=== PATIENT | female | born 1950 | race Caucasian/White ===

== ENCOUNTER 2017-07-07 07:22 | Inpatient (IN) | payer MEDICARE ==
[~2017-07-07] VITALS: Ht 165.1 cm; Wt 69.9 kg
[2017-07-07] MEDS ORDERED: SODIUM CHLORIDE 0.9% 1000ML 1,000 ML IV STA (07:33)
[2017-07-07] MEDS ORDERED: ALBUTEROL SULF 0.083% NEB SOLN 3 ML NEB NEB STA (07:33)
[2017-07-07] MEDS ORDERED: ONDANSETRON HCL INJ 2 MG/ML VIAL IV STA (07:36)
[2017-07-07] MEDS ORDERED: ALBUTEROL/IPRATROPIUM 3 ML NEB NEB ONE (07:45)
[2017-07-07 08:00] LABS: BASOPHILS # (AUTO) 0.1 (0.0-0.1); BASOPHILS % 0.5 % (0.0-1.0); EOSINOPHILS # (AUTO) 0.2 (0.0-0.4); EOSINOPHILS % 1.3 % (0.0-6.0); HEMATOCRIT 32.5 % (34.2-44.1); LYMPHOCYTES # (AUTO) 5.5 (1.0-3.2); LYMPHOCYTES % 34.3 % (18.0-39.1); MEAN CORPUSCULAR HEMOGLOBIN 27.2 pg (28-32); MEAN CORPUSCULAR HGB CONC 30.8 g/dL (31-35); MEAN CORPUSCULAR VOLUME 88.3 fL (81-99); MONOCYTES % 5.9 % (4.4-11.3); NEUTROPHILS # (AUTO) 9.1 (2.1-6.9); NEUTROPHILS % 56.2 % (38.7-80.0); PLATELET COUNT 416 x10e3/uL (140-360); RED BLOOD COUNT 3.68 x10e6/uL (3.6-5.1); RED CELL DISTRIBUTION WIDTH 25.7 % (11.7-14.4)
[2017-07-07 08:15] LABS: ALBUMIN 3.7 g/dL (3.5-5.0); ALBUMIN/GLOBULIN RATIO 1.2 (0.8-2.0); CALCIUM 9.2 mg/dL (8.4-10.2); CREATININE, SERUM 1.05 mg/dL (0.57-1.11); MAGNESIUM 1.3 MG/DL (1.3-2.1)
[2017-07-07 08:21] LABS: CREATINE KINASE MB 0.6 ng/mL (0.00-5.00); TROPONIN I 0.017 ng/mL (0-0.300)
--- NOTE | 2017-07-07 09:30 | Diagnostic Imaging Report ---
Portable chest x-ray CPT code 93676 INDICATION: COPD, cough, shortness of breath COMPARISON: None FINDINGS: Frontal view of the chest obtained at 0538 hours. The cardiac silhouette is normal. There are several calcifications of the aortic arch. The pulmonary vascular marking are normal. The lungs demonstrate diffuse hyperinflation. There is a scar or chronic atelectasis in the left midlung field. No evidence of mass or infiltrate. The costophrenic angles are sharp. There is no pneumothorax. The osseous structures are intact and normal in morphology. IMPRESSION: 1. Pulmonary hyperinflation suggestive of COPD. 2. No acute cardiopulmonary process. Signed by: Dr. Madhavi Vera MD on 07/07/2017 9:27 AM
[2017-07-07 09:43] LABS: BILIRUBIN,URINE NEGATIVE (NEGATIVE); KETONES,URINE NEGATIVE (NEGATIVE); LEUKOCYTE ESTERASE ,URINE 2+ (NEGATIVE); URINE UROBILINOGEN 0.2 mg/dL (0.2 - 1)
[2017-07-07] MEDS ORDERED: MAGNESIUM SULFATE 2GM/50ML 50 ML IV ONE (09:45)
[2017-07-07 10:23] LABS: NITRITE,URINE POSITIVE (NEGATIVE)
[2017-07-07 10:24] LABS: CLARITY,URINE SL CLOUDY (CLEAR); COLOR,URINE YELLOW (YELLOW); PROTEIN,URINE DIPSTICK 1+ (NEGATIVE)
[2017-07-07 10:28] LABS: BACTERIA,URINE RARE /HPF; EPITHELIAL CELLS,URINE RARE /LPF; RBC,URINE 0-5 /HPF (0-5); WBC,URINE (MAN) 0-5 /HPF (0-5)
[2017-07-07 10:47] LABS: HYPOCHROMASIA SLIGHT; PLATELET ESTIMATE SLIGHTLY INCREASED
[2017-07-07 10:48] LABS: ANISOCYTOSIS MODE; PLATELET MORPHOLOGY COMMENT FEW GIANT; POIKILOCYTOSIS SLIGHT
[2017-07-07 10:49] LABS: RBC MORPHOLOGY COMMENT NORMAL
[2017-07-07] MEDS: ALBUTEROL/IPRATROPIUM 3 ML NEB NEB SCH ×4 (10:57→23:15)
[2017-07-07] MEDS: CEFTRIAXONE SOD 1 GM VIAL IV SCH (11:21)
[2017-07-07] MEDS: AZITHROMYCIN 250 MG TAB PO SCH (11:21)
[2017-07-07] MEDS: METHYLPREDNISOLONE SOD SUCC 40 MG/ML VIAL IV SCH ×2 (11:21→18:49)
[2017-07-07 12:18] VITALS: BP 121/51
[2017-07-07 12:35] VITALS: BP 121/55
[2017-07-07 12:46] VITALS: BP 121/55
[2017-07-07] MEDS ORDERED: VALIUM10 MG (13:02)
[2017-07-07] MEDS ORDERED: D3 DOTS2000 UNIT PO (13:02)
[2017-07-07] MEDS ORDERED: TRIAMTERENE PO (13:02)
[2017-07-07] MEDS ORDERED: ULTRAM50 MG (13:02)
[2017-07-07] MEDS ORDERED: METOPROLOL TART25 MG PO (13:02)
[2017-07-07] MEDS ORDERED: ADVAIR 250-501 EACH INH (13:02)
[2017-07-07] MEDS ORDERED: B-121000 MCG PO (13:02)
[2017-07-07] MEDS ORDERED: zinc PO (13:02)
[2017-07-07] MEDS ORDERED: B-6 PO (13:02)
[2017-07-07] MEDS ORDERED: NEXIUM40 MG PO (13:02)
[2017-07-07] MEDS ORDERED: LIBRAX CAPSULE1 EACH PO (13:02)
[2017-07-07] MEDS ORDERED: ZOFRAN ODT4 MG PO (13:02)
[2017-07-07] MEDS ORDERED: [UNRECOGNIZED DRUG - REMARK] (13:02)
[2017-07-07] MEDS ORDERED: ALLEGRA ALLERGY60 MG PO (13:02)
[2017-07-07] MEDS ORDERED: [UNRECOGNIZED DRUG - OTHER] (13:02)
[2017-07-07] MEDS: SODIUM CHLORIDE 0.9% 1000ML 1,000 ML IV SCH ×2 (13:52→17:34)
[2017-07-07 16:00] VITALS: BP 118/57
[2017-07-07 16:09] LABS: CREATINE KINASE MB 1.1 ng/mL (0.00-5.00); TROPONIN I 0.07 ng/mL (0-0.300)
[2017-07-07] MEDS ORDERED: ACETAMINOPHEN 325 MG TAB PO PRN (17:30)
[2017-07-07] MEDS ORDERED: TRAMADOL HCL 50 MG TAB PO PRN (17:30)
[2017-07-07] MEDS ORDERED: ONDANSETRON HCL INJ 2 MG/ML VIAL IV PRN (17:30)
[2017-07-07] MEDS: METOPROLOL TARTRATE 25 MG TAB PO SCH (18:41)
[2017-07-07 19:51] VITALS: BP 109/64
[2017-07-07] MEDS: PANTOPRAZOLE SOD 40 MG TABEC PO SCH (20:58)
[2017-07-07 23:56] LABS: TROPONIN I 0.049 ng/mL (0-0.300)
--- NOTE | 2017-07-07 23:59 | History and Physical ---
CHIEF COMPLAINT: Shortness of breath. 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 Patient reports that she is on Spiriva and Advair and also some nebulizing treatments, and over the last day or so she has been having some shortness of breath. She denies any chest pain or palpitations. She denies any recent cough, congestion, or any recent fever. No sick contacts around her home. She does use home O2. Patient was seen and evaluated at bedside in the IMU, currently doing much better. She did require BiPAP on admission, magnesium, multiple rounds of neb treatments and steroids. REVIEW OF SYSTEMS: Pertinent positive: Shortness of breath, wheezing. Pertinent negative: Denies any chest pain, palpitation, nausea, vomiting, diarrhea, dysuria, hematuria, frequency, urgency, lightheadedness, dizziness, abdominal pain, headache, or any other complaints. The rest of the 14-point review of systems have been reviewed with the patient and are negative. ALLERGIES: TO CODEINE. HOME MEDICATIONS: She takes: 1. Librax 1 tab p.o. at bedtime. 2. Vitamin D3 2000 units daily. 3. Vitamin B12 1000 mcg daily. 4. Valium 10 mg as needed. 5. Nexium 40 mg at bedtime. 6. Fexofenadine 60 mg daily. 7. Advair 1 inhaled b.i.d. 8. Metoprolol tartrate 25 mg twice daily. 9. Tramadol. PAST MEDICAL HISTORY: COPD, GERD, hypertension. SURGICAL HISTORY: She had tubal ligation and C-sections. She has had pneumothorax in which she required chest tube placement. She has also had cholecystectomy. FAMILY HISTORY: Hypertension and diabetes. SOCIAL HISTORY: Smoked for many years, quit 3 years ago. No drugs, no alcohol. Good social support. PHYSICAL EXAMINATION: VITAL SIGNS: Temperature is 98.7, pulse is 99, respiratory rate is 18, blood pressure is 118/57, pulse ox 97% on 2 liters nasal cannula. GENERAL: Not in acute distress, alert and oriented x3, cooperative on exam. HEENT: Head: Normocephalic, atraumatic. Eyes: Pupils equal, round, and reactive to light bilaterally. Extraocular movements intact bilaterally. Throat: No evidence of any erythema or exudates in the posterior pharynx. Has poor dentition. NECK: Supple with good range of motion. PULMONARY: Has expiratory wheezing appreciated. Decreased breath sounds bilaterally. No crackles, no rales, no rhonchi. CARDIOVASCULAR: Positive S1 and S2. No murmurs, rubs, or gallops appreciated. ABDOMEN: Soft, nondistended, nontender to palpation. Bowel sounds are present. MUSCULOSKELETAL: Strength is 5/5 throughout. No evidence of any musculoskeletal deficit on exam. SKIN: Intact. Warm to touch. Good cap refill. PSYCHIATRIC: Normal affect and mood. EXTREMITIES: No edema. Good range of motion throughout. LAB FINDINGS: Showed white count 16, hemoglobin 10, hematocrit is 33, and platelets of 416,000. Chemistry: Sodium 137, potassium is 4, chloride 99, bicarb 30, anion gap of 12, BUN is 22, creatinine is 1, glucose is 177, calcium 9.2, magnesium 1.3. Total bilirubin is 0.7. LFTs were normal. Troponins were negative. CK 17, albumin 3.7. Urinalysis showed positive nitrite, leukocyte esterase 2+. Serology: Flu was negative. MICROBIOLOGY: Blood and urine cultures are pending. IMAGING STUDIES: Chest x-ray showed pulmonary hyperinflation suggestive of COPD. No other acute cardiopulmonary process was seen. ASSESSMENT AND PLAN: 1. Acute exacerbation of chronic obstructive pulmonary disease--continue with nebulizer treatments, intravenous steroids, antibiotics, p.r.n. bilevel positive airway pressure, nasal cannula. If no improvement, will likely need pulmonary consultation. Continue with her Spiriva and Advair. Respiratory distress due to underlying acute exacerbation of chronic obstructive pulmonary disease. 2. Chronic smoker--patient reports quitting more than 3 years ago, but does not need nicotine patch. 3. Hypertension--stable, continue same home medications. 4. History of gastroesophageal reflux disease--continue on proton pump inhibitor. 5. Prophylaxis will be Lovenox. 6. Fluids, electrolytes, nutrients. Intravenous fluids at 75 mL per hour, heart healthy diet. 7. Disposition. Inpatient, will continue to follow. This case took more than 40 minutes of critical care time due to the patient's underlying respiratory distress requiring significant high level of care. Job#: [id number]
[2017-07-08] VITALS (12 sets, daily range): BP systolic 110–140; BP diastolic 44–68
[2017-07-08] MEDS: METHYLPREDNISOLONE SOD SUCC 40 MG/ML VIAL IV SCH ×3 (02:00→21:20)
[2017-07-08] MEDS: ALBUTEROL/IPRATROPIUM 3 ML NEB NEB SCH ×6 (03:05→19:45)
[2017-07-08] MEDS: SALMETEROL/FLUTICASONE 250/50 INH SCH ×2 (07:00→19:00)
[2017-07-08 07:23] LABS: BASOPHILS % 0.1 % (0.0-1.0); HEMATOCRIT 24.3 % (34.2-44.1); LYMPHOCYTES # (AUTO) 0.8 (1.0-3.2); MEAN CORPUSCULAR HGB CONC 31.3 g/dL (31-35); MEAN CORPUSCULAR VOLUME 86.5 fL (81-99); MONOCYTES # (AUTO) 0.5 (0.2-0.8); MONOCYTES % 6.2 % (4.4-11.3); NEUTROPHILS % 79.1 % (38.7-80.0); PLATELET COUNT 228 x10e3/uL (140-360); RED BLOOD COUNT 2.81 x10e6/uL (3.6-5.1); RED CELL DISTRIBUTION WIDTH 25.4 % (11.7-14.4)
[2017-07-08 07:26] LABS: HEMOGLOBIN 7.6 g/dL (12.0-16.0)
--- NOTE | 2017-07-08 07:27 | Progress Note ---
DATE: July 08, 2017 TIME: 6:50 a.m. OVERNIGHT: Patient cough is improving. REVIEW OF SYSTEMS: Denies any dizziness. PHYSICAL EXAMINATION: VITAL SIGNS: Reviewed. GENERAL APPEARANCE: Tired-appearing woman resting in bed. HEENT: Anicteric. Pupils respond to light. No oral lesions. CARDIOVASCULAR: Normal S1 and S2. LUNGS: Mildly coarse breath sounds. ABDOMEN: Soft, nontender, nondistended. EXTREMITIES: No edema. SKIN: Dry. PSYCHIATRIC: Flat affect. LABS: Reviewed. MEDICATIONS: Reviewed. ASSESSMENT: This is a 67-year-old woman: 1. Acute exacerbation of chronic obstructive pulmonary disease. 2. Urinary tract infection. 3. History of cigarette abuse. 4. Acute kidney injury. 5. Normocytic anemia, moderate. 6. Physical deconditioning. PLAN: 1. Continue ceftriaxone, azithromycin and continue Solu-Medrol. 2. Continue nebs q.4. p.r.n. 3. Continue antitussive medication. 4. Physical therapy for physical deconditioning. 5. Continue Protonix for GI prophylaxis. Add Lovenox for DVT prophylaxis. Job#: [id number]
[2017-07-08 07:32] LABS: ANION GAP 11.4 mmol/L (8-16); CALCIUM 8.1 mg/dL (8.4-10.2); CREATININE, SERUM 0.96 mg/dL (0.57-1.11); POTASSIUM 4.4 mmol/L (3.5-5.1)
[2017-07-08] MEDS: SODIUM CHLORIDE 0.9% 1000ML 1,000 ML IV SCH ×2 (09:00→21:20)
[2017-07-08] MEDS ORDERED: GUAIFENESIN 600MG/DEXTROMETHORPHAN 30MG TABSR PO SCH (09:00)
[2017-07-08] MEDS: AZITHROMYCIN 250 MG TAB PO SCH (09:01)
[2017-07-08] MEDS: BENZONATATE 100 MG CAP PO SCH ×3 (09:01→21:20)
[2017-07-08] MEDS: CEFTRIAXONE SOD 1 GM VIAL IV SCH (09:01)
[2017-07-08] MEDS: METOPROLOL TARTRATE 25 MG TAB PO SCH ×2 (09:01→17:42)
[2017-07-08] MEDS: GUAIFENESIN 600 MG TAB PO SCH ×2 (09:31→17:42)
[2017-07-08 13:27] LABS: ANISOCYTOSIS SLIG; HYPOCHROMASIA MODERATE; NUCLEATED RED BLOOD CELLS 1; PLATELET ESTIMATE ADEQUATE; POIKILOCYTOSIS SLIG; RBC MORPHOLOGY COMMENT ABNORMAL
[2017-07-08 13:28] LABS: ELLIPTOCYTE, RBC SLIGHT; PLATELET MORPHOLOGY COMMENT FEW LARGE; STOMATOCYTES SLIG
[2017-07-08 14:46] LABS: BASOPHILS % 0.2 % (0.0-1.0); HEMATOCRIT 27.4 % (34.2-44.1); HEMOGLOBIN 8.5 g/dL (12.0-16.0); LYMPHOCYTES % 8.8 % (18.0-39.1); MEAN CORPUSCULAR HEMOGLOBIN 27.2 pg (28-32); MEAN CORPUSCULAR VOLUME 87.5 fL (81-99); MONOCYTES # (AUTO) 0.4 (0.2-0.8); MONOCYTES % 3.6 % (4.4-11.3); NEUTROPHILS # (AUTO) 9.6 (2.1-6.9); NEUTROPHILS % 85.2 % (38.7-80.0); PLATELET COUNT 275 x10e3/uL (140-360); RED BLOOD COUNT 3.13 x10e6/uL (3.6-5.1); RED CELL DISTRIBUTION WIDTH 25.9 % (11.7-14.4)
[2017-07-08 15:21] LABS: HYPOCHROMASIA MODERATE; POIKILOCYTOSIS SLIGHT; TEAR DROP CELLS FEW
[2017-07-08 15:22] LABS: ANISOCYTOSIS SLIG
[2017-07-08 15:23] LABS: ELLIPTOCYTE, RBC SLIGHT; PLATELET ESTIMATE ADEQUATE; PLATELET MORPHOLOGY COMMENT NORMAL; RBC MORPHOLOGY COMMENT ABNORMAL; STOMATOCYTES SLIG
[2017-07-08] MEDS: ENOXAPARIN SOD INJ 40 MG/0.4 ML SYR SC SCH (17:42)
[2017-07-08] MEDS: PANTOPRAZOLE SOD 40 MG TABEC PO SCH (21:20)
[2017-07-09] VITALS: BP 114/46
[2017-07-09] MEDS: ALBUTEROL/IPRATROPIUM 3 ML NEB NEB SCH ×7 (03:00→23:20)
[2017-07-09 04:00] VITALS: BP 143/74
[2017-07-09 06:36] LABS: BASOPHILS % 0.2 % (0.0-1.0); HEMATOCRIT 24.5 % (34.2-44.1); LYMPHOCYTES # (AUTO) 1.2 (1.0-3.2); LYMPHOCYTES % 12.1 % (18.0-39.1); MEAN CORPUSCULAR HEMOGLOBIN 27.2 pg (28-32); MEAN CORPUSCULAR HGB CONC 31.4 g/dL (31-35); MEAN CORPUSCULAR VOLUME 86.6 fL (81-99); MONOCYTES # (AUTO) 0.5 (0.2-0.8); MONOCYTES % 5.2 % (4.4-11.3); NEUTROPHILS # (AUTO) 8.3 (2.1-6.9); NEUTROPHILS % 80.3 % (38.7-80.0); PLATELET COUNT 260 x10e3/uL (140-360); RED BLOOD COUNT 2.83 x10e6/uL (3.6-5.1); RED CELL DISTRIBUTION WIDTH 25.2 % (11.7-14.4)
[2017-07-09 07:05] LABS: HEMOGLOBIN 7.7 g/dL (12.0-16.0)
[2017-07-09 07:07] LABS: ANION GAP 12.7 mmol/L (8-16); BLOOD UREA NITROGEN 25 mg/dL (7-26); BUN/CREATININE RATIO 29 (6-25); CARBON DIOXIDE 26 mmol/L (22-29); CHLORIDE 108 mmol/L (98-107); CREATININE, SERUM 0.87 mg/dL (0.57-1.11); EST GLOMERULAR FILTRATION RATE > 60 ML/MIN (60-); GLUCOSE 125 mg/dL (74-118); POTASSIUM 4.7 mmol/L (3.5-5.1); SODIUM 142 mmol/L (136-145)
[2017-07-09 07:45] VITALS: BP 130/62
--- NOTE | 2017-07-09 07:59 | Progress Note ---
DATE: July 09, 2017 TIME: 7:19 a.m. OVERNIGHT: Coughing has decreased. REVIEW OF SYSTEMS: Denies any dizziness. PHYSICAL EXAMINATION: VITAL SIGNS: Reviewed. Temperature 96.8, blood pressure 143/74, pulse 118. GENERAL APPEARANCE: Tired-appearing woman resting in bed. HEENT: Anicteric. CARDIOVASCULAR: Normal S1 and S2. LUNGS: Coarse breath sounds with cough with deep inspiration. ABDOMEN: Soft, nontender, nondistended. EXTREMITIES: No edema. SKIN: Dry. PSYCHIATRIC: Flat affect. LABS: Reviewed. MEDICATIONS: Reviewed. ASSESSMENT: A 67-year-old woman: 1. Acute exacerbation of chronic obstructive pulmonary disease. 2. Urinary tract infection. 3. History of cigarette abuse. 4. Acute kidney injury. 5. Normocytic anemia, moderate. 6. Physical deconditioning. 7. Worsening anemia. PLAN: 1. Continue nebulization treatments and antitussive medication. 2. Continue physical therapy. 3. Continue prophylactic treatments. 4. Worsening anemia at 7.7 today. Will give 1 unit of packed red blood cell transfusion. Will obtain anemia panel. 5. Acute kidney injury, improving. 6. Will begin to wean steroids. Job#: [id number]
[2017-07-09] MEDS: METOPROLOL TARTRATE 25 MG TAB PO SCH ×2 (08:03→20:41)
[2017-07-09] MEDS: METHYLPREDNISOLONE SOD SUCC 40 MG/ML VIAL IV SCH ×2 (08:03→20:41)
[2017-07-09] MEDS: AZITHROMYCIN 250 MG TAB PO SCH (08:04)
[2017-07-09] MEDS: GUAIFENESIN 600 MG TAB PO SCH ×2 (08:04→16:08)
[2017-07-09] MEDS: BENZONATATE 100 MG CAP PO SCH ×3 (08:04→20:41)
[2017-07-09] MEDS: CEFTRIAXONE SOD 1 GM VIAL IV SCH (08:04)
[2017-07-09] MEDS ORDERED: DEXAMETHASONE SOD PHOS 10 MG/1 ML VIAL IV PRN (09:00)
[2017-07-09] MEDS ORDERED: ACETAMINOPHEN 325 MG TAB PO PRN (09:00)
[2017-07-09] MEDS ORDERED: DIPHENHYDRAMINE HCL INJ 50 MG/ML VIAL IV PRN (09:00)
[2017-07-09] MEDS ORDERED: SODIUM CHLORIDE 0.9% 250ML 250 ML IV ONE (09:45)
[2017-07-09 09:50] LABS: FERRITIN 1164.66 ng/mL (4.63-204.00)
[2017-07-09] MEDS: SODIUM CHLORIDE 0.9% 1000ML 1,000 ML IV SCH (09:53)
[2017-07-09 10:29] LABS: ANISOCYTOSIS SLIGHT; BAND NEUTROPHILS % (MANUAL) 2 %; HYPOCHROMASIA MODERATE; LYMPHOCYTES % (MANUAL) 14 % (19-48); MONOCYTES % (MANUAL) 2 % (3.4-9.0); NEUTROPHILS % (MANUAL) 82 % (40-74); NUCLEATED RED BLOOD CELLS 1; PLATELET ESTIMATE ADEQUATE; POIKILOCYTOSIS SLIGHT; RBC MORPHOLOGY COMMENT ABNORMAL
[2017-07-09 10:30] LABS: PLATELET MORPHOLOGY COMMENT NORMAL; TARGET CELLS FEW
[2017-07-09] MEDS: SALMETEROL/FLUTICASONE 250/50 INH SCH ×2 (11:23→19:23)
[2017-07-09 11:42] VITALS: BP 157/60
[2017-07-09 12:21] LABS: HEMATOCRIT 28.3 % (34.2-44.1); HEMOGLOBIN 8.8 g/dL (12.0-16.0)
--- NOTE | 2017-07-09 15:33 | Consultation ---
DATE OF CONSULTATION: July 09, 2017 ATTENDING DOCTOR: Dr. Maradiaga. REASON FOR CONSULTATION: Anemia. 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 She is in hospital with worsening shortness of breath, fatigue, lethargic, and tiredness. At the time of admission, patient's hemoglobin was 9, dropped to 7. She denies any GI bleed. Her peripheral smear shows microcytic anemia. She is currently following parts counter specialist. Clinical condition is improving. PAST MEDICAL HISTORY: COPD, GERD, hypertension, hyperlipidemia, and myelodysplastic syndrome. ALLERGIES: CODEINE. MEDICATIONS: List reviewed. SOCIAL HISTORY: She denies any current habits. She stopped smoking 3 years ago. She used to smoke 1 pack a day. FAMILY HISTORY: Reviewed. Positive for hypertension and diabetes. REVIEW OF SYSTEMS: Twelve-point reviewed, as per the HPI. PHYSICAL EXAMINATION GENERAL: Alert, awake, communicative. HEENT: Normocephalic, atraumatic. Sclerae pink. Conjunctivae clear. NECK: Supple. CHEST: Clear to auscultation with decreased breath sounds in the bases. Occasional rhonchi. CARDIOVASCULAR: Regular rate and rhythm. ABDOMEN: Soft, nontender. EXTREMITIES: No clubbing, cyanosis, or edema. SUPER[employer]OR [employer]ING: Grossly intact. SKIN: Intact. MUSCULOSKELETAL: Normal inspection. ASSESSMENT AND PLAN: Patient with history of multiple medical conditions. I am currently following for: 1. Anemia. Patient has history of chronic anemia. Her workup is consistent with a myelodysplastic syndrome and she is currently on Aranesp treatment. Patient's current hemoglobin dropped to 7. She also has microcytosis on the smear. Will check iron and ferritin level. Recommendation: Blood transfusion, patient declined it. Will repeat the CBC today. Incase the worsening anemia, will re-communicate about blood transfusion. Will start patient on Aranesp. Will monitor patient closely. 2. Chronic obstructive pulmonary disease. Patient currently on nebulizer, steroids, and antibiotic treatment. Symptomatically doing better. 3. Hypertension. She is currently on home medication. Blood pressure is controlled. 4. Gastroesophageal reflux disease. She is on proton pump inhibitor. Will continue remaining care. Will follow patient. Job#: [id number] VAS
[2017-07-09 15:54] VITALS: BP 143/66
[2017-07-09] MEDS: ENOXAPARIN SOD INJ 40 MG/0.4 ML SYR SC SCH (16:08)
[2017-07-09 19:48] VITALS: BP 127/55
[2017-07-09] MEDS: PANTOPRAZOLE SOD 40 MG TABEC PO SCH (20:41)
[2017-07-10] VITALS: BP 161/69
[2017-07-10 01:27] VITALS: BP 161/69
[2017-07-10] MEDS: ALBUTEROL/IPRATROPIUM 3 ML NEB NEB SCH ×2 (03:15→09:10)
[2017-07-10 04:00] VITALS: BP 143/65
[2017-07-10] MEDS ORDERED: TESSALON PERLE100 MG PO (06:41)
[2017-07-10] MEDS ORDERED: LEVAQUIN500 MG PO (06:41)
[2017-07-10] MEDS ORDERED: MUCINEX600 MG PO (06:41)
[2017-07-10] MEDS ORDERED: PREDNISONE20 MG PO (06:41)
[2017-07-10 07:43] LABS: FERRITIN 1081.06 ng/mL (4.63-204.00)
[2017-07-10 08:05] VITALS: BP 135/63
[2017-07-10 08:12] LABS: BASOPHILS # (AUTO) 0.1 (0.0-0.1); BASOPHILS % 0.4 % (0.0-1.0); HEMATOCRIT 28.5 % (34.2-44.1); HEMOGLOBIN 8.9 g/dL (12.0-16.0); LYMPHOCYTES # (AUTO) 2.7 (1.0-3.2); LYMPHOCYTES % 16.6 % (18.0-39.1); MEAN CORPUSCULAR HEMOGLOBIN 27.3 pg (28-32); MEAN CORPUSCULAR HGB CONC 31.2 g/dL (31-35); MEAN CORPUSCULAR VOLUME 87.4 fL (81-99); MONOCYTES # (AUTO) 1.2 (0.2-0.8); MONOCYTES % 7.7 % (4.4-11.3); NEUTROPHILS # (AUTO) 11.4 (2.1-6.9); NEUTROPHILS % 71.2 % (38.7-80.0); PLATELET COUNT 383 x10e3/uL (140-360); RED BLOOD COUNT 3.26 x10e6/uL (3.6-5.1); RED CELL DISTRIBUTION WIDTH 25.7 % (11.7-14.4)
[2017-07-10 08:34] LABS: ANION GAP 13.9 mmol/L (8-16); BLOOD UREA NITROGEN 29 mg/dL (7-26); BUN/CREATININE RATIO 34 (6-25); CALCIUM 8.5 mg/dL (8.4-10.2); CARBON DIOXIDE 27 mmol/L (22-29); CHLORIDE 106 mmol/L (98-107); CREATININE, SERUM 0.85 mg/dL (0.57-1.11); EST GLOMERULAR FILTRATION RATE > 60 ML/MIN (60-); GLUCOSE 105 mg/dL (74-118); POTASSIUM 4.9 mmol/L (3.5-5.1); SODIUM 142 mmol/L (136-145)
[2017-07-10] MEDS: BENZONATATE 100 MG CAP PO SCH (08:49)
[2017-07-10] MEDS: CEFTRIAXONE SOD 1 GM VIAL IV SCH (08:49)
[2017-07-10] MEDS: METHYLPREDNISOLONE SOD SUCC 40 MG/ML VIAL IV SCH (08:49)
[2017-07-10] MEDS: GUAIFENESIN 600 MG TAB PO SCH (08:49)
[2017-07-10] MEDS: AZITHROMYCIN 250 MG TAB PO SCH (08:50)
[2017-07-10] MEDS: METOPROLOL TARTRATE 25 MG TAB PO SCH (08:50)
[2017-07-10] MEDS: SALMETEROL/FLUTICASONE 250/50 INH SCH (09:05)
--- NOTE | 2017-07-10 10:50 | Progress Note ---
DATE: July 10, 2017 Patient was seen and examined today. She appears better. Clinical condition is improving. PHYSICAL EXAMINATION GENERAL: Alert, awake and communicative. HEENT: Normocephalic and atraumatic. Sclerae pink. Conjunctivae clear. NECK: Supple. CHEST: Clear to auscultation. CARDIOVASCULAR: Regular rate and rhythm. ABDOMEN: Soft. EXTREMITIES: No edema. LABS AND IMAGING: Reviewed. ASSESSMENT AND PLAN 1. Patient with a history of myelodysplastic syndrome with anemia: Patient's hemoglobin is improving. She was on Aranesp. Last shot was Friday. She received 400 units. Current recommendations are close observation. 2. Chronic obstructive pulmonary disease : The patient is currently on treatment. Clinically doing better. At this time, will continue remaining care. Will follow the patient. Job#: [id number] DEANNA
--- NOTE | 2017-07-10 11:05 | Discharge Summary ---
PRINCIPAL DIAGNOSES 1. Acute exacerbation of chronic obstructive pulmonary disease. 2. Urinary tract infection. 3. Moderate severe anemia, status post blood transfusion. 4. Acute kidney injury. 5. Question of myelodysplastic syndrome. 6. Physical deconditioning. SECONDARY DIAGNOSIS: Chronic obstructive pulmonary disease. CHIEF COMPLAINT: Shortness of breath. HISTORY OF PRESENT ILLNESS: A 67-year-old woman with shortness of breath. Refer to the H and P for further details. HOSPITAL COURSE: Patient was found to have acute exacerbation of COPD. Flu test was negative. She received antibiotics and steroids. Also, had a urinary tract infection treated with antibiotics. Cultures remained negative. Patient had worsening anemia and required blood transfusion. Repeat H and H is pending today. She was evaluated by Dr. Todd of hematology. Also, myelodysplastic syndrome. She will need to be further managed outpatient. There was some question of positive blood cultures. Will follow up results prior to discharge. Patient may be appropriate for discharge later today. MEDICATIONS: Per electronic medical record and include Levaquin, antitussive medications and prednisone. CONDITION ON DISCHARGE: Stable and improved. DISCHARGE LOCATION: Home. FOLLOWUP 1. Primary care doctor in 1 week. 2. Follow up with Dr. Todd in 2 weeks. YUE OQUENDO MD Job#: [id number] IN
--- NOTE | 2017-07-10 14:00 | Consultation ---
REASON FOR CONSULTATION: Pneumonia, exacerbation of COPD, and recommendation of antibiotic in a patient who is immunocompromised. HISTORY OF PRESENT ILLNESS: This patient who is a very pleasant 67-year-old white female with history of COPD, on home oxygen between 2 to 3 liters. She also has history of MDS. The patient comes in on July 07, 2017 with shortness of breath and cough, which was productive. She was quite sick. She had to come to the emergency room, called 911. She was brought here, started on steroid, antibiotic. Infectious disease was consulted today. She says she is feeling well. She is going to get ready to go home. She is still short of breath. She still has some cough. She still has wheezing, but that is typical for her. PAST MEDICAL HISTORY: COPD, MDS, hypertension, GERD. PAST SURGICAL HISTORY: Tube ligation, , pneumothorax in the past. Her pulmonary doctor is Dr. Preciado in the [facility]. ALLERGIES: CODEINE. SOCIAL HISTORY: There is currently no smoking, drug abuse and alcohol abuse, but she smoked for several years, quit 3 years ago. REVIEW OF SYSTEMS: At the present time, she states she is back to her baseline in terms of the cough and shortness of breath, but otherwise she has no other complaints. HEENT: Negative. PULMONARY: Negative. CARDIAC: Negative. : Negative. LABORATORY DATA: Reviewed. Her blood culture is showing gram-positive rods. There are no sputum cultures. Her chest x-ray shows pulmonary hyperinflations and COPD. PHYSICAL EXAMINATION GENERAL: She is currently alert, oriented, does not seem to be in acute distress. VITALS: Stable, afebrile. There is no fever since admission. HEENT: She does not appear icteric. Normocephalic. CHEST: Few rhonchi bilaterally. COR: S1 and S2, no murmur. ABDOMEN: Soft. Bowel sounds present. MEDICATION LIST: Reviewed. LABORATORY DATA: Reviewed. IMPRESSION 1. Bacteremia gram-positive rods contamination. 2. Chronic obstructive pulmonary disease exacerbation with probably superimposed bacterial pneumonia. She is currently doing well. Okay to discharge with Levaquin. 3. Myelodysplastic syndrome and anemia, seems to be stable. 4. Chronic obstructive pulmonary disease, on oxygen. Discussed with the patient. I answered all her questions. Discussed with the . I reviewed her chart. Time spent is 1 hour. Thank you for asking me to see this patient. Job#: [id number] LULÚ
== END 2017-07-10 12:50 | disposition home or self-care (01) | DRG 191 ==
LOC: ER 07:22 → ERHOLD 09:47 → IMCU 11:29 → MED/SURG 07-09 23:18
PROVIDERS: ADMIT Internal Medicine; ATTEND Internal Medicine
PROC: 30233N1 Transfusion of Nonautologous Red Blood Cells into Peripheral Vein, Percutaneous Approach (ICD-10-PCS; principal; 2017-07-09)
DX: J44.1 Chronic obstructive pulmonary disease with (acute) exacerbation (principal); N17.9 Acute kidney failure, unspecified; N39.0 Urinary tract infection, site not specified; D46.9 Myelodysplastic syndrome, unspecified; K21.9 Gastro-esophageal reflux disease without esophagitis; D64.9 Anemia, unspecified; Z87.891 Personal history of nicotine dependence
CPT/HCPCS: 36415; 71010; 80048; 80053; 81001; 82550; 82553; 82607; 82728; 83540; 83735; 83880; 84466; 84484; 85014; 85018; 85025; 86850; 86900; 86920; 87040; 87071; 87086; 87205; 87400; 93005; 94640; 94645; 94660; 99285; J0696; J1650; J2405; J2920; J7030

== ENCOUNTER 2017-07-29 19:53 | Inpatient (IN) | payer MEDICARE ==
[~2017-07-29] VITALS: Ht 165.1 cm; Wt 68.5 kg
[~2017-07-29 19:53] MED LIST: ADVAIR 250-501 EACH INH; ALLEGRA ALLERGY60 MG PO; B-121000 MCG PO; B-6 PO; D3 DOTS2000 UNIT PO; LEVAQUIN500 MG PO; LIBRAX CAPSULE1 EACH PO; METOPROLOL TART25 MG PO; MUCINEX600 MG PO; NEXIUM40 MG PO; PREDNISONE20 MG PO; TESSALON PERLE100 MG PO; TRIAMTERENE PO; ULTRAM50 MG; VALIUM10 MG; ZOFRAN ODT4 MG PO; [UNRECOGNIZED DRUG - OTHER]; [UNRECOGNIZED DRUG - REMARK]; zinc PO
[2017-07-29] MEDS ORDERED: SODIUM CHLORIDE 0.9% 500ML 500 ML IV STA (19:59)
[2017-07-29] MEDS ORDERED: ALBUTEROL SULF 0.083% NEB SOLN 3 ML NEB NEB STA (20:07)
[2017-07-29] MEDS ORDERED: PROPOFOL IV EMULSION 10MG/ML 100 ML ONE (20:09)
[2017-07-29] MEDS: PROPOFOL IV EMULSION 10MG/ML 100 ML IV PRN ×9 (20:10→23:03)
[2017-07-29] MEDS ORDERED: SODIUM CHLORIDE 0.9% 1000ML 1,000 ML ONE (20:11)
[2017-07-29] MEDS ORDERED: SODIUM CHLORIDE 0.9% 1000ML 1,000 ML IV ONE (20:15)
[2017-07-29] MEDS ORDERED: IPRATROPIUM BROMIDE 0.02% 2.5 ML NEB NEB ONE (20:15)
[2017-07-29 20:21] LABS: BASOPHILS # (AUTO) 0.1 (0.0-0.1); BASOPHILS % 0.5 % (0.0-1.0); EOSINOPHILS # (AUTO) 0.3 (0.0-0.4); EOSINOPHILS % 2.2 % (0.0-6.0); HEMATOCRIT 36.2 % (34.2-44.1); HEMOGLOBIN 10.6 g/dL (12.0-16.0); LYMPHOCYTES # (AUTO) 8.5 (1.0-3.2); LYMPHOCYTES % 53.8 % (18.0-39.1); MEAN CORPUSCULAR HEMOGLOBIN 28.1 pg (28-32); MEAN CORPUSCULAR HGB CONC 29.3 g/dL (31-35); MONOCYTES # (AUTO) 0.8 (0.2-0.8); MONOCYTES % 5.2 % (4.4-11.3); PLATELET COUNT 361 x10e3/uL (140-360); RED BLOOD COUNT 3.77 x10e6/uL (3.6-5.1); RED CELL DISTRIBUTION WIDTH 27.9 % (11.7-14.4)
[2017-07-29 20:23] LABS: BILIRUBIN,URINE NEGATIVE (NEGATIVE); COLOR,URINE YELLOW (YELLOW); KETONES,URINE NEGATIVE (NEGATIVE); LEUKOCYTE ESTERASE ,URINE NEGATIVE (NEGATIVE); NITRITE,URINE NEGATIVE (NEGATIVE); URINE UROBILINOGEN 0.2 mg/dL (0.2 - 1)
[2017-07-29 20:25] LABS: CLARITY,URINE CLEAR (CLEAR); PROTEIN,URINE DIPSTICK 1+ (NEGATIVE)
[2017-07-29 20:27] LABS: BACTERIA,URINE RARE /HPF; EPITHELIAL CELLS,URINE FEW /LPF; WBC,URINE (MAN) 0-5 /HPF (0-5)
--- NOTE | 2017-07-29 20:27 | Diagnostic Imaging Report ---
EXAMINATION: CHEST SINGLE (PORTABLE) INDICATION: Shortness of breath COMPARISON: 07/07/2017 FINDINGS: TUBES and LINES: Endotracheal tube over the mid trachea with its distal tip 5 cm above the eugene. LUNGS: The lungs are hyperinflated. There are chronic appearing changes in the lungs. PLEURA: No pleural effusion or pneumothorax. HEART AND MEDIASTINUM: The cardiomediastinal silhouette is unremarkable. BONES AND SOFT TISSUES: No acute osseous lesion. Soft tissues are unremarkable. UPPER ABDOMEN: No free air under the diaphragm. IMPRESSION: Endotracheal tube over the mid trachea with its distal tip 5 cm above the eugene. The lungs are hyperinflated. There are chronic appearing changes in the lungs. Signed by: Dr. Shashi Agarwal M.D. on 07/29/2017 8:24 PM
[2017-07-29 20:30] LABS: INR 0.89; PROTHROMBIN TIME 12.5 seconds (11.9-14.5)
[2017-07-29 20:31] LABS: PARTIAL THROMBOPLASTIN TIME 22.3 seconds (23.8-35.5)
[2017-07-29 20:40] LABS: ALANINE AMINOTRANSFERASE 19 IU/L (0-55); ALBUMIN 3.5 g/dL (3.5-5.0); ALBUMIN/GLOBULIN RATIO 1.1 (0.8-2.0); ALKALINE PHOSPHATASE 82 IU/L (40-150); ANION GAP 13.7 mmol/L (8-16); BLOOD UREA NITROGEN 21 mg/dL (7-26); BUN/CREATININE RATIO 27 (6-25); CALCIUM 8.5 mg/dL (8.4-10.2); CARBON DIOXIDE 25 mmol/L (22-29); CHLORIDE 108 mmol/L (98-107); CREATINE KINASE 16 IU/L (29-168); CREATININE, SERUM 0.79 mg/dL (0.57-1.11); EST GLOMERULAR FILTRATION RATE > 60 ML/MIN (60-); GLUCOSE 146 mg/dL (74-118); POTASSIUM 4.7 mmol/L (3.5-5.1); SODIUM 142 mmol/L (136-145)
[2017-07-29 20:44] LABS: B-TYPE NATRIURETIC PEPTIDE2 139.8 pg/mL (0-100)
[2017-07-29] MEDS: CEFTRIAXONE SOD 1 GM VIAL IV SCH (21:02)
[2017-07-29] MEDS: AZITHROMYCIN 500MG/NS 250 ML 250 ML IV SCH (21:02)
[2017-07-29 21:37] LABS: ANISOCYTOSIS MODERATE; EOSINOPHILS % (MANUAL) 4 % (0-7); HYPOCHROMASIA MODERATE; LYMPHOCYTES % (MANUAL) 49 % (19-48); MONOCYTES % (MANUAL) 3 % (3.4-9.0); NEUTROPHILS % (MANUAL) 44 % (40-74); PLATELET ESTIMATE ADEQUATE; RBC MORPHOLOGY COMMENT ABNORMAL
[2017-07-29 23:01] LABS: ABG PH 7.26 (7.31-7.41)
[2017-07-30] VITALS (8 sets, daily range): BP systolic 103–145; BP diastolic 30–69
[2017-07-30] MEDS ORDERED: VANCOMYCIN 1GM/NS 250 ML 250 ML IV STA (00:31)
[2017-07-30] MEDS ORDERED: CEFTRIAXONE SOD 1 GM VIAL IV SCH (01:00)
[2017-07-30] MEDS ORDERED: AZITHROMYCIN 500MG/SOD CHL 0.9% 250ML BAG IV SCH (01:00)
[2017-07-30] MEDS ORDERED: ACETAMINOPHEN 1000 MG/100 ML IV PRN (01:00)
[2017-07-30] MEDS: PROPOFOL IV EMULSION 10MG/ML 100 ML IV PRN ×6 (02:12→22:40)
[2017-07-30] MEDS: SODIUM CHLORIDE 0.9% 1000ML 1,000 ML IV SCH ×3 (02:12→17:30)
[2017-07-30 04:33] LABS: CREATINE KINASE MB 1.7 ng/mL (0.00-5.00)
[2017-07-30] MEDS ORDERED: VITAMIN B-121000 MC1 PO (04:33)
[2017-07-30] MEDS ORDERED: LIBRAX CAPSULE1 EACH PO (04:33)
[2017-07-30] MEDS ORDERED: VITAMIN D32000 UNIT PO (04:33)
[2017-07-30] MEDS ORDERED: [UNRECOGNIZED DRUG - REMARK] (04:33)
[2017-07-30] MEDS ORDERED: FOLIC ACID1 MG PO (04:33)
[2017-07-30] MEDS ORDERED: [UNRECOGNIZED DRUG - OTHER] SC (04:33)
[2017-07-30] MEDS ORDERED: C1 ESTERASE INHIBITOR 500 UNIT SC SCH (08:00)
[2017-07-30] MEDS ORDERED: [UNRECOGNIZED DRUG - OTHER] SC SCH (08:15)
[2017-07-30 08:37] LABS: CHOL/HDL RATIO 2.8 (3.0-3.6)
[2017-07-30 08:53] LABS: THYROID STIMULATING HORMONE 1.244 uIU/mL (0.350-4.940)
[2017-07-30] MEDS ORDERED: B6 PO SCH (09:00)
[2017-07-30] MEDS ORDERED: NON-FORMULARY MEDICATION (Cholecalciferol (Vitamin D3) (Vitamin D3) 2,000 UNITS) PO SCH (09:00)
[2017-07-30] MEDS: FAMOTIDINE 20 MG/2 ML VIAL IV SCH ×2 (09:10→16:40)
[2017-07-30] MEDS: CHOLECALCIFEROL 1,000 UNIT TAB PO SCH (09:10)
[2017-07-30] MEDS: ZINC SULFATE 220 MG CAP PO SCH (09:10)
[2017-07-30] MEDS: FOLIC ACID 1 MG TAB PO SCH (09:10)
[2017-07-30] MEDS: PYRIDOXINE HCL 50 MG TAB PO SCH ×2 (09:10→17:30)
--- NOTE | 2017-07-30 09:15 | History and Physical ---
PRIMARY CARE PHYSICIAN: At [facility]. CHIEF COMPLAINT: Shortness of breath. HISTORY OF PRESENT ILLNESS: This is a 67-year-old woman who was recently admitted with COPD exacerbation, now readmitted for worsening shortness of breath. Here, she had to be intubated in the emergency room. Per the , he does not smoke, but does not smoke around the patient. He states that the patient has not smoked. He states that this problem is due to the change in weather. PAST MEDICAL HISTORY: COPD, hyperlipidemia, hypertension, GERD, myelodysplastic syndrome, acute kidney injury, moderate to severe, anemia, status post blood transfusion, urinary tract infection, physical deconditioning. PAST SURGICAL HISTORY: Tubal ligation, , pneumothorax, management by chest tube, cholecystectomy. ALLERGIES: PER ELECTRONIC MEDICAL RECORD. FAMILY HISTORY: Hypertension and diabetes. SOCIAL HISTORY: Patient is . Quit cigarettes 3 years ago. continues to smoke. MEDICATIONS: Per electronic medical record. REVIEW OF SYSTEMS: Unobtainable. PHYSICAL EXAMINATION VITAL SIGNS: Have been reviewed. GENERAL: A tired-appearing woman resting in bed intubated. HEENT: ET tube in place. CARDIOVASCULAR: Normal S1 and S2. LUNGS: She has reduced breath sounds throughout. ABDOMEN: Soft, nontender and nondistended. EXTREMITIES: No edema. SKIN: Dry. PSYCHIATRIC: Unable to assess. NEUROLOGIC: She opens her eyes. Moves extremities. LABS: Reviewed. MEDICATIONS: Reviewed. ASSESSMENT AND PLAN: This is a 67-year-old woman with: 1. Acute exacerbation of chronic obstructive pulmonary disease: Patient is intubated. Will continue to taper with steroids, antibiotics. Will obtain a sputum culture. Pulmonary consultation. 2. Acute respiratory failure: She is intubated. Pulmonary on board. Will obtain a sputum culture as noted above. 3. Hypertension: Restart home medications. Treat as appropriate. 4. Myelodysplastic syndrome: Dr. Tdod on board. 5. Hyperglycemia: Glucose is 146. Patient is overweight. Body mass index is 25.6. Will screen for diabetes. Obtain a lipid panel. Will also obtain a TSH. 6. Elevated BNP of 139: Could this patient have congestive heart failure. Will obtain a 2-D echocardiogram to evaluate. 7. Prophylaxis: Will use Lovenox and Pepcid. 8. Disposition: Obtain echocardiogram. Consult Dr. Todd. Restart vitamins which the patient considers are important for treatment of this patient. Therefore, will resume vitamin B12, C1 esterase inhibitor, B6, D3, and zinc. Critical care time more than 35 minutes. Job#: [id number] DEANNA
--- NOTE | 2017-07-30 11:44 | Consultation ---
DATE OF CONSULTATION: July 30, 2017 ATTENDING DOCTOR: Dr. Maradiaga. REASON OF CONSULTATION: Myelodysplastic syndrome. HPI: She is a 66-year-old female with a history of COPD, GERD, hypertension, myelodysplastic syndrome, currently following Dr. Lux at [facility]. She has been on Aranesp. She gets Aranesp if hemoglobin drops below 12 and hematocrit drops below 36. She has recent hospital admission with worsening shortness of breath for COPD exacerbation. At that admission, she did not require any blood transfusion or Aranesp treatment. She is currently in the hospital with worsening shortness of breath, required intubation. Her hemoglobin is 10 at admission. She is intubated. Family is not present at interview. Mostly history obtained from medical chart and nurse. Currently, no evidence of any bleeding. Patient's platelets and white cell count are stable. PAST MEDICAL HISTORY: COPD, GERD, hypertension, hyperlipidemia, and MDS. ALLERGIES: CODEINE. MEDICATIONS: List reviewed. SOCIAL HISTORY: She lives with family. She is a former smoker, stopped smoking almost 3 years ago. She used to smoke 1 pack a day. No alcohol or drug. FAMILY HISTORY: Reviewed. Positive for hypertension and diabetes. REVIEW OF SYSTEMS: Patient currently intubated, could not get. PHYSICAL EXAMINATION GENERAL: Patient intubated and sedated. HEENT: Normocephalic, atraumatic. Sclerae pink. Conjunctivae clear. NECK: Supple. CHEST: Clear to auscultation with decreased breath sounds in the bases. CARDIOVASCULAR: Regular rate and rhythm. ABDOMEN: Soft, nontender. EXTREMITIES: No clubbing, cyanosis, or edema. 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 SKIN: Intact. MUSCULOSKELETAL: Normal inspection. LABS AND IMAGING: Reviewed. ASSESSMENT AND PLAN 1. Patient with history of multiple medical conditions, include chronic obstructive pulmonary disease, admitted with chronic obstructive pulmonary disease exacerbation, required intubation. Patient currently following primary care physician, on treatment. Recommendation, continue current care. 2. Anemia. Patient has myelodysplastic syndrome, following Dr. Rashad Lux. Discussed case in detail with Dr. Lux. Patient has been requiring Aranesp. Current hemoglobin is 10. She is due for next dose 2 days later. Recommendation to followup CBC. 3. Avoid frequent blood draws. 4. Will continue remaining care. 5. Hypertension. Current blood pressure is controlled. Job#: [id number] GERMAINE
[2017-07-30 13:00] LABS: CREATINE KINASE MB 1.5 ng/mL (0.00-5.00)
--- NOTE | 2017-07-30 13:07 | Discharge Summary ---
NO DICTATION, length 0 minutes 2 seconds. ANJELICA ROBLES MD Job#: [id number] EV
--- NOTE | 2017-07-30 13:55 | Consultation ---
DATE OF CONSULTATION: July 30, 2017 PULMONARY/CRITICAL CARE MEDICINE CONSULT REFERRING PHYSICIAN: Dr. Maradiaga. REASON FOR REFERRAL: Acute respiratory failure. HISTORY: Ms. Pan is a pleasant 67-year-old female with acute respiratory failure. Patient with some smoking history and was given diagnosis of COPD. Patient was intubated once 2 years ago with pneumonia. Otherwise, she is functional totally. She has been hindered recently by a blood dyscrasia and by angioedema episodes that mainly affect her abdomen. Patient was hospitalized for COPD exacerbation about 3 weeks previously. Patient was in her usual state of health. For 1 day, she had onset of symptoms. There was no known inciting factor except that the weather changed per the . This caused her to have a lot of shortness of breath. She came to the emergency room. Patient was immediately seen to be in rapid distress. She was immediately intubated, put on the ventilator. I am consulted. Chest x-ray, for the most part, shows clear lungs. PAST MEDICAL HISTORY: Recurrent hives, ?chronic urticaria. Hereditary angioedema, recent diagnosis. COPD. Hyperlipidemia. Hypertension. GERD. Myelodysplastic syndrome. Moderate to severe anemia. Some physical deconditioning. PAST SURGICAL HISTORY: Tubal ligation, , pneumothorax with management with a chest tube, cholecystectomy. MEDICATIONS: Medication list reviewed per electronic record. Patient is on erythropoietin-stimulating agents. Patient is getting intermittent medicines for hereditary angioedema, reportedly. Patient is on antihistamines. Patient was on Advair and Spiriva, although this was changed recently. Other medicines per record. ALLERGIES: CODEINE. PAST SOCIAL HISTORY: Patient was born in [place]. No alcohol, no drugs. Patient smoked for about 20 years' duration at 1/2 pack per day and was never a heavy smoker. Patient quit smoking 3 years ago. No drugs, no alcohol. FAMILY HISTORY: Noncontributory to this. REVIEW OF SYSTEMS: Cannot get, as she is intubated. PHYSICAL EXAMINATION VITAL SIGNS: Afebrile. Vital signs noted per electronic record. GENERAL: No distress on sedation on ventilator. HEENT: Normocephalic, atraumatic. NECK: Supple. Throat midline. LUNGS: Bilateral air entry, limited due to limited effort. Patient with rare rhonchi. CARDIOVASCULAR: S1, S2. No murmurs, rubs or gallops. ABDOMINAL: Soft, nontender. EXTREMITIES: No clubbing, no cyanosis. There is no edema. INTEGUMENT: No rash, no purpura. LABORATORIES: Labs reviewed per electronic record. Include 4.2 potassium, 0.8 creatinine, 25 bicarbonate; 60 white count, 36 hematocrit, 361 platelets. IMPRESSION AND PLAN 1. Acute respiratory failure, intubated. 2. Reported chronic obstructive pulmonary disease, treated exacerbation. 3. History of hereditary angioedema, late onset per . No high evidence at this time of an ENT episode at this presentation. 4. Chronic hives, possible chronic urticaria versus other condition. No preceding history of definite allergies nor asthma. 5. Myelodysplastic syndrome. 6. Serum leukocytosis, 40%. Presumptive immunosuppressed state. 7. Weakness. 8. Reported gastroesophageal reflux disease, hypertension, hyperlipidemia, chronic anemia, physical deconditioning. At this time, we wish to check IgE level. Furthermore, we want to check serum antibodies in recurrence of pneumonia reportedly in the past. Furthermore, treatment for possible COPD. We will order a CT angiogram on the lungs to assess what is going on. Consideration for bronchoscopy with bronchial biopsy to at least look for sarcoidosis, although it would be hard to do distal lung biopsies due to the pneumothorax risk at this time. Will need more history once the patient is extubated. Will follow along closely. Continue current care plan. Greater than 30 minutes of direct care on this date, multiple coordination. Follow along closely. Thank you very much, Dr. Maradiaga, for this consult. I remain available for questions, so please call for any need. Job#: [id number] [place]
[2017-07-30] MEDS ORDERED: SUCCINYLCHOLINE CHLORIDE 20 MG/ML 10ML VIAL ONE (18:42)
[2017-07-30] MEDS ORDERED: ETOMIDATE 2 MG/ML 10 ML INJ IV ONE (18:42)
[2017-07-30] MEDS ORDERED: PANTOPRAZOLE SOD 40 MG TABEC PO SCH (21:00)
[2017-07-30] MEDS ORDERED: SODIUM CHLORIDE 0.9% 50ML 50 ML ONE (22:52)
[2017-07-30] MEDS ORDERED: IOPAMIDOL 370 MG/ML 200 ML INFUS..BTL INJ ONE (22:52)
--- NOTE | 2017-07-30 23:28 | Diagnostic Imaging Report ---
EXAM: CT CHEST W DATE: 07/30/2017 11:28 AM INDICATION: Shortness of breath COMPARISON: None TECHNIQUE: Multidetector CT scanning of the chest was performed. Coronal and sagittal multiplanar reformations were obtained. IV Contrast: 80 ml Isovue 370 FINDINGS: ET tube is approximately 2.5 cm above the eugene. NG tube extends subdiaphragmatically, seen within the stomach. LUNGS AND PLEURA: Small right and trace left pleural effusions. There is mostly bibasilar atelectasis or scarring. Subtle upper lung groundglass and smooth septal thickening. HEART, MEDIASTINUM, VESSELS: The heart is normal in size without pericardial effusion. Mild scattered aortic and coronary calcification. Main pulmonary artery is not enlarged. No evidence of acute pulmonary artery embolism. UPPER ABDOMEN: Cholecystectomy. 1.2 cm left adrenal nodule is of low attenuation (8.2) likely a benign adenoma. MUSCULOSKELETAL: Prior T12 and L2 vertebral plasty. Mild anterior wedging/compression deformities of L1, T11 and T5. IMPRESSION: 1. No evidence of acute pulmonary artery embolism. 2. Findings of mild edema with scattered atelectasis and trace effusions. Signed by: Dr Yenny Solano MD on 07/30/2017 11:25 PM
[2017-07-30] MEDS: AZITHROMYCIN 500MG/NS 250 ML 250 ML IV SCH (23:32)
[2017-07-30] MEDS: CEFTRIAXONE SOD 1 GM VIAL IV SCH (23:32)
[2017-07-30] MEDS: CYANOCOBALAMIN 1,000 MCG TAB PO SCH (23:32)
[2017-07-31] VITALS (57 sets, daily range): BP systolic 113–173; BP diastolic 29–102
[2017-07-31] MEDS: SODIUM CHLORIDE 0.9% 1000ML 1,000 ML IV SCH ×2 (01:15→09:51)
[2017-07-31] MEDS: PROPOFOL IV EMULSION 10MG/ML 100 ML IV PRN ×2 (01:55→08:30)
[2017-07-31 06:04] LABS: BASOPHILS % 0.2 % (0.0-1.0); EOSINOPHILS # (AUTO) 0.1 (0.0-0.4); EOSINOPHILS % 2.2 % (0.0-6.0); HEMATOCRIT 27.8 % (34.2-44.1); HEMOGLOBIN 8.4 g/dL (12.0-16.0); LYMPHOCYTES # (AUTO) 1.7 (1.0-3.2); LYMPHOCYTES % 29.5 % (18.0-39.1); MEAN CORPUSCULAR HEMOGLOBIN 28.7 pg (28-32); MEAN CORPUSCULAR HGB CONC 30.2 g/dL (31-35); MEAN CORPUSCULAR VOLUME 94.9 fL (81-99); MONOCYTES # (AUTO) 0.3 (0.2-0.8); MONOCYTES % 5.5 % (4.4-11.3); NEUTROPHILS # (AUTO) 3.6 (2.1-6.9); NEUTROPHILS % 62.1 % (38.7-80.0); PLATELET COUNT 181 x10e3/uL (140-360); RED BLOOD COUNT 2.93 x10e6/uL (3.6-5.1); RED CELL DISTRIBUTION WIDTH 27.7 % (11.7-14.4)
--- NOTE | 2017-07-31 06:21 | Diagnostic Imaging Report ---
CHEST SINGLE (PORTABLE), 07/31/2017 5:00 AM Technique: CHEST SINGLE (PORTABLE) Comparison: 07/29/2017 Clinical history: COPD Findings: See Impression Impression: 1. Lines/Tubes: ET tube approximately 3 cm above the eugene. Subdiaphragmatic NG tube. 2. Stable cardiomediastinal silhouette. 3. Mild edema with left basilar/lingular atelectasis. Signed by: Dr Yenny Solano MD on 07/31/2017 6:18 AM
[2017-07-31 06:23] LABS: ANION GAP 12.3 mmol/L (8-16); BLOOD UREA NITROGEN 16 mg/dL (7-26); BUN/CREATININE RATIO 24 (6-25); CARBON DIOXIDE 21 mmol/L (22-29); CHLORIDE 118 mmol/L (98-107); CREATININE, SERUM 0.67 mg/dL (0.57-1.11); EST GLOMERULAR FILTRATION RATE > 60 ML/MIN (60-); GLUCOSE 77 mg/dL (74-118); SODIUM 148 mmol/L (136-145)
[2017-07-31 06:25] LABS: CALCIUM 6.7 mg/dL (8.4-10.2); POTASSIUM 3.3 mmol/L (3.5-5.1)
[2017-07-31] MEDS ORDERED: POTASSIUM CHLORIDE 20MEQ/100ML 100 ML IV STA (07:21)
[2017-07-31] MEDS ORDERED: CALCIUM GLUCONATE 10% INJ 9.3 MEQ in SODIUM CHLORIDE 0.9% 100 ML 100 ML IV ONE ×4 (07:30)
--- NOTE | 2017-07-31 07:50 | Progress Note ---
DATE: July 31, 2017 TIME: 6 a.m. OVERNIGHT: No events. Remains intubated. PHYSICAL EXAMINATION VITAL SIGNS: Reviewed. GENERAL: A tired-appearing woman resting in bed. HEENT: ET tube in place. CARDIOVASCULAR: Normal S1 and S2. LUNGS: Reduced breath sounds throughout. ABDOMEN: Soft, nontender and nondistended. EXTREMITIES: No edema. SKIN: Dry. PSYCHIATRIC: Unable to assess. NEUROLOGICAL: Sedated. LABS: Reviewed. MEDICATIONS: Reviewed. ASSESSMENT AND PLAN: A 67-year-old woman with: 1. Acute exacerbation of chronic obstructive pulmonary disease: Continue vent support. Spontaneous breathing trial. 2. Acute respiratory failure: Patient is intubated. Defer to pulmonary service. 3. Hypertension: Continue medication regimen. 4. Myelodysplastic syndrome: Dr. Todd on board managing. 5. Hyperglycemia: Follow up lipid panel. 6. Elevated BNP: Follow up 2-D echocardiogram. 7. Prophylaxis: Lovenox and Pepcid. 8. Disposition: Patient's leukocytosis has resolved. Continue current management. Replace potassium. There is some hypernatremia and hypocalcemia. Replace the calcium. Follow immunologic studies. Flu screen was negative. 9. Critical care time more than 35 minutes. Job#: [id number] DEANNA
[2017-07-31] MEDS ORDERED: EPINEPHRINE HCL INJ 1 MG/ML AMP ONE (07:54)
[2017-07-31] MEDS ORDERED: LIDOCAINE HCL 4% 50 ML BTL ONE (07:54)
[2017-07-31] MEDS ORDERED: OXYMETAZOLINE HCL 0.05% NAS 1 SPRAY BTL ONE (07:54)
[2017-07-31] MEDS ORDERED: LIDOCAINE JELLY 2% 10ML URO-JET ONE (08:24)
[2017-07-31 08:29] LABS: EOSINOPHILS % (MANUAL) 1 % (0-7); LYMPHOCYTES % (MANUAL) 35 % (19-48); MONOCYTES % (MANUAL) 5 % (3.4-9.0); NEUTROPHILS % (MANUAL) 59 % (40-74)
[2017-07-31 08:32] LABS: PLATELET ESTIMATE ADEQUATE; PLATELET MORPHOLOGY COMMENT FEW LARGE; RBC MORPHOLOGY COMMENT ABNORMAL
[2017-07-31 08:33] LABS: ANISOCYTOSIS MODE; HYPOCHROMASIA SLIGHT; POIKILOCYTOSIS MODERATE
[2017-07-31] MEDS ORDERED: MIDAZOLAM HCL 2 MG/2 ML VIAL ONE (09:14)
[2017-07-31] MEDS: FOLIC ACID 1 MG TAB PO SCH (09:51)
[2017-07-31] MEDS: ZINC SULFATE 220 MG CAP PO SCH (09:51)
[2017-07-31] MEDS: FAMOTIDINE 20 MG/2 ML VIAL IV SCH ×2 (09:51→17:59)
[2017-07-31] MEDS: PYRIDOXINE HCL 50 MG TAB PO SCH ×2 (09:51→17:59)
[2017-07-31] MEDS: CHOLECALCIFEROL 1,000 UNIT TAB PO SCH (09:51)
--- NOTE | 2017-07-31 10:55 | Progress Note ---
DATE: Patient seen and examined today. She is in the intensive care unit. Currently receiving bronchoscopy. Patient had CBC this morning. Hemoglobin dropped. No acute bleeding noted. PHYSICAL EXAMINATION HEENT: Normocephalic, atraumatic. Sclerae pale. Conjunctivae clear. NECK: Supple. CHEST: Decreased breath sounds at bases. CARDIOVASCULAR: Regular rate and rhythm. ABDOMEN: Soft. EXTREMITIES: No edema. LABORATORY: Remaining reviewed. ASSESSMENT AND PLAN: 1. Patient with a history of multiple medical conditions. Currently in hospital with chronic obstructive pulmonary disease exacerbation, resulting with respiratory failure. 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 She is currently receiving bronchoscopy. 2. She also has worsening anemia. She had workup in past. Consider the myelodysplastic syndrome. Her current hemoglobin dropped to the 8. 3. She is scheduled for Aranesp tomorrow. 4. At current, continue current treatment. Try to avoid frequent blood drawn. 5. Will monitor patient closely. Care quality discussed with primary oncologist, Dr. Lux, yesterday. Will follow patient. Job#: [id number] [place]
[2017-07-31] MEDS ORDERED: POTASSIUM CHLORIDE 20MEQ/15ML UDC NG STA (11:13)
[2017-07-31] MEDS ORDERED: FUROSEMIDE INJ 10 MG/ML 4 ML VIAL IV ONE ×2 (11:15→18:00)
[2017-07-31 11:46] LABS: BODY FLUID COLOR YELLOW
[2017-07-31 11:47] LABS: BODY FLUID APPEARANCE SL.CLOUDY; BODY FLUID TYPE BRONCH LAVAGE
[2017-07-31 11:49] LABS: RBC,BODY FLUID 150 cells/uL; WBC,BODY FLUID 47 cells/uL
[2017-07-31] MEDS: METHYLPREDNISOLONE SOD SUCC 125 MG/2ML VIAL IV SCH ×3 (12:37→21:48)
--- NOTE | 2017-07-31 12:40 | Progress Note ---
DATE: July 31, 2017 PULMONARY MEDICINE PROGRESS NOTE SUBJECTIVE: Ms. Pan was seen and examined at bedside. She continues to have intubated state. Bronchoscopy was able to be done in the morning. No unexpected findings CT chest was also reviewed from yesterday, showing the appearance of bilateral upper lobe predominant ground-glass infiltrates and very small pleural effusion, unclear if this is more cardiac or pulmonary. After serial evaluation after sedation wore off of the patient, we gave the patient a trial of extubation. I discussed with the family. She was given BiPAP to try to salvage and wean off. Patient with borderline respiratory mechanics but felt to have a small airway but felt to be small and easy to handle if any emergencies arose. REVIEW OF SYSTEMS: No headaches, no rash. OBJECTIVE VITAL SIGNS: Patient is afebrile. Vital signs noted per electronic record. Heart rate is high, often from 110s to 150s but appears sinus on telemetry. HEENT: Normocephalic, atraumatic. LUNGS: Bilateral air entry is mildly decreased. Rare wheezes, a few rhonchi. CARDIOVASCULAR: S1 and S2. No murmurs, rubs or gallops. LABS: Potassium 3.3, sodium 148, BUN 16, creatinine 0.67. White count 5.8, hematocrit 28. IMPRESSION AND PLAN 1. Acute respiratory failure, intubated and then extubated. 2. Treat as possible chronic obstructive pulmonary disease with exacerbation. 3. Bilateral pneumonitis in an immunosuppressed patient. 4. Possible fluid overload, preliminary ejection fraction 45% to 50% per echo. 5. Tachycardia, sinus. 6. Hypokalemia. 7. History of hereditary angioedema, late onset in life. 8. History of myelodysplastic syndrome. Continue current care. As discussed, we extubated the patient. Continue to wean off BiPAP. She is a moderate risk for reintubation, but we will escalate care at this time. Continue steroids. More diuretics. Decrease the IV fluid intake. Hope that the patient improves. Will follow up the bronchoscopic studies. Do 12-lead EKG and will follow the final echo report. Thank you very much. Greater than 30 minutes of direct care on this date, multiple evaluations in supervision of care. Job#: [id number] [place]
--- NOTE | 2017-07-31 13:04 | Operative Report ---
DATE OF PROCEDURE: July 31, 2017 PROCEDURE: Flexible fiberoptic bronchoscopy with bronchial biopsy. INDICATIONS: Immunosuppressed state, pneumonitis. CONSENT: Informed consent from . ANESTHESIA: Versed 4 mg IV was given. FINDINGS: Via the 7.5 endotracheal tube, the fiberoptic bronchoscope was inserted into the airways. The patient at this assessment had no endobronchial lesions and normal tracheobronchial airways and airway configuration. The patient eventually had washes done when mild amounts of purulence were noted. The bronchoscope was wedged into the right upper lobe anterior segment, and bronchoalveolar lavage was performed in this area. Specimens were sent. Thereafter, some endobronchial biopsies were taken of the right upper lobe eugene area. After hemostasis was noted to be achieved, the procedure was terminated. The patient left to recover on the ventilator. COMPLICATIONS: None. ESTIMATED BLOOD LOSS: Less than 1 mL. IMPRESSION: Mild airway purulence, status post washing, bronchoalveolar lavage and bronchial biopsies. RECOMMENDATIONS: Follow up results of bronchoscopy. Add additional assessments due to the patient's immunosuppressed state. Will follow along closely. Job#: [id number]
[2017-07-31 13:24] LABS: EOSINOPHILS,BODY FLUID 1 %; LYMPHOCYTES,BODY FLUID 76 %; MONO/MACROPHG,BODY FLUID 1 %; NEUTROPHILS,BODY FLUID 20 %; OTHER CELLS,BODY FLUID 2 %
[2017-07-31] MEDS ORDERED: POTASSIUM CHLORIDE 20MEQ/100ML 100 ML IV ONE (19:30)
[2017-07-31] MEDS: AZITHROMYCIN 500MG/NS 250 ML 250 ML IV SCH (20:30)
[2017-07-31] MEDS: CEFTRIAXONE SOD 1 GM VIAL IV SCH (21:20)
[2017-07-31] MEDS: CYANOCOBALAMIN 1,000 MCG TAB PO SCH (21:20)
[2017-08-01] VITALS (32 sets, daily range): BP systolic 100–155; BP diastolic 42–76
[2017-08-01] MEDS: METHYLPREDNISOLONE SOD SUCC 125 MG/2ML VIAL IV SCH (06:00)
[2017-08-01 06:02] LABS: BASOPHILS % 0.4 % (0.0-1.0); HEMATOCRIT 31.5 % (34.2-44.1); HEMOGLOBIN 9.4 g/dL (12.0-16.0); LYMPHOCYTES % 19.5 % (18.0-39.1); MEAN CORPUSCULAR HEMOGLOBIN 28.1 pg (28-32); MEAN CORPUSCULAR HGB CONC 29.8 g/dL (31-35); MONOCYTES # (AUTO) 0.2 (0.2-0.8); MONOCYTES % 3.1 % (4.4-11.3); NEUTROPHILS # (AUTO) 3.9 (2.1-6.9); NEUTROPHILS % 76.4 % (38.7-80.0); PLATELET COUNT 220 x10e3/uL (140-360); RED BLOOD COUNT 3.35 x10e6/uL (3.6-5.1); RED CELL DISTRIBUTION WIDTH 27.5 % (11.7-14.4)
--- NOTE | 2017-08-01 06:03 | Diagnostic Imaging Report ---
CHEST SINGLE (PORTABLE), 08/01/2017 5:00 AM Technique: CHEST SINGLE (PORTABLE) Comparison: 07/30/2017 Clinical history: Congestive heart failure Findings: See Impression Impression: 1. Lines/Tubes: Removal of ET tube and NG tube 2. Stable cardiomediastinal silhouette. 3. Mildly improved edema. Persistent left basilar/lingular atelectasis. Signed by: Dr Yenny Solano MD on 08/01/2017 5:59 AM
[2017-08-01 06:24] LABS: ANION GAP 13.7 mmol/L (8-16); BLOOD UREA NITROGEN 23 mg/dL (7-26); BUN/CREATININE RATIO 29 (6-25); CALCIUM 7.3 mg/dL (8.4-10.2); CARBON DIOXIDE 27 mmol/L (22-29); CHLORIDE 111 mmol/L (98-107); EST GLOMERULAR FILTRATION RATE > 60 ML/MIN (60-); GLUCOSE 121 mg/dL (74-118); MAGNESIUM 1.4 MG/DL (1.3-2.1); POTASSIUM 4.7 mmol/L (3.5-5.1); SODIUM 147 mmol/L (136-145)
--- NOTE | 2017-08-01 07:17 | Progress Note ---
DATE: August 01, 2017 TIME: 5:30 a.m. OVERNIGHT: Patient was extubated yesterday morning to BiPAP. Currently, on nasal cannula. Denies any chest pain. Mild shortness of breath. REVIEW OF SYSTEMS: Denies any chest pain. PHYSICAL EXAMINATION VITAL SIGNS: Reviewed. GENERAL: A tired-appearing woman resting in bed. HEENT: Anicteric. CARDIOVASCULAR: Normal S1 and S2. LUNGS: Moderate air movement. No wheezing. ABDOMEN: Soft, nontender and nondistended. EXTREMITIES: No edema or calf tenderness. NEUROLOGICAL: Alert and oriented times 3. Moving all extremities. LABS: Reviewed. MEDICATIONS: Reviewed. ASSESSMENT: This is a 67-year-old woman with: 1. Acute exacerbation of chronic obstructive pulmonary disease. 2. Acute respiratory failure. 3. Hypertension. 4. Myelodysplastic syndrome. 5. Hyperglycemia. 6. Elevated BNP. PLAN 1. Continue oxygen support in the ICU. Patient is doing well. 2. Follow up echocardiogram. 3. Initiate physical therapy. 4. Follow up labs this morning. 5. Follow up hypernatremia and hypokalemia. Also, follow up calcium level. 6. Follow up alpha-1 antitrypsin level. 7. Follow up immunologic studies and serology. 8. Follow up bronchoscopy biopsy. 9. Influenza screen was negative. 10. Continue steroids, ceftriaxone and azithromycin. 11. Critical care time more than 35 minutes. Job#: [id number] [place]
[2017-08-01] MEDS: SODIUM CHLORIDE 0.9% 1000ML 1,000 ML IV SCH (08:16)
[2017-08-01] MEDS ORDERED: DARBEPOETIN ALFA SC SCH (09:00)
[2017-08-01] MEDS: CHOLECALCIFEROL 1,000 UNIT TAB PO SCH (09:00)
[2017-08-01] MEDS: FOLIC ACID 1 MG TAB PO SCH (09:00)
[2017-08-01] MEDS: PYRIDOXINE HCL 50 MG TAB PO SCH ×2 (09:00→17:21)
[2017-08-01] MEDS: FAMOTIDINE 20 MG/2 ML VIAL IV SCH ×2 (09:00→17:21)
[2017-08-01] MEDS ORDERED: [UNRECOGNIZED DRUG - OTHER] SC SCH (09:00)
[2017-08-01] MEDS: ZINC SULFATE 220 MG CAP PO SCH (09:00)
[2017-08-01] MEDS ORDERED: DARBEPOETIN ALFA SQ ONE (10:00)
--- NOTE | 2017-08-01 11:34 | Progress Note ---
DATE: Patient seen and examined today. Patient appears comfortable. She is extubated. Clinically doing better. Denies any worsened event. Current hemoglobin 9. She is scheduled to receive Aranesp. PHYSICAL EXAMINATION GENERAL: Alert, awake, communicative. HEENT: Normocephalic, atraumatic. Sclerae pale. Conjunctivae clear. NECK: Supple. LUNGS: Clear to auscultation. CARDIOVASCULAR: Regular rate and rhythm. EXTREMITIES: No edema. LABORATORY AND IMAGING: Reviewed. ASSESSMENT AND PLAN: 1. Patient with a history of chronic obstructive pulmonary disease. Admitted with chronic obstructive pulmonary disease exacerbation, respiratory failure. Required intubation. Clinical condition is improving. 2. She also has anemia. Workup in past shows myelodysplastic syndrome. She is currently following Dr. Lux. Patient's current hemoglobin is 9. Patient is scheduled to receive Aranesp. I have detailed family meeting with today. Talked about her condition. All questions were answered, best of my knowledge. There was some confusion; it got cleared. Dr. Lux was also informed about patient condition. At this point, will continue remaining care. Will follow patient closely. Job#: [id number] [place]
--- NOTE | 2017-08-01 14:20 | Progress Note ---
DATE: August 01, 2017 PULMONARY MEDICINE PROGRESS NOTE SUBJECTIVE: Ms. Pan was seen and examined at bedside. She was weaned successfully from the BiPAP yesterday. Furthermore, NG tube was able to be removed. Today she was able to walk with therapy in the hallway, making 2 laps in the ICU. The patient furthermore was sitting up in a chair for 1 hour. The patient is feeling bad, except her breathing is much better. Had 0.7 L in, 3.6 L out on I's and O's recorded. REVIEW OF SYSTEMS: No headaches, no rash. OBJECTIVE VITAL SIGNS: Afebrile. Vital signs noted per electronic record. GENERAL: No acute distress. Alert and calm and more comfortable today. HEENT: Normocephalic, atraumatic. NECK: Supple. Throat is midline. LUNGS: Bilateral air entry, a few rhonchi. CARDIOVASCULAR: S1 and S2. No murmurs, rubs or gallops. ABDOMEN: Soft, nontender. EXTREMITIES: No clubbing. No cyanosis. No edema. INTEGUMENT: No rash. No purpura. LABS: 4.7 potassium, 147 sodium, 27 bicarbonate, 22 BUN, 0.8 creatinine, 5.1 white count, 31 hematocrit. IgG level 491. IgA was 76. IgM level was normal. IgE level is pending. IMPRESSION AND PLAN 1. Acute respiratory failure, extubated. 2. Pneumonia, acute. 3. Chronic obstructive pulmonary disease with exacerbation, presumptive. 4. History of recurrent hives/urticaria, not otherwise specified. 5. History of hereditary angioedema per report. 6. Myelodysplastic syndrome. 7. Weakness. 8. Immunosuppressed state, multifactorial due to myelodysplastic syndrome and the low immunoglobulin levels. Continue current therapy at this time. Mobilize the patient. Discontinue the Andrews. Will wean steroids down. She got some diuretic yesterday, and we will follow her up today without further doses for now. Repeat blood work in the morning. Follow up results of bronchoscopy. Job#: [id number]
[2017-08-01] MEDS: ENOXAPARIN SOD INJ 40 MG/0.4 ML SYR SC SCH (17:21)
[2017-08-01] MEDS: ALBUTEROL/IPRATROPIUM 3 ML NEB NEB SCH (20:05)
[2017-08-01] MEDS: AZITHROMYCIN 500MG/NS 250 ML 250 ML IV SCH (20:30)
[2017-08-01] MEDS: CEFTRIAXONE SOD 1 GM VIAL IV SCH (21:00)
[2017-08-01] MEDS: CYANOCOBALAMIN 1,000 MCG TAB PO SCH (21:00)
[2017-08-01] MEDS ORDERED: SODIUM CHLORIDE 0.9% 250ML 250 ML ONE (23:49)
[2017-08-02] VITALS (9 sets, daily range): BP systolic 117–142; BP diastolic 46–71
[2017-08-02] MEDS: ALBUTEROL/IPRATROPIUM 3 ML NEB NEB SCH ×4 (01:02→19:17)
--- NOTE | 2017-08-02 08:51 | Progress Note ---
DATE: August 02, 2017 SUBJECTIVE: Patient is seen and examined today. Patient appeared comfortable. No worsening event noted. She is still short of breath, but no other event noted. PHYSICAL EXAMINATION: GENERAL: Alert, awake, communicative. HEENT: Normocephalic, atraumatic. Sclerae pink. Conjunctivae clear. NECK: Supple. CHEST: Decreased breath sounds at the bases. CARDIOVASCULAR: Regular rate and rhythm. EXTREMITIES: No edema. LABS AND IMAGING: . ASSESSMENT AND PLAN: Patient with history of chronic obstructive pulmonary disease, presented with acute respiratory failure. She has myelodysplastic syndrome, currently on Procrit treatment. Last hemoglobin 9.4, she received Aranesp yesterday, clinically doing better. RECOMMENDATION: To follow CBC on Friday morning. Continue current care. Will monitor patient closely. Job#: [id number]
[2017-08-02] MEDS: ZINC SULFATE 220 MG CAP PO SCH (09:14)
[2017-08-02] MEDS: PREDNISONE 20 MG TAB PO SCH (09:14)
[2017-08-02] MEDS: CHOLECALCIFEROL 1,000 UNIT TAB PO SCH (09:14)
[2017-08-02] MEDS: PYRIDOXINE HCL 50 MG TAB PO SCH ×2 (09:14→16:36)
[2017-08-02] MEDS: FOLIC ACID 1 MG TAB PO SCH (09:14)
[2017-08-02] MEDS: FAMOTIDINE 20 MG/2 ML VIAL IV SCH ×2 (09:14→16:36)
[2017-08-02] MEDS: METOPROLOL TARTRATE 25 MG TAB PO SCH ×2 (10:05→16:36)
[2017-08-02] MEDS: ONDANSETRON HCL INJ 2 MG/ML VIAL IV PRN (10:57)
--- NOTE | 2017-08-02 11:44 | Progress Note ---
DATE: August 02, 2017 TIME: 11 a.m. OVERNIGHT: Some shortness of breath. REVIEW OF SYSTEMS: Denies any dizziness. PHYSICAL EXAMINATION VITAL SIGNS: Reviewed. GENERAL: A tired-appearing woman resting in bed. HEENT: Anicteric. CARDIOVASCULAR: Normal S1 and S2. LUNGS: Reduced breath sounds throughout, but moderate air movement. ABDOMEN: Soft, nontender and nondistended. She has a ventral hernia. EXTREMITIES: No edema. SKIN: Dry. PSYCHIATRIC: Flat affect. NEUROLOGICAL: Alert and oriented times 3. LABS: Reviewed. MEDICATIONS: Reviewed. ASSESSMENT: A 67-year-old woman with: 1. Acute exacerbation of chronic obstructive pulmonary disease. 2. Acute respiratory failure. 3. Hypertension. 4. Myelodysplastic syndrome. 5. Hyperglycemia. 6. Elevated BNP. 7. Fungal pneumonia with yeast. PLAN 1. Continue oxygen support. 2. Continue physical therapy. 3. Left ventricular ejection fraction 50% to 55%. 4. Hemoglobin A1c 4.1, LDL 73. 5. Continue to follow I's and O's. Give 20 mg IV Lasix daily and check labs now. 6. Obtain chest x-ray. 7. Influenza screening was negative. 8. Continue ceftriaxone and azithromycin. 9. Fungal pneumonia with yeast. Bronchial washings positive for yeast. Initiate IV Diflucan. Job#: [id number] DEANNA
[2017-08-02] MEDS: FLUCONAZOLE 100 MG/NS 50 ML 50 ML IV SCH (13:15)
[2017-08-02] MEDS ORDERED: SODIUM CHLORIDE 0.9% 250ML 250 ML ONE (13:18)
[2017-08-02 13:22] LABS: BASOPHILS % 0.3 % (0.0-1.0); EOSINOPHILS % 0.1 % (0.0-6.0); HEMATOCRIT 30.9 % (34.2-44.1); HEMOGLOBIN 9.3 g/dL (12.0-16.0); LYMPHOCYTES # (AUTO) 0.9 (1.0-3.2); LYMPHOCYTES % 8.9 % (18.0-39.1); MEAN CORPUSCULAR HEMOGLOBIN 27.8 pg (28-32); MEAN CORPUSCULAR HGB CONC 30.1 g/dL (31-35); MEAN CORPUSCULAR VOLUME 92.5 fL (81-99); MONOCYTES # (AUTO) 0.4 (0.2-0.8); MONOCYTES % 4.1 % (4.4-11.3); NEUTROPHILS # (AUTO) 8.3 (2.1-6.9); NEUTROPHILS % 85.5 % (38.7-80.0); PLATELET COUNT 252 x10e3/uL (140-360); RED BLOOD COUNT 3.34 x10e6/uL (3.6-5.1); RED CELL DISTRIBUTION WIDTH 27.3 % (11.7-14.4)
[2017-08-02 13:41] LABS: ANION GAP 10.8 mmol/L (8-16); BLOOD UREA NITROGEN 33 mg/dL (7-26); BUN/CREATININE RATIO 51 (6-25); CALCIUM 7.1 mg/dL (8.4-10.2); CARBON DIOXIDE 26 mmol/L (22-29); CHLORIDE 107 mmol/L (98-107); CREATININE, SERUM 0.65 mg/dL (0.57-1.11); EST GLOMERULAR FILTRATION RATE > 60 ML/MIN (60-); GLUCOSE 124 mg/dL (74-118); POTASSIUM 3.8 mmol/L (3.5-5.1); SODIUM 140 mmol/L (136-145)
[2017-08-02] MEDS: LORAZEPAM 0.5 MG TAB PO PRN ×2 (14:30→21:01)
--- NOTE | 2017-08-02 14:40 | Diagnostic Imaging Report ---
EXAMINATION: CHEST SINGLE (PORTABLE) INDICATION: \S\f/u \[id number] \S\[id number] COMPARISON: Chest radiograph from 08/01/2017 FINDINGS: AP view TUBES and LINES: None. LUNGS: Lungs are well inflated. Unchanged bilateral interstitial edema. Bibasilar atelectasis, stable. PLEURA: No pleural effusion or pneumothorax. HEART AND MEDIASTINUM: The cardiomediastinal silhouette is unremarkable.. BONES AND SOFT TISSUES: No acute osseous lesion. Soft tissues are unremarkable. UPPER ABDOMEN: No free air under the diaphragm. IMPRESSION: Stable bilateral interstitial edema. Signed by: Dr. Shaina Vivas M.D. on 08/02/2017 2:36 PM
[2017-08-02] MEDS ORDERED: METHYLPREDNISOLONE SOD SUCC 40 MG/ML VIAL IV ONE (15:00)
[2017-08-02] MEDS ORDERED: FUROSEMIDE INJ 10 MG/ML 2 ML VIAL IV ONE (15:00)
[2017-08-02 15:37] LABS: ANISOCYTOSIS SLIGHT; MICROCYTOSIS SLIGHT; PLATELET ESTIMATE ADEQUATE
[2017-08-02 15:38] LABS: PLATELET MORPHOLOGY COMMENT FEW GIANT
[2017-08-02 15:39] LABS: HYPOCHROMASIA SLIG; POLYCHROMASIA FEW; SCHISTOCYTES FEW
[2017-08-02] MEDS: ENOXAPARIN SOD INJ 40 MG/0.4 ML SYR SC SCH (16:36)
[2017-08-02] MEDS ORDERED: METOPROLOL TARTRATE 25 MG TAB PO SCH (17:00)
--- NOTE | 2017-08-02 17:50 | Progress Note ---
DATE: August 02, 2017 PULMONARY MEDICINE PROGRESS NOTE SUBJECTIVE: Ms. Pan was seen and examined at bedside. She continues to have steady progress, and 1.3 L in and 0.6 L out. Patient has worsening since yesterday evening. She was replaced on BiPAP overnight. She was getting intermittent nebulized treatments. She remains for the most part with some additional anxiety as well. Currently, on BiPAP at this time. She is not eating much per the . Patient was not able to get any physical therapy due to her respiratory distress today. REVIEW OF SYSTEMS: No bleeding. No rash. OBJECTIVE VITALS: Afebrile. Vital signs noted per electronic record. GENERAL: No acute distress. Alert and on the BiPAP. HEENT: Normocephalic and atraumatic. NECK: Supple. Throat midline. LUNGS: Bilateral air entry. Rare rhonchi. No wheezes at all that I can hear. CARDIOVASCULAR: S1 and S2. No murmurs, rubs or gallops. ABDOMEN: Soft and nontender. EXTREMITIES: No clubbing. No cyanosis. No edema. INTEGUMENT: No rash. No purpura. LABS: New labs just drawn due to the worsening, and these are pending. IMPRESSION AND PLAN 1. Acute respiratory failure, now back on BiPAP salvage. 2. Weakness. 3. Chronic obstructive pulmonary disease with exacerbation. 4. Chronic recurrent urticaria reported. 5. Myelodysplastic syndrome. 6. History of urticaria and angioedema. Continue current treatment. Will follow up the complement levels. Furthermore, the patient needs follow up with the IgE level. Recheck another chest x-ray given the worsening, and give a trial of Lasix. Will follow along closely. Add antihistamine to her clinical regimen. Will follow along closely. Job#: [id number] DEANNA
[2017-08-02] MEDS: AZITHROMYCIN 500MG/NS 250 ML 250 ML IV SCH (19:39)
[2017-08-02] MEDS: CEFTRIAXONE SOD 1 GM VIAL IV SCH (21:01)
[2017-08-02] MEDS: CYANOCOBALAMIN 1,000 MCG TAB PO SCH (21:01)
[2017-08-02 23:11] LABS: ALPHA-1-ANTITRYPSIN 200 mg/dL (90-200)
[2017-08-03] VITALS (8 sets, daily range): BP systolic 92–142; BP diastolic 45–63
[2017-08-03] MEDS: ALBUTEROL/IPRATROPIUM 3 ML NEB NEB SCH ×4 (00:55→18:45)
--- NOTE | 2017-08-03 07:55 | Diagnostic Imaging Report ---
Examination: Single AP view of the chest. COMPARISON: None. INDICATION: COPD exacerbation DISCUSSION: Lines/tubes: None. Lungs: The lungs are hyperinflated. Pulmonary venous congestion. Linear scarring/atelectasis left midlung. Pleura: There is no pleural effusion or pneumothorax. Heart and mediastinum: The heart and the mediastinum are unremarkable. Bones and soft tissues: No acute bony abnormalities. IMPRESSION: 1. No consolidative pneumonia. 2. Pulmonary venous congestion Signed by: Dr. Rj Eduardo M.D. on 08/03/2017 7:51 AM
[2017-08-03 08:37] LABS: ALANINE AMINOTRANSFERASE 13 IU/L (0-55); ALBUMIN/GLOBULIN RATIO 1.4 (0.8-2.0); ALKALINE PHOSPHATASE 52 IU/L (40-150); ANION GAP 9.7 mmol/L (8-16); BLOOD UREA NITROGEN 33 mg/dL (7-26); BUN/CREATININE RATIO 47 (6-25); CARBON DIOXIDE 29 mmol/L (22-29); CHLORIDE 105 mmol/L (98-107); EST GLOMERULAR FILTRATION RATE > 60 ML/MIN (60-); GLUCOSE 88 mg/dL (74-118); MAGNESIUM 1.5 MG/DL (1.3-2.1); POTASSIUM 3.7 mmol/L (3.5-5.1); SODIUM 140 mmol/L (136-145)
[2017-08-03] MEDS: ZINC SULFATE 220 MG CAP PO SCH (08:45)
[2017-08-03] MEDS: PREDNISONE 20 MG TAB PO SCH (08:45)
[2017-08-03] MEDS: FAMOTIDINE 20 MG/2 ML VIAL IV SCH ×2 (08:45→16:12)
[2017-08-03] MEDS: CHOLECALCIFEROL 1,000 UNIT TAB PO SCH (08:45)
[2017-08-03] MEDS: LORATADINE 10 MG TAB PO SCH (08:45)
[2017-08-03] MEDS: METOPROLOL TARTRATE 25 MG TAB PO SCH ×2 (08:45→16:12)
[2017-08-03] MEDS: FOLIC ACID 1 MG TAB PO SCH (08:45)
[2017-08-03] MEDS: FUROSEMIDE 20 MG TAB PO SCH (08:45)
[2017-08-03] MEDS: PYRIDOXINE HCL 50 MG TAB PO SCH ×2 (08:45→16:12)
[2017-08-03 09:01] LABS: CALCIUM 6.8 mg/dL (8.4-10.2)
[2017-08-03] MEDS: LORAZEPAM 0.5 MG TAB PO PRN (10:48)
[2017-08-03] MEDS ORDERED: CALCIUM GLUCONATE 10% INJ 9.3 MEQ in SODIUM CHLORIDE 0.9% 100 ML 100 ML IV ONE (11:00)
--- NOTE | 2017-08-03 11:52 | Progress Note ---
DATE: August 03, 2017 TIME: 10:30 a.m. OVERNIGHT: Feeling better. REVIEW OF SYSTEMS: Denies any dizziness. PHYSICAL EXAMINATION VITAL SIGNS: Reviewed. GENERAL: A tired-appearing woman resting in bed. HEENT: Anicteric. CARDIOVASCULAR: Normal S1 and S2. LUNGS: Moderate breath sounds and reduced at base. ABDOMEN: Soft, nontender and nondistended. EXTREMITIES: No edema. SKIN: Dry. PSYCHIATRIC: Normal affect. LABS: Reviewed. MEDICATIONS: Reviewed. ASSESSMENT: A 67-year-old woman with: 1. Acute exacerbation of chronic obstructive pulmonary disease. 2. Acute respiratory failure. 3. Hypertension. 4. Myelodysplastic syndrome. 5. Hyperglycemia. 6. Elevated BNP. 7. Fungal pneumonia with yeast. PLAN 1. Continue oxygen support. 2. Continue physical therapy. 3. Left ventricular ejection fraction 50% to 55%. 4. Hemoglobin A1c 4.1, LDL 73. 5. Follow I's and O's. Continue diuretics. 6. Continue anxiolytics with Xanax. 7. Influenza screen negative. 8. Continue azithromycin and ceftriaxone. 9. Continue Diflucan for fungal pneumonia. 10. Replace calcium. 11. Follow up IgE levels. Job#: [id number] DEANNA
[2017-08-03] MEDS: FLUCONAZOLE 100 MG/NS 50 ML 50 ML IV SCH (13:24)
[2017-08-03] MEDS: ONDANSETRON HCL INJ 2 MG/ML VIAL IV PRN (14:05)
[2017-08-03] MEDS: ENOXAPARIN SOD INJ 40 MG/0.4 ML SYR SC SCH (16:12)
[2017-08-03] MEDS ORDERED: POTASSIUM CHLORIDE 20 MEQ TAB CR PO STA (20:02)
[2017-08-03] MEDS: AZITHROMYCIN 500MG/NS 250 ML 250 ML IV SCH (21:09)
[2017-08-03] MEDS: CEFTRIAXONE SOD 1 GM VIAL IV SCH (21:09)
[2017-08-03] MEDS: CYANOCOBALAMIN 1,000 MCG TAB PO SCH (21:09)
[2017-08-04 00:14] VITALS: BP 131/62
[2017-08-04 00:23] VITALS: BP 131/61
[2017-08-04] MEDS: ALBUTEROL/IPRATROPIUM 3 ML NEB NEB SCH ×4 (02:00→19:15)
--- NOTE | 2017-08-04 03:08 | Progress Note ---
DATE: August 03, 2017 PULMONARY MEDICINE PROGRESS NOTE SUBJECTIVE: Ms. Pan was seen and examined at bedside, and 1 L in and 1.2 L out was recorded. Patient had 1 bowel movement. Oxygen saturation 99% on 4 L per minute nasal cannula oxygen. Patient is better today significantly, and is currently off BiPAP. REVIEW OF SYSTEMS: No diarrhea. No bleeding. OBJECTIVE VITALS: Afebrile. Vital signs noted per electronic record. GENERAL: No acute distress. Alert and calm. HEENT: Normocephalic and atraumatic. NECK: Supple. Throat midline. LUNGS: Bilateral air entry. Mostly clear. CARDIOVASCULAR: S1 and S2. No murmurs, rubs or gallops. ABDOMEN: Soft and nontender. EXTREMITIES: No clubbing. No cyanosis. There is no edema. INTEGUMENT: No rash. No purpura. LABS: Potassium 2.7, BUN 33, creatinine 0.7. White count 9.7. T4 level less than 2. T3 is 43. IMPRESSION AND PLAN 1. 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 2. Treat as chronic obstructive pulmonary disease versus asthma with exacerbation. 3. Reported idiopathic recurrent urticaria. 4. History of myelodysplastic syndrome. 5. Fluid overload, treat as active. 6. Treat as active pneumonitis, possibly in an immunosuppressed state. Follow up bronchoscopy results, including the growth of yeast that is coming. Follow up cytology. Will check a C1 esterase inhibitor level for the low complements. Patient may be indicated for increased prophylaxis of her angioedema condition. Continue some Lasix and give some potassium, and repeat a chest x-ray tomorrow. Thank you very much. Will continue to follow. Job#: [id number] [place]
[2017-08-04 04:58] VITALS: BP 139/83
--- NOTE | 2017-08-04 06:45 | Progress Note ---
DATE: August 04, 2017 TIME: 5:30 a.m. OVERNIGHT: Feeling a little better. REVIEW OF SYSTEMS: Denies any dizziness. PHYSICAL EXAMINATION VITAL SIGNS: Reviewed. GENERAL: A tired-appearing woman resting in bed. HEENT: Anicteric. CARDIOVASCULAR: Normal S1 and S2. LUNGS: She has moderate breath sounds reduced at the base. ABDOMEN: Soft, nontender and nondistended. EXTREMITIES: No edema. SKIN: Dry. PSYCHIATRIC: Normal affect. LABS: Reviewed. MEDICATIONS: Reviewed. ASSESSMENT: A 67-year-old woman with: 1. Acute exacerbation of chronic obstructive pulmonary disease. 2. Acute respiratory failure. 3. Hypertension. 4. Myelodysplastic syndrome. 5. Hyperglycemia. 6. Elevated BNP. 7. Fungal pneumonia with yeast. 8. Low complement levels with a history of angioedema. PLAN 1. Continue oxygen support. 2. Left ventricular ejection fraction 50% to 55%. 3. Hemoglobin A1c 4.1, LDL 73. 4. Follow up labs this morning. 5. IgE is still pending. Patient had low complement level. 6. Patient is improving. She plans to transition home from here once improved. Job#: [id number] DEANNA
[2017-08-04 07:10] LABS: BASOPHILS % 0.4 % (0.0-1.0); EOSINOPHILS % 0.3 % (0.0-6.0); HEMATOCRIT 33.1 % (34.2-44.1); LYMPHOCYTES # (AUTO) 3.5 (1.0-3.2); LYMPHOCYTES % 38.2 % (18.0-39.1); MEAN CORPUSCULAR HEMOGLOBIN 28.1 pg (28-32); MEAN CORPUSCULAR HGB CONC 30.2 g/dL (31-35); MONOCYTES # (AUTO) 0.5 (0.2-0.8); MONOCYTES % 5.4 % (4.4-11.3); NEUTROPHILS # (AUTO) 4.7 (2.1-6.9); NEUTROPHILS % 52.2 % (38.7-80.0); PLATELET COUNT 258 x10e3/uL (140-360); RED BLOOD COUNT 3.56 x10e6/uL (3.6-5.1); RED CELL DISTRIBUTION WIDTH 26.8 % (11.7-14.4)
[2017-08-04 07:44] LABS: ANION GAP 12.8 mmol/L (8-16); BLOOD UREA NITROGEN 27 mg/dL (7-26); BUN/CREATININE RATIO 37 (6-25); CARBON DIOXIDE 29 mmol/L (22-29); CHLORIDE 103 mmol/L (98-107); CREATININE, SERUM 0.73 mg/dL (0.57-1.11); EST GLOMERULAR FILTRATION RATE > 60 ML/MIN (60-); GLUCOSE 114 mg/dL (74-118); POTASSIUM 3.8 mmol/L (3.5-5.1); SODIUM 141 mmol/L (136-145)
[2017-08-04 07:48] VITALS: BP 127/60
[2017-08-04] MEDS: CHOLECALCIFEROL 1,000 UNIT TAB PO SCH (08:00)
[2017-08-04] MEDS: PREDNISONE 20 MG TAB PO SCH (08:00)
[2017-08-04] MEDS: FUROSEMIDE 20 MG TAB PO SCH (08:00)
[2017-08-04] MEDS: LORATADINE 10 MG TAB PO SCH (08:00)
[2017-08-04] MEDS: METOPROLOL TARTRATE 25 MG TAB PO SCH ×2 (08:00→17:00)
[2017-08-04] MEDS: FAMOTIDINE 20 MG/2 ML VIAL IV SCH ×2 (08:00→17:00)
[2017-08-04] MEDS: FOLIC ACID 1 MG TAB PO SCH (08:00)
[2017-08-04] MEDS: PYRIDOXINE HCL 50 MG TAB PO SCH ×2 (08:00→17:00)
[2017-08-04] MEDS: ZINC SULFATE 220 MG CAP PO SCH (08:00)
[2017-08-04 08:20] LABS: BAND NEUTROPHILS % (MANUAL) 3 %; EOSINOPHILS % (MANUAL) 2 % (0-7); LYMPHOCYTES % (MANUAL) 37 % (19-48); METAMYELOCYTES % (MANUAL) 1 % (0-0); MONOCYTES % (MANUAL) 5 % (3.4-9.0); NEUTROPHILS % (MANUAL) 50 % (40-74); NUCLEATED RED BLOOD CELLS 1
[2017-08-04 08:21] LABS: ANISOCYTOSIS MODERATE; HYPOCHROMASIA SLIGHT; PLATELET ESTIMATE ADEQUATE; PLATELET MORPHOLOGY COMMENT FEW LARGE; POIKILOCYTOSIS MODERATE; RBC MORPHOLOGY COMMENT ABNORMAL
--- NOTE | 2017-08-04 08:27 | Diagnostic Imaging Report ---
PROCEDURE: CHEST SINGLE (PORTABLE) COMPARISON: None. INDICATIONS: CHF FINDINGS: LUNGS: Improvement in the pulmonary vascular congestion. Unchanged linear scarring versus subsegmental atelectasis in the left midlung zone laterally. PLEURA: No effusions or pneumothorax. HEART \T\ MEDIASTINUM: The heart is within normal size-limits. BONES \T\ SOFT TISSUES: No acute findings. CONCLUSION: Improvement in the pulmonary vascular congestion. Davonte Sarmiento D.O. Dictated by: Davonte Sarmiento D.O. on 08/04/2017 at 8:35 Electronically approved by: Davonte Sarmiento D.O. on 08/04/2017 at 8:35
--- NOTE | 2017-08-04 10:41 | Progress Note ---
DATE: August 04, 2017 PULMONARY MEDICINE PROGRESS NOTE SUBJECTIVE: Ms. Pan was seen and examined at bedside, and 89% room air saturation is noted. On oxygen at 2 L per minute, she has 96% saturation. Had 1.0 L in and 1.2 L out. One bowel movement achieved. Slowly better. Still has some trouble expectorating secretions intermittently. REVIEW OF SYSTEMS: No headache. No nosebleed. OBJECTIVE VITALS: Afebrile. Vital signs noted per electronic record. GENERAL: No acute distress. Alert. Intermittent cough and trouble expectorating. HEENT: Normocephalic and atraumatic. NECK: Supple. Throat midline. LUNGS: Bilateral air entry, a few moderate rhonchi on the right side, small rhonchi on the left. CARDIOVASCULAR: S1 and S2. No murmurs, rubs or gallops. ABDOMEN: Soft and nontender. EXTREMITIES: No clubbing. No cyanosis. There is no edema. INTEGUMENT: No rash. No purpura. LABS: 3.8 potassium, 27 BUN, 0.73 creatinine, 9 white count, 32 hematocrit, 258 platelets. Rheumatoid factor and BASIA were both negative. IMPRESSION AND PLAN 1. Chronic obstructive pulmonary disease with exacerbation. 2. Reported urticaria, recurrent. 3. Hereditary angioedema. 4. Myelodysplastic syndrome on therapy, treat as immunosuppressed state. 5. Pneumonitis. 6. Possible fluid overload. PLAN: Continue current treatment at this time. Continue low levels of diuresis as chest x-ray is improving on Lasix. Continue to treat as pneumonia. Due to low complements being present, we cannot rule out hereditary angioedema with flare that brought the patient here. Therefore, we are going to also send now a C1 esterase inhibitor assay. Continue steroids and steroid weaning. Antihistamines also ongoing. Follow along closely. Replete potassium. Job#: [id number]
[2017-08-04] MEDS ORDERED: POTASSIUM CHLORIDE 20 MEQ TAB CR PO NR (11:15)
[2017-08-04] MEDS: FLUCONAZOLE 100 MG/NS 50 ML 50 ML IV SCH (12:00)
[2017-08-04] MEDS: ENOXAPARIN SOD INJ 40 MG/0.4 ML SYR SC SCH (17:00)
[2017-08-04 20:00] VITALS: BP 142/65
[2017-08-04] MEDS: AZITHROMYCIN 500MG/NS 250 ML 250 ML IV SCH (20:47)
[2017-08-04] MEDS: CEFTRIAXONE SOD 1 GM VIAL IV SCH (20:47)
[2017-08-04] MEDS: CYANOCOBALAMIN 1,000 MCG TAB PO SCH (20:47)
[2017-08-04] MEDS: ONDANSETRON HCL INJ 2 MG/ML VIAL IV PRN (20:47)
[2017-08-04] MEDS: LORAZEPAM 0.5 MG TAB PO PRN (21:55)
[2017-08-04] MEDS: BENZONATATE 100 MG CAP PO PRN (21:55)
[2017-08-05] VITALS (10 sets, daily range): BP systolic 102–153; BP diastolic 52–79
[2017-08-05] MEDS: ALBUTEROL/IPRATROPIUM 3 ML NEB NEB SCH ×4 (00:15→19:00)
--- NOTE | 2017-08-05 06:27 | Diagnostic Imaging Report ---
EXAM: CHEST SINGLE (PORTABLE), AP 1 view DATE: 08/05/2017 5:00 AM Time stamp on exam: 0549 hours INDICATION: CHF COMPARISON: AP view of the chest August 04, 2017 FINDINGS: LINES/TUBES: None LUNGS: No consolidations or edema. Stable linear scarring left mid lung. Stable vascular congestion. Biapical scarring. PLEURA: No effusions or pneumothorax. HEART AND MEDIASTINUM: Normal size and contour. BONES AND SOFT TISSUES: No acute findings. IMPRESSION: No interval change. Signed by: Dr. Shanda Ayala M.D. on 08/05/2017 6:24 AM
[2017-08-05] MEDS: PYRIDOXINE HCL 50 MG TAB PO SCH ×2 (08:15→17:00)
[2017-08-05] MEDS: FUROSEMIDE 20 MG TAB PO SCH (08:15)
[2017-08-05] MEDS: FAMOTIDINE 20 MG/2 ML VIAL IV SCH ×2 (08:15→17:00)
[2017-08-05] MEDS: LORATADINE 10 MG TAB PO SCH (08:15)
[2017-08-05] MEDS: FOLIC ACID 1 MG TAB PO SCH (08:15)
[2017-08-05] MEDS: CHOLECALCIFEROL 1,000 UNIT TAB PO SCH (08:15)
[2017-08-05] MEDS: ZINC SULFATE 220 MG CAP PO SCH (08:15)
[2017-08-05] MEDS: METOPROLOL TARTRATE 25 MG TAB PO SCH ×2 (08:15→17:00)
--- NOTE | 2017-08-05 08:54 | Progress Note ---
DATE: August 05, 2017 TIME: 7:48 a.m. OVERNIGHT: Still some shortness of breath and cough. REVIEW OF SYSTEMS: Denies any dizziness. PHYSICAL EXAMINATION: VITAL SIGNS: Reviewed. GENERAL APPEARANCE: Tired-appearing woman resting in bed. HEENT: Anicteric. CARDIOVASCULAR: Normal S1 and S2. LUNGS: Moderate breath sounds, reduced throughout. ABDOMEN: Soft, nontender, nondistended. EXTREMITIES: No edema. SKIN: Dry. PSYCHIATRIC: Normal affect. LABS: Reviewed. MEDICATIONS: Reviewed. ASSESSMENT: A 67-year-old woman: 1. Acute exacerbation of chronic obstructive pulmonary disease. 2. Acute respiratory failure. 3. Low complement levels with history of angioedema. 4. Hypertension. 5. Myelodysplastic syndrome. 6. Hyperglycemia. 7. Elevated B-type natriuretic peptide. 8. Fungal pneumonia with yeast. PLAN: 1. Follow up C1 esterase inhibitor levels. 2. Continue oxygen support. 3. Continue antitussive medication. 4. Continue steroids. 5. Hemoglobin A1c 4.1. 6. Serologic studies are negative. 7. Chest x-ray this morning showed no interval change, there is biapical scarring and vascular congestion. 8. Continue ceftriaxone, azithromycin, fluconazole, and prednisone. Job#: [id number]
[2017-08-05] MEDS ORDERED: PREDNISONE 20 MG TAB PO SCH (09:00)
[2017-08-05] MEDS: LORAZEPAM 0.5 MG TAB PO PRN ×2 (09:20→21:54)
[2017-08-05] MEDS: FLUCONAZOLE 100 MG/NS 50 ML 50 ML IV SCH (12:00)
--- NOTE | 2017-08-05 13:35 | Progress Note ---
DATE: August 05, 2017 PULMONARY MEDICINE PROGRESS NOTE SUBJECTIVE: Ms. Pan was seen and examined at bedside. She continues to have 100% oxygen saturation on 3 L per minute of nasal flow oxygen. The patient did get BiPAP transiently this morning due to shortness of breath. The patient is eating, and she is having bowel movements. REVIEW OF SYSTEMS: No headache. No rash. OBJECTIVE VITALS: Afebrile. Vital signs noted per electronic record. GENERAL: No acute distress. Alert and calm when I am talking to her and looking with only minimal increased work of breathing. HEENT: Normocephalic, atraumatic. NECK: Supple. Throat is midline. LUNGS: Bilateral air entry, rare rhonchi. CARDIOVASCULAR: S1 and S2. No murmurs, rubs or gallops. ABDOMEN: Soft and nontender. EXTREMITIES: No clubbing. No cyanosis. There is no edema. INTEGUMENT: No rash. No purpura. LABS: No new updates. IMPRESSION AND PLAN 1. Chronic obstructive pulmonary disease, asthmatic phenotype with exacerbation. 2. Angioedema, hereditary, unclear if there is active crisis. 3. Fluid overload, mild. 4. Anxiety. 5. Myelodysplastic syndrome with functionally immunosuppressed state. 6. Pneumonia per CAT scan. 7. Early onset dyspnea. PLAN: Continue BiPAP intermittently as needed for rescue. Continue Ativan p.r.n. for anxiety. Will add Paxil for long-term anxiety effect. The patient will continue on low doses of diuretics as well as on decreasing prednisone course. Consideration when she is outpatient is to add theophylline step-up therapy. Will await C1 esterase inhibitor level as well as will await IgE level, which may give different treatments if it is high. Job#: [id number]
[2017-08-05] MEDS: ENOXAPARIN SOD INJ 40 MG/0.4 ML SYR SC SCH (17:00)
[2017-08-05] MEDS: CEFTRIAXONE SOD 1 GM VIAL IV SCH (21:54)
[2017-08-05] MEDS: BENZONATATE 100 MG CAP PO PRN (21:54)
[2017-08-05] MEDS: AZITHROMYCIN 500MG/NS 250 ML 250 ML IV SCH (21:54)
[2017-08-05] MEDS: CYANOCOBALAMIN 1,000 MCG TAB PO SCH (21:54)
[2017-08-06] VITALS (7 sets, daily range): BP systolic 108–156; BP diastolic 50–86
[2017-08-06] MEDS: ALBUTEROL/IPRATROPIUM 3 ML NEB NEB SCH ×4 (00:45→20:05)
[2017-08-06 08:56] LABS: ANION GAP 10.5 mmol/L (8-16); BLOOD UREA NITROGEN 20 mg/dL (7-26); BUN/CREATININE RATIO 27 (6-25); CALCIUM 8.8 mg/dL (8.4-10.2); CARBON DIOXIDE 33 mmol/L (22-29); CHLORIDE 102 mmol/L (98-107); CREATININE, SERUM 0.73 mg/dL (0.57-1.11); EST GLOMERULAR FILTRATION RATE > 60 ML/MIN (60-); GLUCOSE 87 mg/dL (74-118); MAGNESIUM 1.7 MG/DL (1.3-2.1); POTASSIUM 3.5 mmol/L (3.5-5.1); SODIUM 142 mmol/L (136-145)
[2017-08-06] MEDS: METOPROLOL TARTRATE 25 MG TAB PO SCH ×2 (09:31→18:01)
[2017-08-06] MEDS: FAMOTIDINE 20 MG/2 ML VIAL IV SCH ×2 (09:31→18:01)
[2017-08-06] MEDS: CHOLECALCIFEROL 1,000 UNIT TAB PO SCH (09:31)
[2017-08-06] MEDS: PAROXETINE HCL 20 MG TAB PO SCH (09:31)
[2017-08-06] MEDS: LORATADINE 10 MG TAB PO SCH (09:31)
[2017-08-06] MEDS: FOLIC ACID 1 MG TAB PO SCH (09:31)
[2017-08-06] MEDS: PYRIDOXINE HCL 50 MG TAB PO SCH ×2 (09:31→18:01)
[2017-08-06] MEDS: FUROSEMIDE 20 MG TAB PO SCH (09:31)
[2017-08-06] MEDS: PREDNISONE 20 MG TAB PO SCH (09:31)
[2017-08-06] MEDS: ZINC SULFATE 220 MG CAP PO SCH (09:31)
--- NOTE | 2017-08-06 09:33 | Progress Note ---
DATE: August 06, 2017 TIME: 6:15 a.m. OVERNIGHT: No events . REVIEW OF SYSTEMS: Denies any dizziness, chest pain. PHYSICAL EXAMINATION: VITAL SIGNS: Reviewed. GENERAL APPEARANCE: Tired-appearing woman resting in bed. HEENT: Anicteric. CARDIOVASCULAR: Normal S1 and S2. LUNGS: She has moderate breath sounds. ABDOMEN: Soft, nontender, nondistended. EXTREMITIES: No edema. SKIN: Dry. PSYCHIATRIC: Flat affect. LABS: Reviewed. MEDICATIONS: Reviewed. ASSESSMENT: This is a 67-year-old woman: 1. Acute exacerbation of chronic obstructive pulmonary disease. 2. Acute respiratory failure. 3. Low complement levels with history of angioedema. 4. Hypertension. 5. Myelodysplastic syndrome. 6. Hyperglycemia with normal hemoglobin A1c. 7. Elevated B-type natriuretic peptide. 8. Fungal pneumonia with yeast. PLAN: 1. Continue oral steroids, IV fluconazole, azithromycin, and ceftriaxone. 2. Continue antitussive medications. 3. Serology for viral organisms all negative. 4. C1 esterase inhibitor is still pending. Complement levels were low. 5. Obtain labs this morning. 6. I have discussed all questions at the front of the chart with the patient at bedside. I have also discussed placement at skilled facility. Will consult case management for placement today. Job#: [id number]
[2017-08-06] MEDS: LORAZEPAM 0.5 MG TAB PO PRN ×2 (09:43→21:14)
[2017-08-06] MEDS: ONDANSETRON HCL INJ 2 MG/ML VIAL IV PRN (09:43)
[2017-08-06 09:56] LABS: BASOPHILS # (AUTO) 0.1 (0.0-0.1); BASOPHILS % 0.8 % (0.0-1.0); EOSINOPHILS # (AUTO) 0.1 (0.0-0.4); EOSINOPHILS % 0.8 % (0.0-6.0); HEMATOCRIT 36.3 % (34.2-44.1); HEMOGLOBIN 10.7 g/dL (12.0-16.0); LYMPHOCYTES # (AUTO) 4.6 (1.0-3.2); LYMPHOCYTES % 38.4 % (18.0-39.1); MEAN CORPUSCULAR HEMOGLOBIN 27.6 pg (28-32); MEAN CORPUSCULAR HGB CONC 29.5 g/dL (31-35); MEAN CORPUSCULAR VOLUME 93.6 fL (81-99); MONOCYTES # (AUTO) 0.9 (0.2-0.8); MONOCYTES % 7.3 % (4.4-11.3); NEUTROPHILS # (AUTO) 5.7 (2.1-6.9); NEUTROPHILS % 47.6 % (38.7-80.0); PLATELET COUNT 356 x10e3/uL (140-360); RED BLOOD COUNT 3.88 x10e6/uL (3.6-5.1); RED CELL DISTRIBUTION WIDTH 27.1 % (11.7-14.4)
[2017-08-06] MEDS: FLUCONAZOLE 100 MG/NS 50 ML 50 ML IV SCH (13:02)
--- NOTE | 2017-08-06 13:12 | Progress Note ---
DATE: August 06, 2017 PULMONARY MEDICINE PROGRESS NOTE SUBJECTIVE: Ms. Pan was seen and examined at bedside. Ms. Pan has 100% oxygen saturation. She is on 3 L per minute of nasal cannula oxygen. She is having bowel movements. The patient continues to be weak. Some early dyspnea is still noted. REVIEW OF SYSTEMS: No headache. No diarrhea. OBJECTIVE VITALS: Reviewed per record, afebrile. LUNGS: Bilateral air entry. Moderate rhonchi still present. EXTREMITIES: No edema. IMPRESSION AND PLAN 1. Chronic obstructive pulmonary disease versus asthma with exacerbation. 2. Urticaria, with normal IgE level. 3. Hypogammaglobulinemia, decreased IgG and IgA levels. 4. Myelodysplastic syndrome. 5. Angioedema, hereditary form. Continue current treatment. Will continue treatment for pneumonia underlying. Diflucan can either be continued or can be given for the lung or can be held off while we await cultures. Continue antibiotics. Prednisone is being weaned. Continue bronchodilators and get her stronger. prison facility evaluation. Job#: [id number]
[2017-08-06] MEDS: ENOXAPARIN SOD INJ 40 MG/0.4 ML SYR SC SCH (18:01)
[2017-08-06] MEDS: CYANOCOBALAMIN 1,000 MCG TAB PO SCH (21:14)
[2017-08-06] MEDS: BENZONATATE 100 MG CAP PO PRN (21:14)
[2017-08-06] MEDS: AZITHROMYCIN 500MG/NS 250 ML 250 ML IV SCH (21:14)
[2017-08-06] MEDS: CEFTRIAXONE SOD 1 GM VIAL IV SCH (21:14)
[2017-08-07] VITALS (7 sets, daily range): BP systolic 115–142; BP diastolic 50–65
[2017-08-07] MEDS: ALBUTEROL/IPRATROPIUM 3 ML NEB NEB SCH ×3 (01:40→12:35)
[2017-08-07] MEDS ORDERED: PREDNISONE20 MG PO ×2 (06:21→15:30)
[2017-08-07] MEDS ORDERED: FUROSEMIDE20 MG PO (06:21)
[2017-08-07] MEDS ORDERED: TESSALON PERLE100 MG PO (06:21)
[2017-08-07] MEDS ORDERED: LORATADINE10 MG PO (06:21)
[2017-08-07] MEDS ORDERED: FLUCONAZOLE100 MG PO (06:56)
[2017-08-07] MEDS: ONDANSETRON HCL INJ 2 MG/ML VIAL IV PRN (07:05)
--- NOTE | 2017-08-07 07:41 | Discharge Summary ---
PRINCIPAL DIAGNOSES 1. Acute exacerbation of chronic obstructive pulmonary disease. 2. Acute respiratory failure. 3. Low complement levels and low C1 esterase inhibitor suggestive of acute flare of angioedema. 4. Hypertension. 5. Myelodysplastic syndrome. 6. Hyperglycemia with normal hemoglobin A1c. 7. Fungal pneumonia with Laxmi albicans. SECONDARY DIAGNOSIS: Angioedema. CHIEF COMPLAINT: Shortness of breath. HISTORY OF PRESENT ILLNESS: A 67-year-old female with shortness of breath. Refer to the H and P for further details. HOSPITAL COURSE: The patient had acute exacerbation of COPD. She had acute respiratory failure. The patient also had low complement levels and low C1 esterase inhibitor suggestive of an acute flare of angioedema. She was restarted on her home medications for treatment. She had hyperglycemia with normal hemoglobin A1c. She elevated BNP. She had findings of Laxmi albicans in the bronchial washings after receiving a bronchoscopy suggestive of fungal pneumonia. The patient is doing better. She will be discharged and transitioned home with antifungal antibiotics. She will also resume her home treatment for her angioedema. DISCHARGE MEDICATIONS: Per electronic medical record. FOLLOWUP 1. Primary care doctor in 1 week. 2. Follow up with Dr. Lopez, outpatient regulatory law specialist, in 10 days. CONDITION ON DISCHARGE: Stable and improving. DISCHARGE LOCATION: Home with home oxygen. Family is not interested in home physical therapy or home health services at this time as they have all needs met at home, including oxygen, bedside commode and 24-hour care by her . YUE OQUENDO MD Job#: [id number] [place]
[2017-08-07] MEDS: METOPROLOL TARTRATE 25 MG TAB PO SCH (09:00)
[2017-08-07] MEDS: FUROSEMIDE 20 MG TAB PO SCH (09:03)
[2017-08-07] MEDS: PYRIDOXINE HCL 50 MG TAB PO SCH (09:03)
[2017-08-07] MEDS: FAMOTIDINE 20 MG/2 ML VIAL IV SCH (09:03)
[2017-08-07] MEDS: PAROXETINE HCL 20 MG TAB PO SCH (09:03)
[2017-08-07] MEDS: FOLIC ACID 1 MG TAB PO SCH (09:03)
[2017-08-07] MEDS: PREDNISONE 20 MG TAB PO SCH (09:03)
[2017-08-07] MEDS: LORATADINE 10 MG TAB PO SCH (09:03)
[2017-08-07] MEDS: CHOLECALCIFEROL 1,000 UNIT TAB PO SCH (09:03)
[2017-08-07] MEDS: ZINC SULFATE 220 MG CAP PO SCH (09:03)
[2017-08-07] MEDS: FLUCONAZOLE 100 MG/NS 50 ML 50 ML IV SCH (12:56)
[2017-08-07] MEDS ORDERED: LORAZEPAM0.5 MG PO (15:30)
[2017-08-07] MEDS ORDERED: AZITHROMYCIN250 MG PO (16:10)
--- NOTE | 2017-08-07 17:21 | Progress Note ---
DATE: August 07, 2017 PULMONARY MEDICINE PROGRESS NOTE SUBJECTIVE: Mrs Pan was seen and examined at bedside. Discharge planning is under way. We discussed about her anxiety medications. She did not tolerate the Paxil yesterday. The patient, furthermore, moving better with less shortness of breath. She continues on oxygen flow at this time. She also mentioned outpatient planning. REVIEW OF SYSTEMS: No bleeding, no rash. OBJECTIVE VITAL SIGNS: Afebrile. Vital signs noted per electronic record. GENERAL: In no acute distress. HEENT: Normocephalic. NECK: Supple. LUNGS: Bilateral air entry. CARDIOVASCULAR: S1 and S2. ABDOMEN: Soft. EXTREMITIES: No edema. INTEGUMENT: No rash, no purpura. IMPRESSION 1. Chronic obstructive pulmonary disease versus asthma with exacerbation. 2. Hereditary angioedema, with active low C1 level. 3. History of myelodysplastic syndrome and presumed immunosuppressed state. 4. Abnormal chest radiography with bilateral ground glass infiltrates, treating as pneumonia. Cannot rule out influenza overload component, especially when she was on IV fluids at the time of admission. 5. Weakness. PLAN: Continue current treatment at this time. She says she wants to see me in my office in about a month. She will go to her primary care physician in the meantime. The patient has bronchodilators. I went over the plan with her. I additionally wrote for some Ativan. Furthermore, prednisone for rescue will be given. I gave her copies of her low compliment to take to her thread puller. Will continue to follow as needed. Expected for discharge today. Job#: [id number]
== END 2017-08-07 16:27 | disposition home or self-care (01) | DRG 208 ==
LOC: ER 19:53 → ERHOLD 07-30 01:28 → ICU 07-30 21:28 → MED/SURG3 08-01 15:29
PROVIDERS: ADMIT Internal Medicine; ATTEND Internal Medicine
PROC: 5A1935Z Respiratory Ventilation, Less than 24 Consecutive Hours (ICD-10-PCS; principal; 2017-07-30)
PROC: 0BH17EZ Insertion of Endotracheal Airway into Trachea, Via Natural or Artificial Opening (ICD-10-PCS; 2017-07-30)
PROC: 0BB48ZX Excision of Right Upper Lobe Bronchus, Via Natural or Artificial Opening Endoscopic, Diagnostic (ICD-10-PCS; 2017-07-31)
PROC: 0B948ZX Drainage of Right Upper Lobe Bronchus, Via Natural or Artificial Opening Endoscopic, Diagnostic (ICD-10-PCS; 2017-07-31)
PROC: 5A09357 Assistance with Respiratory Ventilation, Less than 24 Consecutive Hours, Continuous Positive Airway Pressure (ICD-10-PCS; 2017-07-31)
DX: J96.01 Acute respiratory failure with hypoxia (principal); B37.1 Pulmonary candidiasis; E87.0 Hyperosmolality and hypernatremia; J44.1 Chronic obstructive pulmonary disease with (acute) exacerbation; D46.9 Myelodysplastic syndrome, unspecified; J96.02 Acute respiratory failure with hypercapnia; K21.9 Gastro-esophageal reflux disease without esophagitis; I10 Essential (primary) hypertension; D64.9 Anemia, unspecified; E78.5 Hyperlipidemia, unspecified; Z87.891 Personal history of nicotine dependence; D84.1 Defects in the complement system; M81.0 Age-related osteoporosis without current pathological fracture; Z99.81 Dependence on supplemental oxygen; E83.51 Hypocalcemia; R73.9 Hyperglycemia, unspecified; E87.6 Hypokalemia; R53.1 Weakness; Z88.5 Allergy status to narcotic agent
CPT/HCPCS: 31500; 36415; 36600; 71045; 71260; 80048; 80053; 80061; 81001; 82103; 82550; 82553; 82784; 82785; 82805; 83036; 83605; 83735; 83880; 84443; 84484; 85025; 85610; 85730; 86039; 86160; 86431; 87040; 87070; 87086; 87102; 87116; 87205; 87206; 87335; 87400; 87633; 88112; 88305; 89051; 93005; 93306; 94640; 94660; 96367; 96372; 96375; 96376; 97139; 99285; J0171; J0330; J0456; J0610; J0696; J1450; J1650; J1940; J2250; J2405; J2920; J2930; J3370; J3480; J7030; J7040; J7050; Q9967

== ENCOUNTER 2018-03-10 11:00 | Inpatient (IN) | payer MEDICARE ==
[~2018-03-10] VITALS: Ht 165.1 cm; Wt 70.8 kg
[~2018-03-10 11:00] MED LIST changes: +AZITHROMYCIN250 MG PO; +FLUCONAZOLE100 MG PO; +FOLIC ACID1 MG PO; +FUROSEMIDE20 MG PO; +LORATADINE10 MG PO; +LORAZEPAM0.5 MG PO; +VITAMIN B-121000 MC1 PO; +VITAMIN D32000 UNIT PO; +[UNRECOGNIZED DRUG - OTHER] SC; +[UNRECOGNIZED DRUG - REMARK]
[2018-03-10] MEDS ORDERED: ONDANSETRON HCL INJ 2 MG/ML VIAL IV STA (11:06)
[2018-03-10] MEDS ORDERED: MAGNESIUM SULFATE 2GM/50ML 50 ML IV ONE (11:15)
[2018-03-10 11:29] LABS: BASOPHILS # (AUTO) 0.1 (0.0-0.1); BASOPHILS % 0.5 % (0.0-1.0); EOSINOPHILS # (AUTO) 0.2 (0.0-0.4); EOSINOPHILS % 1.4 % (0.0-6.0); HEMATOCRIT 34.3 % (34.2-44.1); HEMOGLOBIN 10.3 g/dL (12.0-16.0); LYMPHOCYTES # (AUTO) 5.6 (1.0-3.2); LYMPHOCYTES % 42.3 % (18.0-39.1); MEAN CORPUSCULAR HEMOGLOBIN 25.9 pg (28-32); MEAN CORPUSCULAR VOLUME 86.4 fL (81-99); MONOCYTES # (AUTO) 0.9 (0.2-0.8); MONOCYTES % 6.6 % (4.4-11.3); NEUTROPHILS # (AUTO) 6.3 (2.1-6.9); NEUTROPHILS % 47.8 % (38.7-80.0); PLATELET COUNT 361 x10e3/uL (140-360); RED BLOOD COUNT 3.97 x10e6/uL (3.6-5.1)
[2018-03-10] MEDS ORDERED: LORAZEPAM INJ 2 MG/ML VIAL IV ONE (11:30)
[2018-03-10 11:42] LABS: BILIRUBIN,URINE NEGATIVE (NEGATIVE); CLARITY,URINE CLEAR (CLEAR); COLOR,URINE YELLOW (YELLOW); KETONES,URINE NEGATIVE (NEGATIVE); LEUKOCYTE ESTERASE ,URINE NEGATIVE (NEGATIVE); NITRITE,URINE NEGATIVE (NEGATIVE); PROTEIN,URINE DIPSTICK NEGATIVE (NEGATIVE); URINE UROBILINOGEN 0.2 mg/dL (0.2 - 1)
[2018-03-10 11:51] LABS: ALBUMIN 3.9 g/dL (3.5-5.0); ALBUMIN/GLOBULIN RATIO 1.6 (0.8-2.0); ANION GAP 15.6 mmol/L (8-16); CALCIUM 8.2 mg/dL (8.4-10.2); CREATININE, SERUM 1.22 mg/dL (0.57-1.11); MAGNESIUM 1.3 MG/DL (1.3-2.1); POTASSIUM 4.6 mmol/L (3.5-5.1)
[2018-03-10 11:52] LABS: BACTERIA,URINE FEW /HPF; EPITHELIAL CELLS,URINE FEW /LPF; RBC,URINE 0-5 /HPF (0-5); WBC,URINE (MAN) 0-5 /HPF (0-5)
[2018-03-10 11:55] LABS: INR 1.09; PROTHROMBIN TIME 13.3 seconds (11.9-14.5)
[2018-03-10 11:57] LABS: CREATINE KINASE MB 4.7 ng/mL (0-5.0)
[2018-03-10 12:07] LABS: PARTIAL THROMBOPLASTIN TIME 23.7 seconds (23.8-35.5)
[2018-03-10 12:52] LABS: ABG PH 7.29 (7.31-7.41)
[2018-03-10 12:53] LABS: ABG PCO2 67 mmHg (41-51)
[2018-03-10 12:54] LABS: ABG HCO3 32 mmol/L (23-28); ABG PO2 161 mmHg (80-105)
[2018-03-10] MEDS ORDERED: METHYLPREDNISOLONE SOD SUCC 40 MG/ML VIAL IV SCH (13:15)
[2018-03-10] MEDS: DOXYCYCLINE HYCLATE TABLET 100 MG TAB PO SCH ×2 (14:50→21:51)
[2018-03-10] MEDS: ALBUTEROL/IPRATROPIUM 3 ML NEB NEB SCH ×3 (15:35→23:20)
[2018-03-10] MEDS: ENOXAPARIN SOD INJ 40 MG/0.4 ML SYR SC SCH (16:58)
--- NOTE | 2018-03-10 17:33 | Diagnostic Imaging Report ---
PROCEDURE: A single AP view of the chest. COMPARISON: Chest radiograph 08/05/17. INDICATIONS: shortness of breath FINDINGS: Lines/tubes: None. Lungs: The lungs are hyperinflated. A linear opacity again is noted in the left mid lung. There is a nodular opacity which projects adjacent to the linear opacity. Interval resolution of vascular congestion. Biapical scarring is present. No evidence of lobar pneumonia or pulmonary edema. Pleura: There is no pleural effusion or pneumothorax. Heart and mediastinum: The cardiomediastinal silhouette is unchanged. Bones: No acute bony abnormality. IMPRESSION: Scarring in the left mid lung with new adjacent nodular opacity. No pulmonary nodule was present at this location on CT from 07/30/17. This finding may represent an infectious or inflammatory focus, although a new pulmonary nodule is possible. A follow-up chest radiograph or CT is suggested to assess for resolution. Dictated by: CHELITA TEMPLE M.D. on 03/10/2018 at 15:37 Electronically approved by: CHELITA TEMPLE M.D. on 03/10/2018 at 15:37
[2018-03-10] MEDS ORDERED: HYDROXYZINE HCL25 MG PO (18:48)
[2018-03-10] MEDS ORDERED: CALCIUM 500+D1 EACH PO (18:48)
[2018-03-10] MEDS ORDERED: ADVAIR 250-501 EACH INH (18:48)
[2018-03-10] MEDS ORDERED: TRIAMTERENE-HCTZ1 EA PO (18:48)
[2018-03-10 19:55] LABS: CREATINE KINASE MB 4.6 ng/mL (0-5.0)
[2018-03-10 20:15] VITALS: BP 116/60
[2018-03-10 20:30] VITALS: BP 116/60
[2018-03-10] MEDS: LORAZEPAM 0.5 MG TAB PO PRN (21:51)
[2018-03-11] VITALS: BP 98/35
[2018-03-11] MEDS ORDERED: METHYLPREDNISOLONE SOD SUCC 40 MG/ML VIAL IV ONE (01:00)
[2018-03-11 01:35] VITALS: BP 101/50
--- NOTE | 2018-03-11 01:40 | Consultation ---
DATE OF CONSULTATION: March 10, 2018 PULMONARY MEDICINE CONSULT REFERRING PHYSICIAN: Dr. Rj Pagan REASON FOR ADMISSION: Respiratory failure. SUBJECTIVE: Ms. Pan is a pleasant 67-year-old female with acute respiratory failure. Patient well known to me as she follows in my clinic, and family healthcare providers. Patient presents with shortness of breath. Worsening times 8 days. She is winded just by going to the restroom recently. This is a pattern of worsening. Patient known to have exercise tolerance at baseline about 1 home distance. She is known to have COPD and recurrent urticaria. She has additional diagnosis of hereditary angioedema. She is chronically on Advair and Spiriva, although she was given a trial of changing to Trelegy Ellipta, which did not really help her condition chronically. She has not had the ability to make it to her pulmonary rehab. Patient with additional nebulizer at home and home oxygen. In the emergency room, she was given Solu-Medrol and bronchodilators. She was given some rescue BiPAP. ABG, 7.28/67/161, bicarbonate 32. She is admitted and I am contacted to help. PAST MEDICAL HISTORY: Recurrent hives and urticaria, hereditary angioedema, COPD, hyperlipidemia, hypertension, GERD, myelodysplastic syndrome. SURGICAL HISTORY: Tubal ligation, , pneumothorax with chest tube management, and cholecystectomy. MEDICATIONS: Medication list reviewed per electronic record. Hydroxyzine is one of the medicines she uses as well as topical medicines for the urticaria. Pulmonary medicines as above. ALLERGIES: CODEINE. SOCIAL HISTORY: Patient is born in [place]. No alcohol, no drugs. She smoked for about 20 years at one-half pack per day and she quit smoking 3 years ago. FAMILY HISTORY: Noncontributory. REVIEW OF SYSTEMS: Cannot get as she is on respiratory support device. OBJECTIVE: VITAL SIGNS: Afebrile, vital signs noted per electronic record. GENERAL: Mild increased work of breathing on BiPAP. However, she is accepting it well. HEENT: Normocephalic, atraumatic. NECK: Supple. Throat midline. LUNGS: Bilateral air entry is moderate, rare rhonchi, rare wheezes. CARDIOVASCULAR: S1, S2. No murmurs, rubs, or gallops. ABDOMEN: Soft, nontender. EXTREMITIES: No clubbing, no cyanosis, no edema. INTEGUMENT: No rash, no purpura. LABS: 4.6 potassium, 16 BUN, 1.2 creatinine. 13 white count, 34 hematocrit, 361,000 platelets. BNP level was 156. Albumin 3.9. Lactic acid was 10.9, normal. Urinalysis unremarkable. IMPRESSION AND PLAN: 1. Chronic obstructive pulmonary disease with exacerbation. 2. Former smoker, quit 3 years ago. 3. Hereditary angioedema. 4. History of recurrent hives and urticaria. 5. Hyperlipidemia. 6. Hypertension. 7. Gastroesophageal reflux disease. 8. Myelodysplastic syndrome, on outpatient Aranesp shots. 9. History of pneumothorax with chest tube management. 10. Abnormal chest radiography, abnormal nodule in left mid lung. Continue steroids. Continue bronchodilators. Continue oxygen and bilevel positive airway pressure supplement for now. I will likely order home noninvasive ventilator via mask interface. Pulmonary rehabilitation recommended after discharge. Antibiotics in the meantime are reasonable. I will review chest x-ray and consider computerized axial tomography scan. Deep venous thrombosis prophylaxis indicated. Thank you very much, Dr. Pagan for allowing me the chance to participate in care of Ms. Pan. Do not hesitate to contact me if I could help in any way. Job#: [id number]
[2018-03-11] MEDS: CEFTRIAXONE SOD 1 GM VIAL IV SCH (01:45)
[2018-03-11] MEDS: ALBUTEROL/IPRATROPIUM 3 ML NEB NEB SCH ×6 (03:10→23:00)
[2018-03-11 04:00] VITALS: BP 100/44
[2018-03-11 05:23] LABS: ALBUMIN 3.3 g/dL (3.5-5.0); ALBUMIN/GLOBULIN RATIO 1.4 (0.8-2.0); ANION GAP 14.9 mmol/L (8-16); CALCIUM 7.8 mg/dL (8.4-10.2); CREATININE, SERUM 1.69 mg/dL (0.57-1.11); MAGNESIUM 1.5 MG/DL (1.3-2.1); POTASSIUM 3.9 mmol/L (3.5-5.1)
--- NOTE | 2018-03-11 05:48 | Diagnostic Imaging Report ---
CHEST 2 VIEWS, Technique: CHEST 2 VIEWS Comparison: 03/10/2018, Clinical history: Pneumonia DISCUSSION: Multiple leads are seen overlying the patient. Stable cardiomediastinal silhouette with prominent andrés. Stable large lung volumes with bronchial thickening/interstitial prominence. Linear left midlung opacity, likely scarring. No effusion or pneumothorax. IMPRESSION: No significant interval change. Signed by: Dr Yenny Solano MD on 03/11/2018 5:45 AM
[2018-03-11 05:49] LABS: BASOPHILS % 0.2 % (0.0-1.0); HEMATOCRIT 28.3 % (34.2-44.1); HEMOGLOBIN 8.7 g/dL (12.0-16.0); LYMPHOCYTES # (AUTO) 0.8 (1.0-3.2); LYMPHOCYTES % 12.8 % (18.0-39.1); MEAN CORPUSCULAR HGB CONC 30.7 g/dL (31-35); MEAN CORPUSCULAR VOLUME 84.7 fL (81-99); MONOCYTES # (AUTO) 0.3 (0.2-0.8); NEUTROPHILS # (AUTO) 4.7 (2.1-6.9); NEUTROPHILS % 80.3 % (38.7-80.0); PLATELET COUNT 264 x10e3/uL (140-360); RED BLOOD COUNT 3.34 x10e6/uL (3.6-5.1); RED CELL DISTRIBUTION WIDTH 23.8 % (11.7-14.4)
[2018-03-11 06:16] LABS: ALBUMIN 3.3 g/dL (3.5-5.0); ANION GAP 16.9 mmol/L (8-16); BILIRUBIN,DIRECT 0.3 mg/dL (0.0-0.5); CALCIUM 7.8 mg/dL (8.4-10.2); CREATININE, SERUM 1.7 mg/dL (0.57-1.11); POTASSIUM 3.9 mmol/L (3.5-5.1)
[2018-03-11 07:50] LABS: ANISOCYTOSIS SLIG; ELLIPTOCYTE, RBC SLIGHT; HYPOCHROMASIA SLIGHT; POIKILOCYTOSIS SLIGHT; RBC MORPHOLOGY COMMENT NORMAL
[2018-03-11 07:55] LABS: PLATELET ESTIMATE ADEQUATE; PLATELET MORPHOLOGY COMMENT FEW LARGE
[2018-03-11] MEDS ORDERED: METHYLPREDNISOLONE SOD SUCC 40 MG/ML VIAL IV SCH (09:00)
[2018-03-11] MEDS: DOXYCYCLINE HYCLATE TABLET 100 MG TAB PO SCH ×2 (09:54→20:20)
--- NOTE | 2018-03-11 13:42 | Progress Note ---
DATE: March 11, 2018 PULMONARY MEDICINE PROGRESS NOTE SUBJECTIVE: Patient was seen and examined at bedside. She was taken off the BiPAP just before lunch and is feeling better. Some secretions present. Patient with stable creatinine and other vital issues. I discussed in the presence of her daughter, who is a nurse, and provided about 35 minutes of insight directly at bedside. Patient with significant problems expectorating secretions. Patient with retained secretions during this exacerbating that she could not expectorate. She has chronic daily sputum production for at least a couple of years that is present on a daily basis. She is now having these exacerbations and hospitalizations requiring antibiotics and even intubation previously. On review of previous chest imaging, a July 30, 2017 CT chest demonstrates the small right and trace left pleural effusions and some bibasilar atelectasis and scarring. There was some ground-glass opacity at that time. Due to previous pleurodesis and scarring, she has slightly thickened pleura as well as focal bronchiectasis leading into the area. Patient without means to use Acapella during these crises. Her has recently had thoracic surgery, is not able to do manual CPT. Bronchodilators and saline solutions are being tried but are not adequate in thinning out the secretions so that she could expectorate them. Patient in the end was not able to mobilize secretions due to the insufficient expiratory force, and she is a reasonable candidate for high-frequency chest wall oscillatory device. After discussing with them, they feel it is worth a try at this time for the bronchiectatic lung disease and daily production of secretions. Patient with recurrent hospitalizations already. Arterial blood gas analysis yesterday was 7.29/67/161 with 32 bicarbonate. There is evidence of acute and chronic respiratory failure secondary to COPD. To try to prevent hospitalizations and possibly to prolong her life, we recommend home noninvasive ventilator device. There are no alternatives available as BiPAP would not have sufficient alarm system that the patient would need. Furthermore, such a versatile device will allow the patient to use in many situations for her respiratory failure. REVIEW OF SYSTEMS: No headaches, no bleeding. OBJECTIVE VITAL SIGNS: Afebrile. Vital signs noted per electronic record. GENERALLY: No acute distress but looks weak, pale in bed. HEENT: Normocephalic, atraumatic. NECK: Supple. Throat midline. LUNGS: Bilateral air entry, a few rhonchi, rare wheeze. CARDIOVASCULAR: S1 and S2. No murmurs, rubs or gallops. ABDOMINAL: Soft, nontender. EXTREMITIES: No clubbing, no cyanosis, no edema. INTEGUMENT: No rash. No purpura. Mild redness around her nose and face where the BiPAP mask was being applied. LABS: Potassium 2.9, BUN 26, creatinine 1.7. White count 5.8, hematocrit 20. IMPRESSION AND PLAN 1. Acute respiratory failure, status post bilateral positive airway pressure salvage. 2. Current respiratory failure. 3. Chronic hypoxemia on home oxygen. 4. Chronic obstructive pulmonary disease with exacerbation. 5. Right lower lobe atelectasis versus pneumonia. 6. Anemia/myelodysplastic syndrome. 7. Recurrent hives and urticaria, IgE normal. 8. Hypogammaglobulinemia. 9. Hereditary angioedema. 10. Hyperlipidemia, hypertension, gastroesophageal reflux disease. 11. Decreased functionality, early dyspnea on exertion. 12. Bronchiectasis, focal. Related to previous pneumothorax/surgery and COPD. Steroids, wean. Bronchodilators, continue. Continue antibiotics empirically for possible pneumonia. I strongly recommend home noninvasive ventilator device, which I will order. It is reasonable to recommend high-frequency chest wall oscillatory device for the bronchiectasis and chronic daily sputum. Please check orders. Job#: [id number] [place] MARY
[2018-03-11] MEDS: ENOXAPARIN SOD INJ 40 MG/0.4 ML SYR SC SCH (18:30)
[2018-03-11] MEDS: LORAZEPAM 0.5 MG TAB PO PRN (19:14)
[2018-03-11 20:00] VITALS: BP 126/61
[2018-03-12] VITALS (10 sets, daily range): BP systolic 102–164; BP diastolic 49–77
[2018-03-12] MEDS: CEFTRIAXONE SOD 1 GM VIAL IV SCH (01:09)
[2018-03-12] MEDS: ALBUTEROL/IPRATROPIUM 3 ML NEB NEB SCH (03:30)
[2018-03-12 04:50] LABS: BASOPHILS % 0.2 % (0.0-1.0); EOSINOPHILS % 0.2 % (0.0-6.0); HEMATOCRIT 26.2 % (34.2-44.1); HEMOGLOBIN 8.2 g/dL (12.0-16.0); LYMPHOCYTES # (AUTO) 2.2 (1.0-3.2); LYMPHOCYTES % 25.5 % (18.0-39.1); MEAN CORPUSCULAR HEMOGLOBIN 26.5 pg (28-32); MEAN CORPUSCULAR HGB CONC 31.3 g/dL (31-35); MEAN CORPUSCULAR VOLUME 84.8 fL (81-99); MONOCYTES # (AUTO) 0.5 (0.2-0.8); MONOCYTES % 5.6 % (4.4-11.3); NEUTROPHILS # (AUTO) 5.8 (2.1-6.9); NEUTROPHILS % 66.2 % (38.7-80.0); PLATELET COUNT 239 x10e3/uL (140-360); RED BLOOD COUNT 3.09 x10e6/uL (3.6-5.1); RED CELL DISTRIBUTION WIDTH 24.4 % (11.7-14.4)
[2018-03-12 05:28] LABS: ANION GAP 11.8 mmol/L (8-16); CALCIUM 7.6 mg/dL (8.4-10.2); CREATININE, SERUM 1.35 mg/dL (0.57-1.11); POTASSIUM 3.8 mmol/L (3.5-5.1)
[2018-03-12] MEDS: LORAZEPAM 0.5 MG TAB PO PRN ×2 (06:01→16:45)
[2018-03-12] MEDS ORDERED: ALBUTEROL/IPRATROPIUM 3 ML NEB NEB PRN (06:15)
[2018-03-12 06:56] LABS: ANISOCYTOSIS MODERATE; LYMPHOCYTES % (MANUAL) 29 % (19-48); METAMYELOCYTES % (MANUAL) 1 % (0-0); MONOCYTES % (MANUAL) 5 % (3.4-9.0); NEUTROPHILS % (MANUAL) 65 % (40-74)
[2018-03-12 06:57] LABS: ELLIPTOCYTE, RBC MODERATE; HYPOCHROMASIA MODERATE; PLATELET ESTIMATE ADEQUATE; PLATELET MORPHOLOGY COMMENT RARE EDTA CLUMPING; RBC MORPHOLOGY COMMENT ABNORMAL; TARGET CELLS FEW
[2018-03-12] MEDS ORDERED: IPRATROPIUM BROMIDE 0.02% 2.5 ML NEB NEB PRN (08:00)
[2018-03-12] MEDS ORDERED: DILTIAZEM HCL 60 MG TAB PO NR ×2 (08:00→08:15)
[2018-03-12] MEDS: PREDNISONE 20 MG TAB PO SCH (08:27)
[2018-03-12] MEDS: DOXYCYCLINE HYCLATE TABLET 100 MG TAB PO SCH ×2 (08:27→21:21)
[2018-03-12] MEDS ORDERED: ONDANSETRON HCL INJ 2 MG/ML VIAL IV PRN (09:30)
[2018-03-12] MEDS: IPRATROPIUM BROMIDE 0.02% 2.5 ML NEB NEB SCH ×4 (11:00→23:30)
--- NOTE | 2018-03-12 14:15 | Progress Note ---
DATE: March 12, 2018 PULMONARY MEDICINE PROGRESS NOTE SUBJECTIVE: Ms. Pan was seen and examined at bedside. She has a panic attack towards the middle of the night. She received more bronchodilators and received some rescue BiPAP once again. Today, she was taken off once again to eat her meals where she is feeling better now. No worsened fevers, no worsened secretion that she is expectorating. REVIEW OF SYSTEMS: No headaches, no bleeding. OBJECTIVE VITAL SIGNS: Afebrile. Vital signs noted per electronic record. GENERAL: No acute distress, alert and calm. HEENT: Normocephalic, atraumatic. NECK: Supple. Throat midline. LUNGS: Bilateral air entry, few decreased breath sounds throughout, rales. CARDIOVASCULAR: S1 and S2. No murmurs, rubs or gallops. ABDOMEN: Soft, nontender. EXTREMITIES: No clubbing, no cyanosis. There is no edema. INTEGUMENT: No rash. No purpura. LABS: Potassium 3.8 and creatinine 1.3. Hematocrit 26. IMPRESSION 1. Acute respiratory failure, bilateral positive airway pressure salvage 2. Chronic respiratory failure, chronic hypoxemia. 3. Chronic obstructive pulmonary disease with exacerbation. 4. Possible pneumonia. 5. History of hereditary angioedema. 6. Chronic urticaria with hives, not otherwise specified reported. 7. Focal bronchiectasis PLAN 1. Continue the current treatment at this time. 2. I slightly increased the lorazepam so there is more availability. 3. Continue prednisone at this time. Bronchodilator had been downgraded slightly. 4. Continue intermittent BiPAP as needed. We have ordered home NIV as well as home based therapy. We will follow along closely. Job#: [id number] MANISH HERNANDEZ
[2018-03-12] MEDS: ENOXAPARIN SOD INJ 40 MG/0.4 ML SYR SC SCH (16:44)
[2018-03-12] MEDS: DILTIAZEM HCL 30 MG TAB PO SCH (21:20)
[2018-03-13] MEDS: LORAZEPAM 0.5 MG TAB PO PRN (00:17)
[2018-03-13] MEDS: CEFTRIAXONE SOD 1 GM VIAL IV SCH (00:17)
[2018-03-13 00:18] VITALS: BP 123/59
[2018-03-13 00:25] VITALS: BP 123/59
[2018-03-13] MEDS: IPRATROPIUM BROMIDE 0.02% 2.5 ML NEB NEB SCH ×4 (03:30→14:10)
[2018-03-13 05:00] VITALS: BP 114/45
[2018-03-13] MEDS: DOXYCYCLINE HYCLATE TABLET 100 MG TAB PO SCH (08:32)
[2018-03-13] MEDS: PREDNISONE 20 MG TAB PO SCH (08:32)
[2018-03-13 08:44] VITALS: BP 152/66
[2018-03-13] MEDS: DILTIAZEM HCL 30 MG TAB PO SCH ×3 (08:45→17:50)
[2018-03-13] MEDS ORDERED: SALMETEROL/FLUTICASONE 250/50 INH SCH (12:00)
[2018-03-13 12:04] VITALS: BP 119/61
[2018-03-13] MEDS ORDERED: PREDNISONE20 MG PO (12:07)
[2018-03-13] MEDS ORDERED: DOXYCYCLINE HY100 MG PO (12:13)
[2018-03-13] MEDS ORDERED: HYPER-SAL4 M1 IH (12:24)
[2018-03-13] MEDS ORDERED: NAC600 MG PO (12:24)
--- NOTE | 2018-03-13 13:25 | Progress Note ---
DATE: March 13, 2018 PULMONARY MEDICINE PROGRESS NOTE SUBJECTIVE: Ms. Pan was seen and examined at bedside. She feels better today. She did not need to use the BiPAP during last evening nor during the night. Patient is feeling more confident about her mobility. Patient needed mild escalation of breathing treatments and she want her Advair replenished while here in the hospital. REVIEW OF SYSTEMS: No headaches, no bleeding. OBJECTIVE VITAL SIGNS: Afebrile. Vital signs noted per electronic record. GENERAL: No acute distress, alert, calm. HEENT: Normocephalic, atraumatic. NECK: Supple. Throat midline. LUNGS: Bilateral air entry, decreased breath sounds, rare rhonchi. CARDIOVASCULAR: S1 and S2. No murmurs, rubs or gallops. ABDOMEN: Soft, nontender. EXTREMITIES: No clubbing, no cyanosis, there is no edema. INTEGUMENT: No rash. No purpura. IMPRESSION AND PLAN 1. Chronic obstructive pulmonary disease with exacerbation. 2. Acute respiratory failure, status post BiPAP. 3. Chronic respiratory failure. 4. Bronchiectatic lung disease. 5. History of hereditary angioedema. 6. Chronic urticaria and hives. Patient is able to walk to bedside commode and is exerting herself a lot for the mobility; however, it is up to her and her family if they want to go home at this point. From the breathing point of view, we wish to continue the steroid wean and taper. Bronchodilators will be continued. I am adding the home ventilator and hypersaline solution nebulized for the secretions. We will consider theophylline as outpatient, but she gets very symptomatic and tachycardic. Furthermore, I will review old cultures and see if she should be a candidate for outpatient azithromycin. I will give her N-acetylcysteine trial as well. We continue to hope to achieve the acquisition of the outpatient noninvasive ventilator. She is clearly hypercapnic. It is clear that BiPAP cannot guarantee volume requirements. She requires frequent durations of support when exerting herself and therefore intermittent usage of a device such as bilevel positive airway pressure is not adequate. She needs continuous home ventilator to be present for emergencies. It is known that the patient can quickly deteriorate without having such respiratory support devices and the fact that removal or lack of access to such a ventilator device may cause serious harm to the patient and lead to hospital readmissions and exacerbations of her condition. Job#: [id number] VINCENT
[2018-03-13 16:56] VITALS: BP 117/72
--- NOTE | 2018-03-13 16:59 | Discharge Summary ---
FINAL DIAGNOSIS: Acute respiratory failure. SECONDARY DIAGNOSES 1. Chronic respiratory failure with both chronic obstructive pulmonary disease and bronchiectasis. 2. C1 esterase inhibitor deficiency. 3. Acute renal failure, resolving. 4. Hypertension. CONSULTANTS: Dr. Lopez. PROCEDURES/STUDIES PERFORMED: BiPAP. HISTORY: Per H and P. HOSPITAL COURSE: The patient was admitted. The patient improved with BiPAP, steroids, antibiotics, and aggressive nebulizer treatment. The patient's metoprolol was switched to Cardizem. She received empiric IV Rocephin and p.o. doxycycline. The patient will go home on p.o. doxycycline and also prednisone taper. She received Lovenox for DVT prophylaxis. The patient was seen and examined today. It took 32 minutes total to discharge this patient. CONDITION ON DISCHARGE: Improved. DISCHARGE MEDICATIONS: Please see medication reconciliation form. RUTH MILLIGAN M.D. Job#: [id number] IN
[2018-03-13] MEDS: ENOXAPARIN SOD INJ 40 MG/0.4 ML SYR SC SCH (17:45)
[2018-03-14] MEDS ORDERED: PREDNISONE 20 MG TAB PO SCH (09:00)
== END 2018-03-13 17:50 | disposition home or self-care (01) | DRG 189 ==
LOC: ER 11:00 → ERHOLD 16:36 → IMCU 19:57
PROVIDERS: ADMIT Internal Medicine; ATTEND Internal Medicine
PROC: 5A09357 Assistance with Respiratory Ventilation, Less than 24 Consecutive Hours, Continuous Positive Airway Pressure (ICD-10-PCS; principal; 2018-03-10)
DX: J96.22 Acute and chronic respiratory failure with hypercapnia (principal); J18.9 Pneumonia, unspecified organism; J44.1 Chronic obstructive pulmonary disease with (acute) exacerbation; D80.1 Nonfamilial hypogammaglobulinemia; N17.9 Acute kidney failure, unspecified; J96.21 Acute and chronic respiratory failure with hypoxia; I10 Essential (primary) hypertension; D84.1 Defects in the complement system; Z87.891 Personal history of nicotine dependence; E78.5 Hyperlipidemia, unspecified; K21.9 Gastro-esophageal reflux disease without esophagitis; D46.9 Myelodysplastic syndrome, unspecified; Z83.3 Family history of diabetes mellitus; Z82.49 Family history of ischemic heart disease and other diseases of the circulatory system; Z88.5 Allergy status to narcotic agent; R91.8 Other nonspecific abnormal finding of lung field; Z99.81 Dependence on supplemental oxygen; F41.0 Panic disorder [episodic paroxysmal anxiety]
CPT/HCPCS: 36415; 36600; 51700; 71045; 71046; 80048; 80053; 80076; 81001; 82550; 82553; 82805; 82948; 83605; 83735; 83880; 84484; 85025; 85610; 85651; 85730; 87040; 93005; 94640; 94660; 97139; 99285; J0696; J1650; J2060; J2405; J2920

== ENCOUNTER 2018-04-12 21:59 | Inpatient (IN) | payer MEDICARE ==
[~2018-04-12] VITALS: Ht 165.1 cm; Wt 75.3 kg
[~2018-04-12 21:59] MED LIST changes: +CALCIUM 500+D1 EACH PO; +DOXYCYCLINE HY100 MG PO; +HYDROXYZINE HCL25 MG PO; +HYPER-SAL4 M1 IH; +NAC600 MG PO; +TRIAMTERENE-HCTZ1 EA PO
[2018-04-12] MEDS ORDERED: PROPOFOL IV EMULSION 10MG/ML 100 ML ONE (22:12)
[2018-04-12] MEDS: PROPOFOL IV EMULSION 10MG/ML 100 ML IV PRN (22:13)
[2018-04-12 22:26] LABS: BASOPHILS # (AUTO) 0.1 (0.0-0.1); BASOPHILS % 0.5 % (0.0-1.0); EOSINOPHILS # (AUTO) 0.2 (0.0-0.4); EOSINOPHILS % 1.2 % (0.0-6.0); HEMATOCRIT 30.8 % (34.2-44.1); HEMOGLOBIN 8.9 g/dL (12.0-16.0); LYMPHOCYTES # (AUTO) 10.9 (1.0-3.2); LYMPHOCYTES % 61.2 % (18.0-39.1); MEAN CORPUSCULAR HEMOGLOBIN 26.4 pg (28-32); MEAN CORPUSCULAR HGB CONC 28.9 g/dL (31-35); MEAN CORPUSCULAR VOLUME 91.4 fL (81-99); MONOCYTES % 5.5 % (4.4-11.3); NEUTROPHILS # (AUTO) 5.5 (2.1-6.9); PLATELET COUNT 378 x10e3/uL (140-360); RED BLOOD COUNT 3.37 x10e6/uL (3.6-5.1); RED CELL DISTRIBUTION WIDTH 24.7 % (11.7-14.4)
[2018-04-12 22:34] LABS: PROTHROMBIN TIME 14.1 seconds (11.9-14.5)
[2018-04-12 22:35] LABS: PARTIAL THROMBOPLASTIN TIME 25.5 seconds (23.8-35.5)
[2018-04-12] MEDS ORDERED: SODIUM CHLORIDE 0.9% 1000ML 1,000 ML IV STA ×2 (22:41)
[2018-04-12] MEDS ORDERED: PANTOPRAZOLE 40 MG 10ML VIAL IV STA (22:41)
[2018-04-12 22:44] LABS: ALBUMIN 3.6 g/dL (3.5-5.0); ALBUMIN/GLOBULIN RATIO 1.5 (0.8-2.0); ANION GAP 12.7 mmol/L (8-16); MAGNESIUM 1.5 MG/DL (1.3-2.1); POTASSIUM 4.7 mmol/L (3.5-5.1)
[2018-04-12 22:44] LABS: CREATINE KINASE 42 IU/L (29-168)
[2018-04-12] MEDS ORDERED: VANCOMYCIN 1GM/NS 250 ML 250 ML ONE (22:49)
[2018-04-12] MEDS ORDERED: CEFEPIME HCL 2 GM VIAL IV SCH (23:00)
[2018-04-12] MEDS ORDERED: VANCOMYCIN 1GM/NS 250 ML 250 ML IV ONE (23:00)
[2018-04-12] MEDS ORDERED: PROPOFOL IV EMULSION 10 MG/ML 50 ML VIAL IV PRN (23:00)
[2018-04-12 23:06] LABS: CREATININE, SERUM 1.8 mg/dL (0.57-1.11)
[2018-04-12 23:06] LABS: ABG HCO3 26 mmol/L (23-28); ABG PCO2 74 mmHg (41-51); ABG PH 7.15 (7.31-7.41); ABG PO2 195 mmHg (80-105)
--- NOTE | 2018-04-12 23:06 | Diagnostic Imaging Report ---
EXAMINATION: CHEST SINGLE (PORTABLE) INDICATION: Post intubation COMPARISON: 03/11/2018 FINDINGS: TUBES and LINES: Endotracheal tube is now visualized with tip 3.4 cm above the eugene LUNGS: Lungs are well inflated. Multifocal areas of airspace disease noted in the right upper lobe and bilateral lower lobes . PLEURA: No pleural effusion or pneumothorax. HEART AND MEDIASTINUM: The cardiomediastinal silhouette is unremarkable. There are atherosclerotic calcifications within the aorta. BONES AND SOFT TISSUES: No acute osseous lesion. Soft tissues are unremarkable. UPPER ABDOMEN: No free air under the diaphragm. IMPRESSION: Findings are suspicious for aspiration versus multifocal pneumonia predominantly involving the right lower lobe Signed by: Dr. Rolando Villegas M.D. on 04/12/2018 11:02 PM
[2018-04-12 23:57] LABS: CLARITY,URINE CLOUDY (CLEAR); COLOR,URINE YELLOW (YELLOW); LEUKOCYTE ESTERASE ,URINE NEGATIVE (NEGATIVE); NITRITE,URINE NEGATIVE (NEGATIVE)
[2018-04-12 23:58] LABS: BILIRUBIN,URINE NEGATIVE (NEGATIVE); KETONES,URINE NEGATIVE (NEGATIVE); PROTEIN,URINE DIPSTICK 3+ (NEGATIVE); URINE UROBILINOGEN 0.2 mg/dL (0.2 - 1)
[2018-04-13] VITALS (77 sets, daily range): BP systolic 77–133; BP diastolic 32–72
[2018-04-13 00:10] LABS: AMORPHOUS SEDIMENT,URINE FEW (FEW); BACTERIA,URINE MANY /HPF; EPITHELIAL CELLS,URINE FEW /LPF; MUCUS,URINE FEW (RARE); RBC,URINE 21-50 /HPF (0-5); TRANSITIONAL EPI CELLS,URINE MODERATE; WBC,URINE (MAN) 21-50 /HPF (0-5)
[2018-04-13] MEDS: ALBUTEROL SULF 0.083% NEB SOLN 3 ML NEB NEB SCH ×6 (02:00→23:30)
[2018-04-13] MEDS: IPRATROPIUM BROMIDE 0.02% 2.5 ML NEB NEB SCH ×5 (02:00→23:30)
[2018-04-13] MEDS: PROPOFOL IV EMULSION 10MG/ML 100 ML IV PRN ×2 (03:00→09:37)
[2018-04-13] MEDS: SODIUM CHLORIDE 0.9% 1000ML 1,000 ML IV SCH ×3 (03:31→20:51)
[2018-04-13 05:42] LABS: CREATINE KINASE MB 2.3 ng/mL (0-5.0)
[2018-04-13] MEDS ORDERED: CLINDAMYCIN 600MG / 50ML 50 ML IV SCH ×3 (06:00→08:00)
[2018-04-13 07:15] LABS: BASOPHILS % 0.2 % (0.0-1.0); HEMATOCRIT 24.8 % (34.2-44.1); HEMOGLOBIN 7.3 g/dL (12.0-16.0); LYMPHOCYTES # (AUTO) 0.7 (1.0-3.2); MEAN CORPUSCULAR HEMOGLOBIN 26.3 pg (28-32); MEAN CORPUSCULAR HGB CONC 29.4 g/dL (31-35); MEAN CORPUSCULAR VOLUME 89.2 fL (81-99); MONOCYTES # (AUTO) 0.1 (0.2-0.8); NEUTROPHILS # (AUTO) 9.9 (2.1-6.9); NEUTROPHILS % 92.1 % (38.7-80.0); PLATELET COUNT 227 x10e3/uL (140-360); RED BLOOD COUNT 2.78 x10e6/uL (3.6-5.1); RED CELL DISTRIBUTION WIDTH 24.5 % (11.7-14.4)
[2018-04-13 08:07] LABS: ABG PCO2 46 mmHg (41-51); ABG PH 7.31 (7.31-7.41); ABG PO2 155 mmHg (80-105)
[2018-04-13 08:08] LABS: ABG HCO3 23 mmol/L (23-28)
[2018-04-13 08:27] LABS: ALBUMIN 3.3 g/dL (3.5-5.0); ALBUMIN/GLOBULIN RATIO 1.8 (0.8-2.0); CREATININE, SERUM 1.47 mg/dL (0.57-1.11); POTASSIUM 4.2 mmol/L (3.5-5.1)
[2018-04-13 08:51] LABS: ANION GAP 5.2 mmol/L (8-16); CALCIUM 6.5 mg/dL (8.4-10.2)
[2018-04-13] MEDS ORDERED: PANTOPRAZOLE 40 MG 10ML VIAL IV SCH (09:00)
[2018-04-13] MEDS: DEXMEDETOMIDINE HCL 200 MCG in SODIUM CHLORIDE 0.9% 50ML 48 ML IV PRN ×2 (10:10→16:38)
[2018-04-13 10:53] LABS: BAND NEUTROPHILS % (MANUAL) 6 %; LYMPHOCYTES % (MANUAL) 5 % (19-48); MONOCYTES % (MANUAL) 1 % (3.4-9.0); NEUTROPHILS % (MANUAL) 86 % (40-74)
[2018-04-13 10:54] LABS: ANISOCYTOSIS SLIGHT; ELLIPTOCYTE, RBC SLIGHT; HYPOCHROMASIA MODERATE; PLATELET ESTIMATE ADEQUATE; PLATELET MORPHOLOGY COMMENT NORMAL; RBC MORPHOLOGY COMMENT ABNORMAL
[2018-04-13 10:55] LABS: POIKILOCYTOSIS SLIGHT
[2018-04-13 10:58] LABS: HEMATOCRIT 25.2 % (34.2-44.1); HEMOGLOBIN 7.6 g/dL (12.0-16.0)
[2018-04-13 11:25] LABS: CREATINE KINASE MB 2.3 ng/mL (0-5.0)
[2018-04-13] MEDS ORDERED: CALCIUM GLUCONATE 10% INJ 4.65 MEQ in SODIUM CHLORIDE 0.9% 50ML 50 ML IV ONE (11:45)
[2018-04-13] MEDS ORDERED: METHYLPREDNISOLONE SOD SUCC 40 MG/ML VIAL IV SCH ×2 (12:00)
[2018-04-13] MEDS ORDERED: [UNRECOGNIZED DRUG - OTHER] SC SCH (16:00)
[2018-04-13] MEDS ORDERED: DARBEPOETIN ALFA SC SCH (16:00)
[2018-04-13] MEDS: PIPER-TAZ 3.375 GM / NS 50ML IV SCH ×2 (16:36→23:00)
[2018-04-13] MEDS ORDERED: METHYLPREDNISOLONE SOD SUCC 40 MG/ML VIAL IV NR (18:00)
[2018-04-13 18:31] LABS: ABG HCO3 22 mmol/L (23-28); ABG PCO2 41 mmHg (41-51); ABG PH 7.35 (7.31-7.41); ABG PO2 126 mmHg (80-105)
[2018-04-13] MEDS ORDERED: SUCCINYLCHOLINE CHLORIDE 20 MG/ML 10ML VIAL ONE (18:39)
[2018-04-13] MEDS ORDERED: ETOMIDATE 40 MG/ 20ML VIAL IV ONE (18:39)
--- NOTE | 2018-04-13 18:55 | Consultation ---
DATE OF CONSULTATION: April 13, 2018 PULMONARY MEDICINE CONSULT REFERRING PHYSICIAN: Dr. Pagan. REASON FOR REFERRAL: Acute respiratory failure. HISTORY: Ms. Pan is a pleasant 68-year-old female with acute respiratory failure. Patient with onset x1 day. Shortness of breath noted. Patient was not able to catch her breath. She was on her home NIV device, and alarms were going off. came in the room and called EMS to bring the patient here. When the patient came to the emergency room, her oxygen saturation was 90% but she had high work of breathing. She asked to be intubated. She was transferred to ICU for further care. Chest x-ray showed scant pulmonary opacities. Patient with known COPD, hereditary angioedema, among other disorders. Patient has recurrent hives and urticaria. Baseline functional status is she can walk a couple of rooms' distance but then gets dyspneic. She lives at home with family. PAST MEDICAL HISTORY: Recurrent hives and urticaria, hereditary angioedema, COPD, hyperlipidemia, hypertension, GERD, myelodysplastic syndrome, tubal ligation, , pneumothorax with chest tube management a long time ago, cholecystectomy. MEDICATION: Medication list reviewed per electronic record. ALLERGIES: CODEINE. SOCIAL HISTORY: She was born in [place]. No alcohol, no drugs. She smoked for about 20 years at 1/2 pack per day, and she quit smoking 3 years ago. FAMILY HISTORY: Noncontributory. REVIEW OF SYSTEMS: Cannot get reliably as she is on intubated status. PHYSICAL EXAMINATION VITAL SIGNS: Afebrile. Vital signs noted per electronic record, stable. HEENT: Normocephalic, atraumatic. GENERALLY: On ventilator. She awakens. NECK: Supple. Throat midline. LUNGS: Bilateral air entry, limited, rare rales. CARDIOVASCULAR: S1 and S2. No murmurs, rubs or gallops. ABDOMINAL: Soft, nontender. EXTREMITIES: No clubbing, no cyanosis, no edema. INTEGUMENT: No rash, no purpura. LABS: Potassium 4.2, BUN 29, creatinine 1.5. White count 11, hematocrit 25, platelets 225. IMPRESSION AND PLAN 1. Chronic obstructive pulmonary disease with exacerbation. 2. Acute respiratory failure, intubated. 3. Former smoker, quit 3 years ago. 4. Hereditary angioedema, no evidence of activity clinically. 5. History of recurrent hives and urticaria. 6. Hyperlipidemia, hypertension, gastroesophageal reflux disease, myelodysplastic syndrome on Aranesp. 7. History of pneumothorax and chest tube long ago. 8. Abnormal chest radiography, abnormal lung nodule left mid lung. Continue close followup. She is intubated now. Will consider extubating if she is doing better. We would extubate to either high-flow nasal cannula or BiPAP. Continue steroids. Antibiotics and bronchodilators. Thank you very much, Dr. Pagan, for this consult. Greater than 30 minutes of direct care today, direct management and supervision of wean. Will follow along closely. Job#: [id number] EV
[2018-04-13] MEDS: AZITHROMYCIN 500MG/NS 250 ML 250 ML IV SCH (19:16)
[2018-04-13] MEDS: FAMOTIDINE 20 MG/2 ML VIAL IV SCH (20:51)
[2018-04-13] MEDS: METHYLPREDNISOLONE SOD SUCC 40 MG/ML VIAL IV SCH (20:51)
[2018-04-14] VITALS (35 sets, daily range): BP systolic 95–159; BP diastolic 33–82
[2018-04-14] MEDS ORDERED: CLINDAMYCIN 600MG / 50ML 50 ML IV SCH
[2018-04-14] MEDS: ALBUTEROL SULF 0.083% NEB SOLN 3 ML NEB NEB SCH ×5 (03:30→23:30)
[2018-04-14] MEDS: IPRATROPIUM BROMIDE 0.02% 2.5 ML NEB NEB SCH ×6 (03:30→23:30)
--- NOTE | 2018-04-14 05:31 | Diagnostic Imaging Report ---
EXAM: CHEST SINGLE (PORTABLE), AP 1 view INDICATION: Pneumonia COMPARISON: AP view of the chest April 12, 2018 FINDINGS: LINES/TUBES: Interval removal of endotracheal tube. LUNGS: Improved aeration of the lung bases. PLEURA: No effusions or pneumothorax. HEART AND MEDIASTINUM: Normal size and contour. BONES AND SOFT TISSUES: No acute findings. IMPRESSION: Improved aeration of the lung bases. Signed by: Dr. Shanda Ayala M.D. on 04/14/2018 5:28 AM
[2018-04-14 05:44] LABS: HEMATOCRIT 23.2 % (34.2-44.1); LYMPHOCYTES # (AUTO) 0.5 (1.0-3.2); LYMPHOCYTES % 10.8 % (18.0-39.1); MEAN CORPUSCULAR HEMOGLOBIN 25.9 pg (28-32); MEAN CORPUSCULAR HGB CONC 29.7 g/dL (31-35); MEAN CORPUSCULAR VOLUME 87.2 fL (81-99); MONOCYTES # (AUTO) 0.2 (0.2-0.8); MONOCYTES % 3.7 % (4.4-11.3); NEUTROPHILS # (AUTO) 3.9 (2.1-6.9); NEUTROPHILS % 84.2 % (38.7-80.0); PLATELET COUNT 174 x10e3/uL (140-360); RED BLOOD COUNT 2.66 x10e6/uL (3.6-5.1); RED CELL DISTRIBUTION WIDTH 24.6 % (11.7-14.4)
[2018-04-14 06:26] LABS: HEMOGLOBIN 6.9 g/dL (12.0-16.0)
[2018-04-14] MEDS: SODIUM CHLORIDE 0.9% 1000ML 1,000 ML IV SCH ×2 (06:47→17:21)
[2018-04-14] MEDS: PIPER-TAZ 3.375 GM / NS 50ML IV SCH ×3 (06:47→22:20)
[2018-04-14] MEDS ORDERED: SODIUM CHLORIDE 0.9% 250ML 250 ML IV ONE (07:00)
[2018-04-14 07:26] LABS: CREATININE, SERUM 1.02 mg/dL (0.57-1.11); POTASSIUM 3.7 mmol/L (3.5-5.1)
[2018-04-14] MEDS: METOPROLOL TARTRATE 25 MG TAB PO SCH ×2 (08:40→17:41)
[2018-04-14 08:45] LABS: ANION GAP 20.7 mmol/L (8-16)
[2018-04-14 08:46] LABS: CALCIUM 6.4 mg/dL (8.4-10.2)
[2018-04-14] MEDS ORDERED: PANTOPRAZOLE 40 MG 10ML VIAL IV SCH (09:00)
[2018-04-14] MEDS ORDERED: CALCIUM GLUCONATE 10% INJ 4.65 MEQ in SODIUM CHLORIDE 0.9% 50ML 50 ML IV ONE ×2 (09:15→10:00)
[2018-04-14] MEDS ORDERED: [UNRECOGNIZED DRUG - OTHER] SC SCH (10:00)
[2018-04-14] MEDS: METHYLPREDNISOLONE SOD SUCC 40 MG/ML VIAL IV SCH ×2 (10:00→22:20)
[2018-04-14] MEDS: FAMOTIDINE 20 MG/2 ML VIAL IV SCH (10:00)
[2018-04-14] MEDS ORDERED: DARBEPOETIN ALFA SC SCH (10:00)
--- NOTE | 2018-04-14 10:48 | Progress Note ---
DATE: April 14, 2018 PULMONARY CRITICAL CARE PROGRESS NOTE HISTORY OF PRESENT ILLNESS: The patient was extubated. She is receiving packed red blood cells for a hemoglobin of 6.9. There is no history of hematochezia or hematemesis. PHYSICAL EXAMINATION VITALS: The patient is saturating 99% on 3 L. The blood pressure is 97/50 and the pulse is 87. Saturation is 100%. She is afebrile. HEENT: Shows no facial swelling or erythema. The nasal mucosa is normal. The oropharynx is normal. LYMPHATICS: Shows no submandibular, cervical or supraclavicular adenopathy. CARDIAC: Reveals a regular rate and rhythm with a normal S1 and S2. There are no murmurs or rubs. LUNGS: Auscultation of the lungs reveals clear breath sounds bilaterally. There is no wheezing. ABDOMEN: Soft and nontender. There is no rebound or guarding. EXTREMITIES: Shows no leg edema or calf tenderness. There is no cyanosis or clubbing. RADIOGRAPHIC DATA: Chest x-ray from yesterday shows improved aeration of the lungs. LABORATORY DATA: The hemoglobin is 6.9 and the platelet count is 174,000. The white blood cell count is 4.6. The BUN to creatinine ratio is 26 to 1. The calcium is low at 6.4 and the albumin is 3.3. The ionized calcium is 0.9. The patient also has a low carbon dioxide of 14 with an increased anion gap. IMPRESSION 1. Xnqqt-nd-[id number] respiratory failure. 2. Chronic obstructive pulmonary disease requiring a noninvasive ventilator at home. 3. Anemia secondary to chronic blood loss. 4. Myelodysplastic syndrome. 5. Hypocalcemia. 6. History of hereditary angioedema. PLAN 1. Continue packed red blood cells. 2. Repeat electrolytes along with a lactic acid because of the increased anion gap. 3. Replace calcium. 4. Consult with hematology regarding the patient's Aranesp therapy. Job#: [id number] DEANNA
[2018-04-14 13:19] LABS: BAND NEUTROPHILS % (MANUAL) 2 %; HYPOCHROMASIA MODERATE; LYMPHOCYTES % (MANUAL) 14 % (19-48); METAMYELOCYTES % (MANUAL) 2 % (0-0); MONOCYTES % (MANUAL) 3 % (3.4-9.0); NEUTROPHILS % (MANUAL) 79 % (40-74)
[2018-04-14 13:20] LABS: ANISOCYTOSIS SLIGHT; PLATELET ESTIMATE ADEQUATE; PLATELET MORPHOLOGY COMMENT FEW LARGE; POIKILOCYTOSIS SLIGHT; RBC MORPHOLOGY COMMENT ABNORMAL
[2018-04-14] MEDS ORDERED: LORAZEPAM 0.5 MG TAB PO PRN (14:30)
[2018-04-14 15:34] LABS: ALBUMIN 3.7 g/dL (3.5-5.0); ALBUMIN/GLOBULIN RATIO 1.7 (0.8-2.0); ANION GAP 16.3 mmol/L (8-16); CALCIUM 7.6 mg/dL (8.4-10.2); CREATININE, SERUM 0.96 mg/dL (0.57-1.11); POTASSIUM 4.3 mmol/L (3.5-5.1)
[2018-04-14] MEDS ORDERED: ETOMIDATE 2 MG/ML 10 ML INJ IV ONE (19:29)
[2018-04-14] MEDS ORDERED: SUCCINYLCHOLINE CHLORIDE 20 MG/ML 10ML VIAL ONE (19:29)
[2018-04-14] MEDS: AZITHROMYCIN 500MG/NS 250 ML 250 ML IV SCH (22:20)
[2018-04-14] MEDS ORDERED: ONDANSETRON HCL INJ 2 MG/ML VIAL IV PRN (22:30)
[2018-04-15] VITALS (88 sets, daily range): BP systolic 92–168; BP diastolic 40–97
[2018-04-15] MEDS: ALBUTEROL SULF 0.083% NEB SOLN 3 ML NEB NEB SCH ×5 (03:00→18:58)
[2018-04-15] MEDS: IPRATROPIUM BROMIDE 0.02% 2.5 ML NEB NEB SCH ×5 (03:00→18:58)
[2018-04-15] MEDS ORDERED: LORAZEPAM INJ 2 MG/ML VIAL IV ONE (04:00)
[2018-04-15 05:43] LABS: ALBUMIN/GLOBULIN RATIO 1.7 (0.8-2.0); CALCIUM 7.4 mg/dL (8.4-10.2); CREATININE, SERUM 1.04 mg/dL (0.57-1.11)
[2018-04-15] MEDS: PIPER-TAZ 3.375 GM / NS 50ML IV SCH ×3 (05:47→22:00)
--- NOTE | 2018-04-15 06:41 | Diagnostic Imaging Report ---
EXAM: CHEST SINGLE (PORTABLE), AP 1 view INDICATION: Respiratory failure COMPARISON: AP view of the chest April 14, 2018 FINDINGS: LINES/TUBES: None LUNGS: Stable interstitial thickening PLEURA: No effusions or pneumothorax. HEART AND MEDIASTINUM: Stable appearance BONES AND SOFT TISSUES: No acute findings. IMPRESSION: No interval change Signed by: Dr. Shanda Ayala M.D. on 04/15/2018 6:38 AM
[2018-04-15 06:55] LABS: BASOPHILS # (AUTO) 0.1 (0.0-0.1); BASOPHILS % 0.4 % (0.0-1.0); HEMATOCRIT 33.9 % (34.2-44.1); HEMOGLOBIN 9.9 g/dL (12.0-16.0); MEAN CORPUSCULAR HEMOGLOBIN 26.4 pg (28-32); MEAN CORPUSCULAR HGB CONC 29.2 g/dL (31-35); MEAN CORPUSCULAR VOLUME 90.4 fL (81-99); MONOCYTES # (AUTO) 1.3 (0.2-0.8); MONOCYTES % 5.3 % (4.4-11.3); NEUTROPHILS # (AUTO) 19.8 (2.1-6.9); PLATELET COUNT 287 x10e3/uL (140-360); RED BLOOD COUNT 3.75 x10e6/uL (3.6-5.1); RED CELL DISTRIBUTION WIDTH 23.4 % (11.7-14.4)
[2018-04-15] MEDS ORDERED: METHYLPREDNISOLONE SOD SUCC 125 MG/2ML VIAL IV ONE (07:30)
[2018-04-15] MEDS: PROPOFOL IV EMULSION 10MG/ML 100 ML IV PRN (08:25)
[2018-04-15] MEDS ORDERED: DEXMEDETOMIDINE HCL 200 MCG in SODIUM CHLORIDE 0.9% 50ML 48 ML IV PRN (08:45)
--- NOTE | 2018-04-15 08:45 | Diagnostic Imaging Report ---
PROCEDURE: A single AP view of the chest. COMPARISON: Patients [facility], DX, CHEST SINGLE (PORTABLE), 04/15/2018, 5:45. INDICATIONS: ETT PLACEMENT FINDINGS: Lines/tubes: Endotracheal tube has been placed with its tip at the level of the clavicles. Lungs: Moderate pulmonary edema. Pleura: There is no pleural effusion or pneumothorax. Heart and mediastinum: The heart and the mediastinum are unremarkable. Calcification within the aortic knob. Bones: No acute bony abnormality. IMPRESSION: 1. Endotracheal tube in appropriate location. 2. Moderate pulmonary edema. Davonte Sarmiento D.O. Dictated by: Davonte Sarmiento D.O. on 04/15/2018 at 8:53 Electronically approved by: Davonte Sarmiento D.O. on 04/15/2018 at 8:53
[2018-04-15] MEDS: METOPROLOL TARTRATE 25 MG TAB PO SCH ×2 (09:00→17:00)
[2018-04-15] MEDS ORDERED: VANCOMYCIN HCL 1.25 GM in SODIUM CHLORIDE 0.9% 250ML 300 ML IV SCH (09:00)
[2018-04-15 09:28] LABS: ABG HCO3 24 mmol/L (23-28); ABG PCO2 89 mmHg (41-51); ABG PH 7.04 (7.31-7.41); ABG PO2 148 mmHg (80-105)
[2018-04-15] MEDS: METHYLPREDNISOLONE SOD SUCC 40 MG/ML VIAL IV SCH ×2 (09:54→22:00)
[2018-04-15] MEDS: FAMOTIDINE 20 MG/2 ML VIAL IV SCH (09:54)
[2018-04-15] MEDS: SODIUM CHLORIDE 0.9% 1000ML 1,000 ML IV SCH (09:54)
[2018-04-15] MEDS: VANCOMYCIN HCL 1.25 GM in SODIUM CHLORIDE 0.9% 250ML 250 ML IV SCH (10:01)
[2018-04-15] MEDS: DEXMEDETOMIDINE 200MCG/NS 50ML 50 ML IV SCH ×2 (11:57→23:00)
--- NOTE | 2018-04-15 12:37 | Diagnostic Imaging Report ---
EXAM: XR CHEST 1 VIEW DATE: 04/15/2018 11:57 AM INDICATION: PICC line placement COMPARISON: 04/15/2018 FINDINGS: Lines and Tubes: ET tube tip above eugene and NG tube with inferior extent not visualized. Right PICC with tip overlying SVC, new. Heart and Mediastinum: Heart not enlarged. Prominence of the hilum. Lungs and Pleura: Evaluation limited by underpenetration. Mild scattered airspace opacities. Bones and Soft Tissues: No acute findings. IMPRESSION: 1. Right PICC and ET tube as above. 2. Hilar prominence with mild interstitial prominence suggesting edema. Follow-up recommended. Signed by: Dr. Toño Matos MD on 04/15/2018 12:34 PM
--- NOTE | 2018-04-15 12:38 | Diagnostic Imaging Report ---
EXAM: ABDOMEN-1VIEW (KUB) DATE: 04/15/2018 11:57 AM INDICATION: NG tube placement COMPARISON: None FINDINGS: NG tube present with sideholes below GE junction. Loops of small bowel left lower quadrant upper limits of normal. Vertebroplasty changes noted. IMPRESSION: NG tube as above. Nonspecific borderline loops of small bowel left lower quadrant. Signed by: Dr. Toño Matos MD on 04/15/2018 12:34 PM
[2018-04-15] MEDS ORDERED: FUROSEMIDE INJ 10 MG/ML 4 ML VIAL IV ONE (14:30)
[2018-04-15 15:38] LABS: ABG HCO3 22 mmol/L (23-28); ABG PCO2 49 mmHg (41-51); ABG PH 7.26 (7.31-7.41); ABG PO2 220 mmHg (80-105)
--- NOTE | 2018-04-15 15:51 | Consultation ---
DATE: April 15, 2018 PULMONARY/CRITICAL CARE PROGRESS NOTE HISTORY OF PRESENT ILLNESS: The patient had acute cardiorespiratory distress earlier this morning, around 7 a.m. A rapid response was called and she was intubated. She was transferred back to the intensive care unit on a mechanical ventilator. She was initially on propofol, but was agitated and Precedex was started in addition to the propofol. Prior to the event, the patient did not have any chest pain or fevers. PHYSICAL EXAMINATION: GENERAL: The patient is now afebrile. She is on an assist control mode of ventilation on at a rate of 15 with a tidal volume of 450. HEENT: Examination shows no facial swelling or erythema. There is an oral endotracheal tube in place. CARDIAC: Regular rate and rhythm with normal S1 and S2. There are no murmurs or rubs. LUNGS: Reveals prolonged expiratory phase. There is no wheezing. ABDOMEN: Is soft and nontender. There is no rebound or guarding. EXTREMITIES: Examination shows no leg edema or calf tenderness. There is no cyanosis or clubbing. SKIN: Examination again shows some erythema and urticarial like reaction on her chest. LABORATORY DATA: Blood gas was 7.04, 89 and 148 with a bicarb of 24. The white blood cell count is 24.5 with a hemoglobin 9.9. Platelet count 287,000. The BUN to creatinine ratio is 30 to 1.04. The bicarb is 21 with a chloride of 109 and potassium of 5. Total bilirubin is 1.4. Total protein is 6.4 and albumin is 4. IMPRESSION 1. Ibrov-lj-zfabqxx respiratory failure. 2. Chronic obstructive pulmonary disease. 3. Hereditary angioedema. 4. Mild dysplastic syndrome. 5. Hypocalcemia. 6. Leukocytosis. PLAN: 1. Patient will have a repeat ABG. 2. Continue assist control mode of ventilation for today; will reattempt a spontaneous breathing trial tomorrow. 3. C1 esterase inhibitor, C3, C4 and CH50 to evaluate for any exacerbation of her chronic hereditary angioedema. 4. Continue Solu-Medrol along bronchodilators. 5. Reculture the patient and continue current antibiotics. 6. Repeat a white blood cell count. 7. Begin enteral feedings. 8. Deep venous thrombosis prophylaxis. Greater than 35 minutes in direct critical care time. Case discussed with Dr. Pagan, the nursing staff, respiratory and the daughter. Job#: [id number] GH MTDD
[2018-04-15] MEDS: AZITHROMYCIN 500MG/NS 250 ML 250 ML IV SCH (17:28)
[2018-04-16] VITALS (93 sets, daily range): BP systolic 80–150; BP diastolic 40–74
[2018-04-16] MEDS: PROPOFOL IV EMULSION 10MG/ML 100 ML IV PRN ×11 (01:30→22:36)
[2018-04-16] MEDS: DEXMEDETOMIDINE 200MCG/NS 50ML 50 ML IV SCH ×6 (04:00→23:25)
[2018-04-16 05:35] LABS: ALBUMIN 3.4 g/dL (3.5-5.0); BILIRUBIN,DIRECT 0.3 mg/dL (0.0-0.5)
[2018-04-16] MEDS: PIPER-TAZ 3.375 GM / NS 50ML IV SCH ×3 (06:00→21:27)
[2018-04-16 06:07] LABS: ALANINE AMINOTRANSFERASE 24 IU/L (0-55); ALBUMIN 3.4 g/dL (3.5-5.0); ALBUMIN/GLOBULIN RATIO 1.8 (0.8-2.0); ALKALINE PHOSPHATASE 45 IU/L (40-150); ANION GAP 15.8 mmol/L (8-16); BLOOD UREA NITROGEN 37 mg/dL (7-26); BUN/CREATININE RATIO 41 (6-25); CARBON DIOXIDE 23 mmol/L (22-29); CHLORIDE 106 mmol/L (98-107); EST GLOMERULAR FILTRATION RATE > 60 ML/MIN (60-); GLUCOSE 122 mg/dL (74-118); POTASSIUM 3.8 mmol/L (3.5-5.1); SODIUM 141 mmol/L (136-145)
[2018-04-16 06:30] LABS: BASOPHILS % 0.2 % (0.0-1.0); HEMATOCRIT 26.2 % (34.2-44.1); LYMPHOCYTES # (AUTO) 0.6 (1.0-3.2); LYMPHOCYTES % 11.4 % (18.0-39.1); MEAN CORPUSCULAR HEMOGLOBIN 26.8 pg (28-32); MEAN CORPUSCULAR HGB CONC 30.5 g/dL (31-35); MEAN CORPUSCULAR VOLUME 87.6 fL (81-99); MONOCYTES # (AUTO) 0.4 (0.2-0.8); MONOCYTES % 6.7 % (4.4-11.3); NEUTROPHILS # (AUTO) 4.3 (2.1-6.9); NEUTROPHILS % 77.2 % (38.7-80.0); PLATELET COUNT 165 x10e3/uL (140-360); RED BLOOD COUNT 2.99 x10e6/uL (3.6-5.1); RED CELL DISTRIBUTION WIDTH 23.1 % (11.7-14.4)
[2018-04-16] MEDS: IPRATROPIUM BROMIDE 0.02% 2.5 ML NEB NEB SCH ×4 (07:00→22:55)
[2018-04-16] MEDS: ALBUTEROL SULF 0.083% NEB SOLN 3 ML NEB NEB SCH ×4 (07:00→22:55)
--- NOTE | 2018-04-16 07:30 | Diagnostic Imaging Report ---
Examination: Single AP view of the chest. COMPARISON: 04/15/2018 INDICATION: Pulmonary edema DISCUSSION: When accounting for differences in patient positioning, endotracheal tube, enteric tube, and right upper extremity PICC are unchanged in position. Borderline enlargement of the cardiac silhouette and prominence of the central hilum/interstitium unchanged. No sizable pleural effusion or pneumothorax. No new consolidation. IMPRESSION: Stable position of support lines and tubes. Stable findings suggestive of mild interstitial pulmonary edema. Signed by: Dr. Tk Martinez M.D. on 04/16/2018 7:27 AM
[2018-04-16] MEDS: METOPROLOL TARTRATE 25 MG TAB PO SCH ×2 (09:00→17:00)
[2018-04-16] MEDS ORDERED: DEXMEDETOMIDINE 200MCG/NS 50ML 50 ML IV ONE ×5 (09:05→23:25)
[2018-04-16 09:12] LABS: ABG HCO3 26 mmol/L (23-28); ABG PCO2 42 mmHg (41-51); ABG PH 7.41 (7.31-7.41); ABG PO2 160 mmHg (80-105)
[2018-04-16] MEDS: VANCOMYCIN HCL 1.25 GM in SODIUM CHLORIDE 0.9% 250ML 250 ML IV SCH (09:30)
[2018-04-16 10:10] LABS: LYMPHOCYTES % (MANUAL) 10 % (19-48); MONOCYTES % (MANUAL) 4 % (3.4-9.0); NEUTROPHILS % (MANUAL) 86 % (40-74); PLATELET ESTIMATE ADEQUATE; PLATELET MORPHOLOGY COMMENT NORMAL; RBC MORPHOLOGY COMMENT NORMAL
[2018-04-16] MEDS: METHYLPREDNISOLONE SOD SUCC 40 MG/ML VIAL IV SCH ×2 (10:30→21:27)
[2018-04-16] MEDS: FAMOTIDINE 20 MG/2 ML VIAL IV SCH ×2 (11:43→11:45)
--- NOTE | 2018-04-16 12:34 | Progress Note ---
DATE: April 16, 2018 PULMONARY PROGRESS NOTE SUBJECTIVE: The patient was reintubated and transported back to the intensive care unit yesterday. This morning, she went on a spontaneous breathing trial with the pressure support of 8 and CPAP of 3. She tolerated this well without difficulty. Followup ABG was within normal limits. PHYSICAL EXAMINATION VITAL SIGNS: The patient is afebrile. She remains on CPAP and pressure support. Her blood pressure is 114/53, and her saturation is 100%. HEENT: Examination shows no facial swelling or erythema. There is an endotracheal tube in place. LYMPHATIC: Examination shows no submandibular, cervical or supraclavicular adenopathy. CARDIAC: Exam reveals regular rate and rhythm with normal S1 and S2. LUNGS: Auscultation of the lungs reveals clear breath sounds bilaterally. There is no wheezing. ABDOMEN: Soft and nontender. There is no rebound or regarding. EXTREMITIES: No leg edema or calf tenderness. LABORATORY DATA: Hemoglobin is 8, and white blood count has returned to 5.5. The platelet count is normal. The electrolytes are within normal limits. IMPRESSION 1. Xvhie-ps-sqbnegw respiratory failure. 2. Chronic obstructive pulmonary disease. 3. Hereditary angioedema. 4. Myelodysplastic syndrome with anemia. PLAN 1. ENT will evaluate the patient for any laryngeal edema. Upper airway problems due to the hereditary angioedema could be a potential cause of her current respiratory failure. 2. C1 esterase inhibitor. C3, C4 and CH50 are pending. 3. If ENT evaluation is normal, will proceed with extubation. 4. Continue current antibiotics. 5. Await culture results. 6. Taper steroids. 7. Continue to monitor blood counts. Job#: [id number]
[2018-04-16] MEDS ORDERED: MIDAZOLAM HCL 2 MG/2 ML VIAL ONE (14:14)
[2018-04-16] MEDS ORDERED: MIDAZOLAM HCL 2 MG/2 ML VIAL IV STA (14:33)
[2018-04-16] MEDS ORDERED: LORAZEPAM INJ 2 MG/ML VIAL IV PRN (17:15)
[2018-04-16] MEDS: AZITHROMYCIN 500MG/NS 250 ML 250 ML IV SCH (17:37)
--- NOTE | 2018-04-16 20:07 | Consultation ---
DATE OF CONSULTATION: April 16, 2018 HISTORY OF PRESENT ILLNESS: I was kindly asked to see this 68-year-old woman for evaluation of possible upper airway obstruction. Patient has a history of end-stage COPD and was extubated and required reintubation for respiratory distress. While she was having difficulty breathing, the breathing was typical for exacerbation of her COPD. The family reports she did not have stridor. There was concern for possible upper airway obstruction because the patient has a history of angioedema and C1 esterase deficiency. She typically is treated with C1 esterase approximately every 6 months. Her angioedema from the C1 esterase deficiency is usually manifested with hives and occasionally with tongue swelling. She has never had difficulty breathing with the exacerbation of her angioedema in the past. Her history of present illness, past medical history and past surgical history were reviewed in detail in the chart. PHYSICAL EXAMINATION: The patient was intubated and sedated. On fiberoptic laryngoscopy, the patient's tongue appeared normal. The tissues surrounding the endotracheal tube were unremarkable. The larynx could not be evaluated due to the presence of the endotracheal tube, however, there was no abnormal edema noted at the supraglottic larynx. ASSESSMENT: 1. Respiratory failure. 2. No evidence of upper airway obstruction. 3. Angioedema and C1 esterase deficiency which does not appear to be contributing to her respiratory failure. Job#: [id number] ENEDINA
[2018-04-17] VITALS (85 sets, daily range): BP systolic 93–162; BP diastolic 45–119
--- NOTE | 2018-04-17 00:28 | Consultation ---
DATE OF CONSULTATION: April 15, 2018 REQUESTING PHYSICIAN: Dr. Yessenia Pagan HEMATOLOGY/ONCOLOGY SERVICE REASON FOR CONSULTATION: Evaluation and management of patient with anemia. HISTORY OF PRESENT ILLNESS: Ms. Pan is a 68-year-old female with known history of chronic obstructive pulmonary disease, hereditary angioedema, and questionable history of myelodysplastic syndrome, admitted due to respiratory insufficiency. Apparently, in the morning, rapid response was called and patient was intubated and transferred to the intensive care unit and placed on mechanical ventilator. Hematology/oncology was consulted to assist with the management due to anemia. PAST MEDICAL HISTORY 1. COPD. 2. Hereditary angioedema. 3. Questionable history of myelodysplastic syndrome. 4. Uably-np-gjsxzun respiratory failure. SOCIAL HISTORY: History of smoking. No alcohol use or illicit drug use. CURRENT MEDICATIONS: Reviewed as per electronic medical record. REVIEW OF SYSTEMS: Unobtainable. PHYSICAL EXAMINATION VITAL SIGNS: Reviewed as per electronic medical record. HEENT: Head atraumatic. CVS: S1 and S2 audible. RESPIRATORY: Decreased bilateral air entry. ABDOMEN: Positive bowel sounds. EXTREMITIES: Negative edema. NEURO: Altered mental status. LABORATORY DATA: White blood cell count of 4.6, hemoglobin 9.9, hematocrit 33.9, platelets 287,000. BUN 30, creatinine 1.0. ASSESSMENT AND PLAN: Ms. Pan is a 68-year-old female with multiple medical problems with known history of chronic obstructive pulmonary disease, ewugz-xt-wwwnjyo respiratory failure, hereditary angioedema and questionable history of myelodysplastic syndrome, admitted due to respiratory insufficiency. Patient had respiratory failure this morning, subsequently she was transferred to intensive care unit and placed on mechanical ventilator. Her hemoglobin dropped down to 6 range. Subsequently she had a transfusion. Reviewed the record and at this point recommendation would be to closely monitor H and H. I will get baseline blood count depending on the result to provide further recommendation though treatment would be mostly supportive in nature and taking the sepsis and respiratory failure. Thank you for the consult. I will continue to be available. Please call with questions. Job#: [id number]
[2018-04-17] MEDS: PROPOFOL IV EMULSION 10MG/ML 100 ML IV PRN ×2 (02:14→05:35)
[2018-04-17] MEDS: IPRATROPIUM BROMIDE 0.02% 2.5 ML NEB NEB SCH ×6 (03:05→23:15)
[2018-04-17] MEDS: ALBUTEROL SULF 0.083% NEB SOLN 3 ML NEB NEB SCH ×6 (03:05→23:15)
[2018-04-17] MEDS ORDERED: DEXMEDETOMIDINE 200MCG/NS 50ML 50 ML IV ONE ×2 (03:44→06:28)
[2018-04-17] MEDS ORDERED: SODIUM CHLORIDE 0.9% 1000ML 1,000 ML ONE (03:45)
[2018-04-17] MEDS: DEXMEDETOMIDINE 200MCG/NS 50ML 50 ML IV SCH (03:45)
[2018-04-17 04:34] LABS: BASOPHILS % 0.2 % (0.0-1.0); HEMATOCRIT 27.4 % (34.2-44.1); HEMOGLOBIN 8.5 g/dL (12.0-16.0); LYMPHOCYTES # (AUTO) 0.6 (1.0-3.2); LYMPHOCYTES % 11.4 % (18.0-39.1); MEAN CORPUSCULAR HEMOGLOBIN 26.8 pg (28-32); MEAN CORPUSCULAR VOLUME 86.4 fL (81-99); MONOCYTES # (AUTO) 0.4 (0.2-0.8); MONOCYTES % 6.7 % (4.4-11.3); NEUTROPHILS # (AUTO) 4.1 (2.1-6.9); NEUTROPHILS % 74.3 % (38.7-80.0); PLATELET COUNT 167 x10e3/uL (140-360); RED BLOOD COUNT 3.17 x10e6/uL (3.6-5.1); RED CELL DISTRIBUTION WIDTH 23.1 % (11.7-14.4)
[2018-04-17 05:11] LABS: ALANINE AMINOTRANSFERASE 20 IU/L (0-55); ALBUMIN 3.4 g/dL (3.5-5.0); ALBUMIN/GLOBULIN RATIO 1.7 (0.8-2.0); ALKALINE PHOSPHATASE 41 IU/L (40-150); BLOOD UREA NITROGEN 36 mg/dL (7-26); BUN/CREATININE RATIO 49 (6-25); CARBON DIOXIDE 22 mmol/L (22-29); CHLORIDE 109 mmol/L (98-107); CREATININE, SERUM 0.73 mg/dL (0.57-1.11); EST GLOMERULAR FILTRATION RATE > 60 ML/MIN (60-); GLUCOSE 120 mg/dL (74-118); SODIUM 144 mmol/L (136-145)
[2018-04-17] MEDS: PIPER-TAZ 3.375 GM / NS 50ML IV SCH ×3 (05:30→21:30)
[2018-04-17 05:54] LABS: CALCIUM 6.8 mg/dL (8.4-10.2)
[2018-04-17] MEDS ORDERED: CALCIUM GLUCONATE 10% INJ 4.65 MEQ in SODIUM CHLORIDE 0.9% 50ML 50 ML IV ONE (06:30)
--- NOTE | 2018-04-17 07:51 | Diagnostic Imaging Report ---
EXAM: XR CHEST 1 VIEW DATE: 04/17/2018 6:30 AM INDICATION: Respiratory failure. COMPARISON: 04/16/2018 FINDINGS: Lines and Tubes: ET tube tip terminates 4.6 cm above the eugene. Enteric tube courses into the stomach, the tip is not seen. Right PICC with tip at the cavoatrial junction. Lungs and Pleura: Mild patchy bibasilar opacities. Mild interstitial opacities. No new consolidation. Heart and Mediastinum: Unremarkable cardiomediastinal silhouette. Prominence of the andrés bilaterally is unchanged. Bones and Soft Tissues: No acute findings. Findings of verteral augmentation in the lower thoracic spine. IMPRESSION: Findings suggestive of mild pulmonary interstitial edema. Patchy opacities at the lung bases, likely atelectasis. No new consolidation. Signed by: Dr. Patrick Rivera MD on 04/17/2018 7:47 AM
[2018-04-17] MEDS: METOPROLOL TARTRATE 25 MG TAB PO SCH ×2 (09:00→15:38)
[2018-04-17] MEDS: METHYLPREDNISOLONE SOD SUCC 40 MG/ML VIAL IV SCH ×2 (09:27→21:00)
[2018-04-17] MEDS: VANCOMYCIN HCL 1.25 GM in SODIUM CHLORIDE 0.9% 250ML 250 ML IV SCH (09:27)
[2018-04-17] MEDS ORDERED: MORPHINE SULFATE 2 MG/ML SYR IV STA (11:15)
[2018-04-17] MEDS ORDERED: HYDROXYZINE HCL 25 MG TAB PO PRN (15:15)
[2018-04-17] MEDS: LORAZEPAM 0.5 MG TAB PO PRN (15:38)
[2018-04-17] MEDS: AZITHROMYCIN 500MG/NS 250 ML 250 ML IV SCH (18:33)
[2018-04-18] VITALS (24 sets, daily range): BP systolic 123–163; BP diastolic 56–88
[2018-04-18] MEDS: LORAZEPAM 0.5 MG TAB PO PRN ×3 (00:15→17:05)
[2018-04-18] MEDS: ALBUTEROL SULF 0.083% NEB SOLN 3 ML NEB NEB SCH ×6 (03:07→22:55)
[2018-04-18] MEDS: IPRATROPIUM BROMIDE 0.02% 2.5 ML NEB NEB SCH ×5 (03:07→22:55)
[2018-04-18 04:42] LABS: BASOPHILS % 0.3 % (0.0-1.0); HEMATOCRIT 26.4 % (34.2-44.1); HEMOGLOBIN 8.1 g/dL (12.0-16.0); LYMPHOCYTES # (AUTO) 0.8 (1.0-3.2); LYMPHOCYTES % 8.7 % (18.0-39.1); MEAN CORPUSCULAR HEMOGLOBIN 26.6 pg (28-32); MEAN CORPUSCULAR HGB CONC 30.7 g/dL (31-35); MEAN CORPUSCULAR VOLUME 86.6 fL (81-99); MONOCYTES # (AUTO) 0.6 (0.2-0.8); MONOCYTES % 6.3 % (4.4-11.3); NEUTROPHILS # (AUTO) 7.1 (2.1-6.9); NEUTROPHILS % 78.3 % (38.7-80.0); PLATELET COUNT 156 x10e3/uL (140-360); RED BLOOD COUNT 3.05 x10e6/uL (3.6-5.1); RED CELL DISTRIBUTION WIDTH 23.1 % (11.7-14.4)
[2018-04-18 05:10] LABS: ANION GAP 17.6 mmol/L (8-16); BLOOD UREA NITROGEN 31 mg/dL (7-26); BUN/CREATININE RATIO 46 (6-25); CALCIUM 7.2 mg/dL (8.4-10.2); CARBON DIOXIDE 22 mmol/L (22-29); CHLORIDE 112 mmol/L (98-107); CREATININE, SERUM 0.68 mg/dL (0.57-1.11); EST GLOMERULAR FILTRATION RATE > 60 ML/MIN (60-); GLUCOSE 89 mg/dL (74-118); POTASSIUM 3.6 mmol/L (3.5-5.1); SODIUM 148 mmol/L (136-145)
[2018-04-18] MEDS: PIPER-TAZ 3.375 GM / NS 50ML IV SCH ×3 (05:53→21:48)
[2018-04-18 07:17] LABS: LYMPHOCYTES % (MANUAL) 13 % (19-48); MONOCYTES % (MANUAL) 4 % (3.4-9.0); NEUTROPHILS % (MANUAL) 83 % (40-74); PLATELET ESTIMATE ADEQUATE; PLATELET MORPHOLOGY COMMENT NORMAL; RBC MORPHOLOGY COMMENT NORMAL
[2018-04-18] MEDS: FAMOTIDINE 20 MG/2 ML VIAL IV SCH (08:10)
[2018-04-18] MEDS: METHYLPREDNISOLONE SOD SUCC 40 MG/ML VIAL IV SCH ×2 (08:10→20:07)
[2018-04-18] MEDS: VANCOMYCIN HCL 1.25 GM in SODIUM CHLORIDE 0.9% 250ML 250 ML IV SCH ×2 (08:10→10:00)
[2018-04-18] MEDS: METOPROLOL TARTRATE 25 MG TAB PO SCH ×2 (08:11→17:05)
[2018-04-18] MEDS: CYANOCOBALAMIN 1,000 MCG TAB PO SCH (13:13)
[2018-04-18] MEDS ORDERED: HYDROCHLOROTHIAZIDE 25 MG TAB PO ONE (13:30)
[2018-04-18] MEDS ORDERED: POTASSIUM CHLORIDE 20 MEQ TAB CR PO ONE (13:30)
[2018-04-18] MEDS ORDERED: FUROSEMIDE INJ 10 MG/ML 2 ML VIAL IV ONE (13:30)
--- NOTE | 2018-04-18 13:42 | Progress Note ---
DATE: April 18, 2018 PULMONARY MEDICINE PROGRESS NOTE SUBJECTIVE: Ms. Pan was seen and examined at bedside. She continues to have steady progress. She is on 2 liters per minute by nasal cannula. She has Andrews in place. She still has not walked yet. She is taking in some diet, but sometimes she is coughing after taking in her oral intake, which is clear liquid diet. REVIEW OF SYSTEMS: No bleeding. No rash. OBJECTIVE VITAL SIGNS: Afebrile. Vital signs noted per electronic record. GENERAL: No acute distress, alert and calm, looks a bit weak in bed. HEENT: Normocephalic, atraumatic. NECK: Supple. Throat midline. LUNGS: Bilateral air entry is decreased, rare rhonchi mostly limited and clear. CARDIOVASCULAR: S1 and S2. No murmurs, rubs, or gallops. ABDOMINAL: Soft, nontender. EXTREMITIES: No clubbing. No cyanosis. There is no edema. INTEGUMENT: No rash. No purpura. LABS: Potassium 3.6, BUN 31, and creatinine 0.7. White count 9, hematocrit 36, and platelets 156. IMAGING: Chest x-ray with considerably mild pulmonary interstitial edema. IMPRESSION 1. Chronic obstructive pulmonary disease with exacerbation. 2. Acute respiratory failure. 3. Possible mild dysphagia, acute coughing after eating. 4. Mild hyponatremia. 5. 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 6. Mild protein-calorie malnutrition. PLAN: Continue steroids at this point and bronchodilators. We will slowly resume all of her home medications. Continue to mobilize her and get PT on the case. We will discuss with hematology regarding resuming some of her outpatient MDS medications. Repeat chest x-ray tomorrow to make sure that x-ray appears better. Keep patient slightly dry. Job#: [id number] GERMAINE
[2018-04-18] MEDS: PYRIDOXINE HCL 50 MG TAB PO SCH (17:05)
[2018-04-18] MEDS: AZITHROMYCIN 500MG/NS 250 ML 250 ML IV SCH (17:05)
[2018-04-19 00:58] VITALS: BP 143/66
[2018-04-19] MEDS: LORAZEPAM 0.5 MG TAB PO PRN ×3 (01:57→18:00)
[2018-04-19] MEDS: IPRATROPIUM BROMIDE 0.02% 2.5 ML NEB NEB SCH ×6 (03:20→22:50)
[2018-04-19] MEDS: ALBUTEROL SULF 0.083% NEB SOLN 3 ML NEB NEB SCH ×6 (03:20→22:50)
[2018-04-19 04:17] VITALS: BP 125/51
[2018-04-19] MEDS: PIPER-TAZ 3.375 GM / NS 50ML IV SCH ×3 (05:42→21:05)
--- NOTE | 2018-04-19 07:43 | Diagnostic Imaging Report ---
EXAM: XR CHEST 1 VIEW DATE: 04/19/2018 5:00 AM INDICATION: COPD, CHF COMPARISON: 04/17/2018, no report available FINDINGS: Lines and Tubes: ET tube NG tube removed. Right subclavian central venous catheter stable. Heart and Mediastinum: No acute cardiomediastinal findings. Lungs and Pleura: Mild edema. Basilar atelectasis. Bones and Soft Tissues: No acute findings. IMPRESSION: 1. Extubation. Signed by: Dr. Toño Matos MD on 04/19/2018 7:40 AM
[2018-04-19 07:50] VITALS: BP 131/62
[2018-04-19] MEDS: FAMOTIDINE 20 MG/2 ML VIAL IV SCH (08:16)
[2018-04-19] MEDS: METHYLPREDNISOLONE SOD SUCC 40 MG/ML VIAL IV SCH ×2 (08:16→21:05)
[2018-04-19] MEDS: CYANOCOBALAMIN 1,000 MCG TAB PO SCH (08:16)
[2018-04-19] MEDS: METOPROLOL TARTRATE 25 MG TAB PO SCH ×2 (08:20→16:11)
[2018-04-19] MEDS: PYRIDOXINE HCL 50 MG TAB PO SCH ×2 (09:50→16:11)
[2018-04-19] MEDS: VANCOMYCIN HCL 1.25 GM in SODIUM CHLORIDE 0.9% 250ML 250 ML IV SCH (09:50)
[2018-04-19 12:00] VITALS: BP 139/86
[2018-04-19 16:00] VITALS: BP 132/70
[2018-04-19] MEDS: AZITHROMYCIN 500MG/NS 250 ML 250 ML IV SCH (17:01)
--- NOTE | 2018-04-19 17:10 | Progress Note ---
DATE: April 19, 2018 PULMONARY MEDICINE PROGRESS NOTE SUBJECTIVE: Ms. Pan was seen and examined at bedside. She continues to have slow progress. Patient was able to stand up and do stand pivot maneuver to get to sit down today. However, not fully walking. No worsening of her dyspnea noted. She is still on IV steroids at this time. Patient was able to eat her clear liquid diet without problems today. REVIEW OF SYSTEMS: No constipation, no double vision. OBJECTIVE: VITAL SIGNS: Afebrile. Vital signs noted per electronic record. GENERAL: No acute distress, looks weak in bed. HEENT: Normocephalic, atraumatic. NECK: Supple. Throat midline. LUNGS: Bilateral air entry, rare rhonchi, moderate to good air entry. No pascual wheezes. CARDIOVASCULAR: S1 and S2. No murmurs, rubs, or gallops. ABDOMEN: Soft, nontender. EXTREMITIES: No clubbing, no cyanosis. There is 1+ edema. INTEGUMENT: No rash. No purpura. LABS: Potassium 3.6, BUN 31, and creatinine 0.7. White count 9, hematocrit 36, and platelets 156. IMPRESSION AND PLAN 1. Acute respiratory failure. 2. Hereditary angioedema, no evidence of flare. 3. 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 4. Chronic obstructive pulmonary disease with exacerbation, possibly flaring up with some improvement. 5. Reported urticaria. 6. Possible pneumonia. 7. Weakness. Escalate diet to regular. We will continue same steroids at this time and we will with physical therapy and consider decrease in steroids tomorrow. Stop vancomycin as all cultures have not proven resistant organisms. Follow up if the patient gets mobilize tomorrow. Job#: [id number]
[2018-04-19 20:00] VITALS: BP 148/64
[2018-04-20] VITALS (8 sets, daily range): BP systolic 134–169; BP diastolic 53–79
[2018-04-20] MEDS: LORAZEPAM 0.5 MG TAB PO PRN ×3 (02:15→22:23)
[2018-04-20] MEDS: IPRATROPIUM BROMIDE 0.02% 2.5 ML NEB NEB SCH ×6 (02:40→22:32)
[2018-04-20] MEDS: ALBUTEROL SULF 0.083% NEB SOLN 3 ML NEB NEB SCH ×6 (02:40→22:15)
--- NOTE | 2018-04-20 04:27 | Progress Note ---
DATE: April 20, 2018 PULMONARY MEDICINE PROGRESS NOTE SUBJECTIVE: Ms. Pan was seen and examined at bedside. She remains slightly better without significant worsening. She was able to get up to chair and take a few steps, although she did not frankly walk around today. The patient ate some of her solid meal, although not all. The patient remains on oxygen by nasal cannula. REVIEW OF SYSTEMS: No headaches. OBJECTIVE VITALS: Afebrile. Vital signs noted per electronic record. GENERAL: No acute distress. HEENT: Normocephalic. NECK: Supple. LUNGS: Bilateral air entry is decreased. No pascual wheezes. CARDIOVASCULAR: S1 and S2. No murmurs, rubs or gallops. ABDOMEN: Soft. EXTREMITIES: There is only trace edema. INTEGUMENT: Thin skin. LABS: Pending. IMPRESSION AND PLAN 1. Acute respiratory failure, extubated. 2. Chronic obstructive pulmonary disease with exacerbation. 3. Gastroesophageal reflux disease, possibly a significant instigator here. 4. Weakness. 5. Chronic respiratory failure, chronic hypoxemia. PT evaluation is pending. If she does good, will decrease the steroids to oral tablets. We increased the GERD medication given the high risk situation. We wish continue to continue a little bit more IV steroids until we get better information in from therapy. BiPAP set up for backup and continue oxygen. Job#: [id number] DEANNA
[2018-04-20] MEDS: PIPER-TAZ 3.375 GM / NS 50ML IV SCH (07:20)
[2018-04-20] MEDS: PANTOPRAZOLE SOD 40 MG TABEC PO SCH (08:20)
[2018-04-20] MEDS: METOPROLOL TARTRATE 25 MG TAB PO SCH ×2 (08:21→16:59)
[2018-04-20] MEDS: FAMOTIDINE 20 MG/2 ML VIAL IV SCH (08:21)
[2018-04-20] MEDS: CYANOCOBALAMIN 1,000 MCG TAB PO SCH (08:21)
[2018-04-20] MEDS: PYRIDOXINE HCL 50 MG TAB PO SCH ×2 (08:21→16:59)
[2018-04-20] MEDS: METHYLPREDNISOLONE SOD SUCC 40 MG/ML VIAL IV SCH (09:23)
[2018-04-21] MEDS: ALBUTEROL SULF 0.083% NEB SOLN 3 ML NEB NEB SCH ×4 (03:40→14:35)
[2018-04-21] MEDS: IPRATROPIUM BROMIDE 0.02% 2.5 ML NEB NEB SCH ×4 (03:40→14:35)
[2018-04-21 04:40] VITALS: BP 126/52
[2018-04-21 07:45] VITALS: BP 126/39
[2018-04-21] MEDS: PYRIDOXINE HCL 50 MG TAB PO SCH (08:50)
[2018-04-21] MEDS: METOPROLOL TARTRATE 25 MG TAB PO SCH (08:50)
[2018-04-21] MEDS: PANTOPRAZOLE SOD 40 MG TABEC PO SCH (08:50)
[2018-04-21] MEDS: CYANOCOBALAMIN 1,000 MCG TAB PO SCH (08:50)
[2018-04-21 10:57] VITALS: BP 126/39
--- OUTSIDE RECORDS SUMMARY | 2018-04-21 11:51 | XMS REPORT | Clinical Summary ---
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 Disp. Refills Start End Date Status Date PROAIR HFA 90 Inhale 1 puff every 4 2 08/28/19 Active mcg/actuation inhaler (four) hours as needed. 16 INHALE 2 PUFFS BY MOUTH THREE TIMES DAILY NEEDED BERINERT 500 unit (10 mL) Infuse 1,500 Units into a 06/28/20 Active kit venous catheter daily as 15 needed (hereditary angioedema episode). folic acid (FOLVITE) 1 MG Take 1 mg by mouth once 11 08/20/19 Active tablet daily. 16 FIRAZYR 30 mg/3 mL Inject 30 mg under the 02/26/20 Active syringe skin every 6 (six) hours 16 as needed (hereditary angioedema episode). Maximum 3 doses/day hydrOXYzine (ATARAX) 25 Take 25 mg by mouth 3 Active MG tablet (three) times a day as needed for itching. promethazine (PHENERGAN) Take 25 mg by mouth every Active 25 MG tablet 6 (six) hours as needed for nausea or vomiting (use zofran first; if doesn't work, use zofran). zinc 50 mg tablet Take 1 tablet by mouth Active daily. pyridoxine, vitamin B6, Take 100 mg by mouth Active (B-6) 100 MG tablet daily. cyanocobalamin 1000 MCG Take 1,000 mcg by mouth Active tablet daily. cholecalciferol, vitamin Take 2,000 Units by mouth Active D3, (VITAMIN D3) 2,000 daily. unit capsule capsule pen needle, diabetic (BD For use daily with Forteo 100 each 3 04/30/20 Active INSULIN PEN NEEDLE UF device 16 MINI) 31 gauge x /16" needleIndications: Osteoporosis EPIPEN 2-GRACY 0.3 mg/0.3 Inject 0.3 mL (0.3 mg 2 each 2 01/30/20 Active mL auto-injector total) into the shoulder, 17 thigh, or buttocks once as needed (angioedema or anaphylaxis). chlordiazepoxide-clidiniu Take 1 capsule by mouth 90 capsule 2 07/21/19 Active m (LIBRAX) 5-2.5 mg per nightly. 18 capsule ipratropium-albuterol INHALE 1 VIAL IN 1 06/11/20 Active (DUO-NEB) 0.5-2.5 mg/mL NEBULIZER EVERY 6 HOURS 17 nebulizer NEEDED FOR COUGH OR SHORTNESS OF BREATH metoprolol tartrate Take 1 tablet (25 mg 180 tablet 2 09/01/19 Active (LOPRESSOR) 25 mg tablet total) by mouth 2 (two) 18 times a day. naproxen (NAPROSYN) 500 Take 1 tablet (500 mg 60 tablet 0 09/11/19 Active MG tablet total) by mouth 2 (two) 18 times a day with meals. loratadine (CLARITIN) 10 Take 1 tablet (10 mg 30 tablet 3 09/10/19 Active mg tablet total) by mouth daily. 18 esomeprazole (NexIUM) 40 Take 1 capsule (40 mg 90 capsule 2 10/03/19 Active MG capsule total) by mouth once 18 daily. triamterene-hydrochloroth Take 1 capsule by mouth 90 capsule 1 10/22/19 Active iazid (DYAZIDE) 37.5-25 once daily. 18 mg per capsule lidocaine HCl 3 % cream Use 3 to 4 times a week 85 g 3 12/09/19 Active on affected area 18 lidocaine (LMX) 5 % cream Apply topically daily 45 g 3 12/18/19 Active cream 18 LORAZepam (ATIVAN) 0.5 MG Take 1 tablet (0.5 mg 60 tablet 1 03/30/20 05/29/20 Active tablet total) by mouth 2 (two) 18 18 times a day as needed for anxiety for up to 60 days. LORAZepam (ATIVAN) 0.5 MG TAKE 1 TABLET(0.5 MG) BY 60 tablet 0 03/30/20 04/29/20 Active tablet MOUTH TWICE DAILY 18 18 NEEDED FOR ANXIETY hydrOXYzine (ATARAX) 25 Take 1 tablet (25 mg 90 tablet 2 03/30/20 06/28/20 Active MG tablet total) by mouth 3 (three) 18 18 times a day as needed for itching for up to 90 days. wheelchair device Use as directed 1 each 0 04/08/20 Active 18 ADVAIR DISKUS 250-50 TAKE 1 PUFF BY MOUTH 0 07/26/19 09/23/19 Discontin mcg/dose DISKUS TWICE A DAY 16 18 ued SPIRIVA RESPIMAT 2.5 Inhale 2 Act daily. At 01/04/20 09/23/19 Discontin mcg/actuation mist noon 16 18 ued metoprolol tartrate TAKE 1 TABLET BY MOUTH 180 tablet 3 02/20/20 05/16/20 Discontin (LOPRESSOR) 25 MG tablet TWICE A DAY 16 17 ued ondansetron (ZOFRAN) 4 MG Take 4 mg by mouth every 0 02/19/20 08/18/19 Discontin tablet 12 (twelve) hours as 16 18 ued needed for nausea or vomiting. for nausea fexofenadine (PRIMO) 60 Take 60 mg by mouth daily 11/08/19 Discontin MG tablet as needed. 18 ued naproxen (NAPROSYN) 500 Take 1 tablet (500 mg 60 tablet 0 04/02/20 09/09/19 Discontin MG tablet total) by mouth 2 (two) 16 18 ued times a day with meals. chlordiazepoxide-clidiniu Take 1 capsule by mouth 90 capsule 2 10/22/19 07/11/19 Discontin m (LIBRAX) 5-2.5 mg per nightly. 17 18 ued capsule triamterene-hydrochloroth Take 1 capsule by mouth 90 capsule 1 03/13/20 10/22/19 Discontin iazid (DYAZIDE) 37.5-25 once daily. 17 18 ued mg per capsule esomeprazole (NexIUM) 40 Take 1 capsule (40 mg 90 capsule 2 03/28/20 06/22/20 Discontin MG capsule total) by mouth once 17 17 ued daily. denosumab (PROLIA) 60 Inject 1 mL (60 mg total) 1 mL 1 04/11/20 04/11/20 mg/mL syringe under the skin once for 1 17 17 syringeIndications: dose. Chronic vertebral fracture due to osteoporosis with routine healing, subsequent encounter traMADol (ULTRAM) 50 mg Take 1 tablet (50 mg 90 tablet 0 05/01/20 05/31/20 tablet total) by mouth every 8 17 17 (eight) hours as needed for moderate pain for up to 30 days. lidocaine (LIDODERM) 5 % Place 1 patch on the skin 30 patch 3 05/01/20 08/18/19 Discontin daily. Remove & Discard 17 18 ued patch within 12 hours or as directed by lidocaine (XYLOCAINE) 5 % Apply topically as needed 35.44 g 0 05/01/20 12/09/19 Discontin ointment for mild pain. 17 18 ued ondansetron ODT DISSOLVE 1 TABLET IN 60 tablet 0 05/15/20 07/21/19 Discontin (ZOFRAN-ODT) 8 MG MOUTH EVERY 12 HOURS 17 18 ued disintegrating tablet NEEDED FOR NAUSEA OR VOMITING metoprolol tartrate TAKE 1 TABLET BY MOUTH 180 tablet 0 05/16/20 08/15/19 Discontin (LOPRESSOR) 25 mg tablet TWICE A DAY 17 18 ued esomeprazole (NexIUM) 40 Take 1 capsule (40 mg 90 capsule 2 06/23/20 10/03/19 Discontin MG capsule total) by mouth once 17 18 ued daily. chlordiazepoxide-clidiniu TAKE ONE CAPSULE BY MOUTH 90 capsule 2 07/14/19 07/21/19 Discontin m (LIBRAX) 5-2.5 mg per NIGHTLY 18 18 ued capsule ondansetron ODT Take 1 tablet (8 mg 60 tablet 0 07/21/19 10/28/19 Discontin (ZOFRAN-ODT) 8 MG total) by mouth every 8 18 18 ued disintegrating tablet (eight) hours as needed for nausea or vomiting for up to 30 days. metoprolol tartrate TAKE 1 TABLET BY MOUTH 180 tablet 0 08/15/19 09/01/19 Discontin (LOPRESSOR) 25 mg tablet TWICE A DAY 18 18 ued LORAZepam (ATIVAN) 0.5 MG 08/07/19 09/10/19 Discontin tablet 18 18 ued furosemide (LASIX) 20 mg 08/07/19 12/09/19 Discontin tablet 18 18 ued benzonatate (TESSALON Take 1 capsule (100 mg 60 capsule 1 09/10/19 10/10/19 PERLES) 100 MG capsule total) by mouth 2 (two) 18 18 times a day as needed for cough for up to 30 days. LORAZepam (ATIVAN) 0.5 MG Take 1 tablet (0.5 mg 60 tablet 0 09/10/19 09/10/19 Discontin tablet total) by mouth 2 (two) 18 18 ued times a day as needed for anxiety for up to 30 days. LORAZepam (ATIVAN) 0.5 MG Take 1 tablet (0.5 mg 60 tablet 0 09/10/19 10/03/19 Discontin tablet total) by mouth 2 (two) 18 18 ued times a day as needed for anxiety for up to 30 days. SPIRIVA RESPIMAT 2.5 Inhale 2 Act daily for 90 12 g 3 09/23/19 12/22/19 mcg/actuation mist days. At noon 18 18 ADVAIR DISKUS 250-50 Inhale 1 puff 2 (two) 60 each 3 09/23/19 12/23/19 Discontin mcg/dose DISKUS times a day. TAKE 1 PUFF 18 18 ued BY MOUTH TWICE A DAY LORAZepam (ATIVAN) 0.5 MG Take 1 tablet (0.5 mg 60 tablet 1 10/03/19 12/02/19 Discontin tablet total) by mouth 2 (two) 18 18 ued times a day as needed for anxiety for up to 30 days. ondansetron ODT DISSOLVE 1 TABLET(8 MG) 60 tablet 0 10/28/19 01/14/20 Discontin (ZOFRAN-ODT) 8 MG ON THE TONGUE EVERY 8 18 18 ued disintegrating tablet HOURS NEEDED FOR NAUSEA OR VOMITING LORAZepam (ATIVAN) 0.5 MG Twice A Day as needed for 08/07/19 12/09/19 Discontin tablet Anxiety 18 18 ued LORAZepam (ATIVAN) 0.5 MG TAKE 1 TABLET(0.5 MG) BY 60 tablet 0 12/02/19 01/01/20 Discontin tablet MOUTH TWICE DAILY 18 18 ued NEEDED FOR ANXIETY lidocaine (LMX) 5 % cream Apply to affected 3 to 4 45 g 3 12/09/19 12/09/19 Discontin cream times as needed 18 18 ued ADVAIR DISKUS 250-50 Inhale 1 puff 2 (two) 60 each 3 12/23/19 12/26/19 Discontin mcg/dose DISKUS times a day. TAKE 1 PUFF 18 18 ued BY MOUTH TWICE A DAY ADVAIR DISKUS 250-50 Inhale 1 puff 2 (two) 60 each 2 12/26/19 03/25/20 mcg/dose DISKUS times a day for 90 days. 18 18 TAKE 1 PUFF BY MOUTH TWICE A DAY LORAZepam (ATIVAN) 0.5 MG TAKE 1 TABLET(0.5 MG) BY 60 tablet 0 01/01/20 01/21/20 Discontin tablet MOUTH TWICE DAILY 18 18 ued NEEDED FOR ANXIETY ondansetron ODT Take 1 tablet (8 mg 60 tablet 0 01/14/20 01/24/20 (ZOFRAN-ODT) 8 MG total) by mouth every 8 18 18 disintegrating tablet (eight) hours as needed for nausea or vomiting for up to 10 days. LORAZepam (ATIVAN) 0.5 MG TAKE 1 TABLET(0.5 MG) BY 60 tablet 0 01/21/20 03/04/20 Discontin tablet MOUTH TWICE DAILY 18 18 ued NEEDED FOR ANXIETY LORAZepam (ATIVAN) 0.5 MG TAKE 1 TABLET(0.5 MG) BY 60 tablet 0 03/05/20 03/30/20 Discontin tablet MOUTH TWICE DAILY 18 18 ued NEEDED FOR ANXIETY Hospital, Clinic, or Ordered Dose Route Frequency Start End Date Status Other Facility Date Administered Medication denosumab (PROLIA) 60 mg subQ every 6 months 10/22/19 Active syringe 60 mgIndications: 17 Chronic vertebral fracture due to osteoporosis, initial encounter Active Problems Problem Noted Date Thyroid dysfunction 07/09/2016 Chronic vertebral fracture due to osteoporosis (HCC) 04/08/2016 Overview: reviewed results of the bone density with patient and referral given for endocrine to see is she a candidate for Forteo Thoracic compression fracture (HCC) 03/24/2016 Lumbar compression fracture (HCC) 03/07/2016 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/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 Anxiety 08/22/2015 Chronic obstructive pulmonary disease (HCC) 08/22/2015 Essential hypertension 08/22/2015 Gastroesophageal reflux disease 08/22/2015 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 Myelodysplastic syndrome (HCC) 08/22/2015 Vitamin D deficiency 08/22/2015 Encounters Date Type Specialty Care Team Description 04/08/2018 Telephone Internal Medicine May Ruiz MA 03/30/2018 Nurse Only Oncology Rashad Lux MD Myelodysplastic syndrome (Primary Dx) 03/30/2018 Orders Only Internal Medicine Essie Dumont MD 03/30/2018 Refill Internal Medicine StEssie montejo MD 03/30/2018 Refill Internal Medicine Essie Dumont MD 2018 Telephone Internal Medicine May Ruiz MA 03/16/2018 Nurse Only Oncology Rashad Lux MD Myelodysplastic syndrome (Primary Dx) 03/04/2018 Refill Internal Medicine Essie Dumont MD 03/02/2018 Nurse Only Oncology Rashad Lux MD Myelodysplastic syndrome (Primary Dx) 02/16/2018 Nurse Only Oncology Rashad Lux MD Myelodysplastic syndrome (Primary Dx) 02/02/2018 Nurse Only Oncology Rashad Lux MD Myelodysplastic syndrome (Primary Dx) 01/20/2018 Refill Internal Medicine Essie Dumont MD 01/16/2018 Nurse Only Oncology Rashad Lux MD Myelodysplastic syndrome (Primary Dx) 01/13/2018 Refill Internal Essie Cummings MD 01/02/2018 Nurse Only Oncology Rashad Lux MD Myelodysplastic syndrome (Primary Dx); Chronic vertebral fracture due to osteoporosis with routine healing, subsequent encounter 12/31/2017 Refill Internal Medicine Essie Dumont MD 12/22/2017 Refill Internal Medicine Essie Dumont MD 12/19/2017 Nurse Only Oncology Rashad Lux MD Myelodysplastic syndrome (Primary Dx); Chronic vertebral fracture due to osteoporosis with routine healing, subsequent encounter; Thyroid dysfunction; Vitamin D deficiency; Chronic vertebral fracture due to osteoporosis, initial encounter 12/19/2017 Orders Only Endocrinology Nina Carlisle MA 12/17/2017 Orders Only Internal Medicine Essie Dumont MD 12/17/2017 Orders Only Internal Medicine Stubbers, Essie G., MD Neuropathy (Primary Dx); Leg cramps 12/16/2017 Orders Only Internal Medicine May Ruiz MA 12/16/2017 Orders Only Endocrinology Nina Carlisle MA Vitamin D deficiency (Primary Dx); Thyroid dysfunction; Chronic vertebral fracture due to osteoporosis with routine healing, subsequent encounter 12/15/2017 Orders Only Hematology and Oncology Sayda Moreau, YAN 12/11/2017 Orders Only Endocrinology Nina Carlisle MA Chronic vertebral fracture due to osteoporosis with routine healing, subsequent encounter (Primary Dx); Vitamin D deficiency; Thyroid dysfunction 12/11/2017 Orders Only Endocrinology Nina Carlisle MA 12/11/2017 Orders Only Endocrinology Nina Carlisle MA 12/08/2017 Office Visit Internal Medicine Essie Dumont MD Chronic bronchitis, unspecified chronic bronchitis type (Primary Dx); Hereditary angioneurotic edema; Chronic vertebral fracture due to osteoporosis with routine healing, subsequent encounter; Myelodysplastic syndrome 12/08/2017 Orders Only Internal Medicine Essie Dumont MD 12/08/2017 [place] [facility] May Ruiz MA 12/05/2017 Nurse Only Oncology Rashad Lux MD Myelodysplastic syndrome (Primary Dx) 12/01/2017 Refill Internal Medicine Essie Dumont MD 11/27/2017 Refill Internal Medicine Essie Dumont MD 11/21/2017 Nurse Only Oncology Rashad Lux MD Myelodysplastic syndrome (Primary Dx) 11/07/2017 Nurse Only Oncology Rashad Lux MD Myelodysplastic syndrome (Primary Dx) 10/27/2017 Refill Internal Medicine Essie Dumont MD 10/25/2017 Orders Only Internal Medicine Essie Dumont MD 10/24/2017 [facility] Hematology and Oncology Rashad Lux MD Chronic vertebral Encounter fracture due to osteoporosis with routine healing, subsequent encounter; Myelodysplastic syndrome 10/24/2017 Orders Only Hematology and Oncology Sayda Moreau, WELL TESTING OPERATOR 10/22/2017 Orders Only Pharmacy Bharath [facility] PharmD 10/21/2017 Refill Internal Medicine Essie Dumont MD 10/10/2017 [facility] Hematology and Oncology Rashad Lux MD Myelodysplastic syndrome Encounter 10/02/2017 Refill Internal Medicine Essie Dumont MD 09/26/2017 [facility] Hematology and Oncology Rashad Lux MD Myelodysplastic syndrome Encounter 09/22/2017 Orders Only Internal Medicine sEsie Dumont MD 09/12/2017 [facility] Hematology and Oncology Rashad Lux MD Myelodysplastic syndrome Encounter 09/09/2017 Orders Only Internal Medicine Essie Dumont MD 09/08/2017 Refill Internal Medicine Essie Dumont MD 09/01/2017 Refill Internal Medicine Essie Dumont MD 08/29/2017 [facility] Hematology and Oncology Rashad Lxu MD Myelodysplastic syndrome Encounter 08/18/2017 Office Visit Internal Medicine Essie Dumont MD Hospital discharge follow-up (Primary Dx); Hereditary angioneurotic edema; Fungal pneumonia; Anal warts 08/15/2017 [facility] Hematology and Oncology Rashad Lux MD Myelodysplastic syndrome Encounter 08/15/2017 Refill Internal Medicine Essie Dumont MD 08/07/2017 Telephone Internal Medicine May Ruiz MA 08/01/2017 [facility] Hematology and Oncology Rashad Lux MD Canceled (Patient) Encounter 07/21/2017 Refill Internal Medicine Essie Dumont MD 07/18/2017 [facility] Hematology and Oncology Rashad Lux MD Myelodysplastic syndrome Encounter 07/18/2017 Orders Only Hematology and Oncology Sayda Moreau NP 07/17/2017 Orders Only Hematology and Oncology Sayda Moreau, YAN 07/11/2017 Refill Internal Medicine Essie Dumont MD 07/09/2017 Orders Only Hematology and Oncology Sayda Moreau NP 07/04/2017 [facility] Hematology and Oncology Rashad Lux MD Myelodysplastic syndrome Encounter 06/27/2017 Telephone Internal Medicine May Ruiz MA 06/23/2017 Telephone Internal Medicine Xander Carl MA 06/22/2017 Refill Internal Medicine Essie Dumont MD 06/20/2017 [facility] Hematology and Oncology Kendy Alvarez MD Myelodysplastic syndrome Encounter 06/20/2017 [facility] Hematology and Oncology Rashad Lux MD Myelodysplastic syndrome; Encounter Chronic vertebral fracture due to osteoporosis with routine healing, subsequent encounter 06/06/2017 Nurse Only Hematology and Oncology Kendy Alvarez MD 06/06/2017 [facility] Hematology and Oncology Rashad Lux MD Myelodysplastic syndrome; Encounter Chronic vertebral fracture due to osteoporosis with routine healing, subsequent encounter 06/06/2017 Documentation Endocrinology Nina Carlisle MA 06/06/2017 Orders Only Kendy Adkins MD Hypocalcemia (Primary Dx) 05/23/2017 Orders Only Endocrinology Nina Carlisle MA Hypocalcemia (Primary Dx) 05/22/2017 Infusion Neurology Kendy Alvarez MD Chronic vertebral BrownLacey, RN fracture due to osteoporosis with routine healing, subsequent encounter (Primary Dx); Myelodysplastic syndrome 05/22/2017 Orders Only Kendy Adkins MD Hypocalcemia (Primary Dx) 05/22/2017 Telephone Endocrinology Kendy Alvarez MD 05/16/2017 [facility] Hematology and Oncology Rashad Lux MD Myelodysplastic syndrome Encounter 05/16/2017 Refill Internal Medicine Essie Dumont MD 05/15/2017 Refill Internal Medicine Essie Dumont MD 05/02/2017 [facility] Hematology and Oncology Rashad Lux MD Myelodysplastic syndrome Encounter 05/01/2017 Office Visit Internal Medicine Essie Dumont MD Essential hypertension (Primary Dx); Myelodysplastic syndrome; Arthralgia, unspecified joint 04/25/2017 Orders Only Endocrinology Nina Carlisle MA 04/18/2017 [facility] Hematology and Oncology Rashad Lux MD Myelodysplastic syndrome Encounter 04/11/2017 Orders Only Endocrinology Nina Carlisle MA Chronic vertebral fracture due to osteoporosis with routine healing, subsequent encounter (Primary Dx) after 04/11/2017 Immunizations Name Dates Previously Given Next Due FLUZONE HIGH-DOSE PF 04/22/2017 Pneumococcal Conjugate 01/29/2017 13-Valent Family History Medical History Relation Name Comments Cancer Father Lung cancer Mother No Known Problems Sister unremarkable Relation Name Status Comments Father malignant neoplastic disease Mother Sister Alive Social History Tobacco Use Types Packs/Day Years Used Date Former Smoker Cigarettes Quit: 11/04/2014 Smokeless Tobacco: Never Used Tobacco Cessation: Counseling Given: Yes Comments: Discussed this with her and she has stopped 1 year ago Alcohol Use Drinks/Week oz/Week Comments No Sex Assigned at Date Recorded Not on file Last Filed Vital Signs Vital Sign Reading Time Taken Blood Pressure 163/75 03/30/2018 1:15 PM CDT Pulse 86 03/30/2018 1:15 PM CDT Temperature 36.6 C (97.8 F) 03/30/2018 1:15 PM CDT Respiratory Rate 18 03/30/2018 1:15 PM CDT Oxygen Saturation 99% 03/30/2018 1:15 PM CDT Inhaled Oxygen - - Concentration Weight 68 kg (150 lb) 03/30/2018 1:15 PM CDT Height 165.1 cm (5' 5") 03/30/2018 1:15 PM CDT Body Mass Index 24.96 03/30/2018 1:15 PM CDT Plan of Treatment Date Type Specialty Care Team Description 04/27/2018 Nurse Only Oncology Rashad Lux MD [address] [facility] [place] [address] [phone] 05/11/2018 Nurse Only Oncology Rashad Lux MD [address] [facility] [place] [address] [phone] 05/25/2018 Nurse Only Oncology Rashad Lux MD [address] [place] [address] [phone] 06/08/2018 Nurse Only Oncology Rashad Lux MD [address] [place] [address] [phone] 06/22/2018 Nurse Only Oncology Rashad Lux MD [address] [place] [address] [phone] Health Maintenance Due Date Last Done Comments BREAST CANCER SCREENING 2002 COLON CANCER SCREENING 2002 SHINGRIX VACCINE (#1) 2002 ZOSTER VACCINE 2012 PNEUMOCOCCAL 2017 POLYSACCHARIDE VACCINE AGE 65 AND OVER INFLUENZA VACCINE 02/04/2018 04/22/2017, 04/22/2017 PNEUMOCOCCAL-13 Completed 01/29/2017 Implants Implanted Type Area User Experience Team Lead Device Expiration Model / Identifier Date Serial / Lot Kit Cmnt Spinal Hiviscocty 11ml Spinal N/A: N/A DEPUY SPINE 01/03/2018 [id number] Confidence Plus - [id number] Implants / Implanted: 03/26/2016 (Quantity not / on file) [id number] Kit Mixer Bone Cmnt Kyphon Kyphx Surgical N/A: N/A KYPHON DIV OF 07/12/2017 [id number] / Hv-R - [id number] Implants; MEDTRONIC SPINE / Implanted: 03/08/2016 (Quantity not Expanders; [id number] on file) Extenders; Surgical Wires Procedures Procedure Name Priority Date/Time Associated Diagnosis Comments SMEAR REVIEW Routine 03/30/2018 Results for this 1:19 PM CDT procedure are in the results section. HC COMPLETE BLD COUNT Routine 03/30/2018 Myelodysplastic syndrome Results for this W/AUTO DIFF 1:19 PM CDT procedure are in the results section. MANUAL DIFFERENTIAL Routine 03/16/2018 Results for this 1:28 PM CDT procedure are in the results section. CBC WITH PLATELET AND Routine 03/16/2018 Myelodysplastic syndrome Results for this DIFFERENTIAL 1:28 PM CDT procedure are in the results section. SMEAR REVIEW Routine 03/02/2018 Results for this 1:05 PM CDT procedure are in the results section. HC COMPLETE BLD COUNT Routine 03/02/2018 Myelodysplastic syndrome Results for this W/AUTO DIFF 1:05 PM CDT procedure are in the results section. MANUAL DIFFERENTIAL Routine 02/16/2018 Results for this 1:14 PM CDT procedure are in the results section. CBC WITH PLATELET AND Routine 02/16/2018 Myelodysplastic syndrome Results for this DIFFERENTIAL 1:14 PM CDT procedure are in the results section. MANUAL DIFFERENTIAL STAT 02/02/2018 Results for this 1:40 PM CDT procedure are in the results section. CBC WITH PLATELET AND STAT 02/02/2018 Myelodysplastic syndrome Results for this DIFFERENTIAL 1:40 PM CDT procedure are in the results section. SMEAR REVIEW Routine 01/02/2018 Results for this 12:58 PM CDT procedure are in the results section. HC COMPLETE BLD COUNT Routine 01/02/2018 Myelodysplastic syndrome Results for this W/AUTO DIFF 12:58 PM CDT procedure are in the results section. SMEAR REVIEW STAT 12/19/2017 Results for this 1:24 PM CDT procedure are in the results section. IONIZED CALCIUM STAT 12/19/2017 Chronic vertebral Results for this 1:24 PM CDT fracture due to procedure are in the osteoporosis with routine results section. healing, subsequent encounter Myelodysplastic syndrome HC COMPLETE BLD COUNT STAT 12/19/2017 Myelodysplastic syndrome Results for this W/AUTO DIFF 1:24 PM CDT procedure are in the results section. ZZESTIMATED GFR Routine 12/19/2017 Results for this 1:19 PM CDT procedure are in the results section. VITAMIN D 25 HYDROXY Routine 12/19/2017 Vitamin D deficiency Results for this LEVEL 1:19 PM CDT procedure are in the results section. THYROID STIMULATING Routine 12/19/2017 Thyroid dysfunction Results for this HORMONE 1:19 PM CDT procedure are in the results section. T4, FREE Routine 12/19/2017 Thyroid dysfunction Results for this 1:19 PM CDT procedure are in the results section. COMPREHENSIVE METABOLIC Routine 12/19/2017 Chronic vertebral Results for this PANEL 1:19 PM CDT fracture due to procedure are in the osteoporosis with routine results section. healing, subsequent encounter SMEAR REVIEW Routine 12/05/2017 Results for this 12:55 PM CDT procedure are in the results section. HC COMPLETE BLD COUNT Routine 12/05/2017 Myelodysplastic syndrome Results for this W/AUTO DIFF 12:55 PM CDT procedure are in the results section. SMEAR REVIEW Routine 11/21/2017 Results for this 12:47 PM CDT procedure are in the results section. HC COMPLETE BLD COUNT Routine 11/21/2017 Myelodysplastic syndrome Results for this W/AUTO DIFF 12:47 PM CDT procedure are in the results section. SMEAR REVIEW Routine 11/07/2017 Results for this 1:20 PM CDT procedure are in the results section. HC COMPLETE BLD COUNT Routine 11/07/2017 Myelodysplastic syndrome Results for this W/AUTO DIFF 1:20 PM CDT procedure are in the results section. SMEAR REVIEW STAT 10/24/2017 Results for this 12:56 PM CDT procedure are in the results section. HC COMPLETE BLD COUNT STAT 10/24/2017 Chronic vertebral Results for this W/AUTO DIFF 12:56 PM CDT fracture due to procedure are in the osteoporosis with routine results section. healing, subsequent encounter Myelodysplastic syndrome SMEAR REVIEW Routine 10/10/2017 Results for this 1:05 PM CDT procedure are in the results section. HC COMPLETE BLD COUNT Routine 10/10/2017 Myelodysplastic syndrome Results for this W/AUTO DIFF 1:05 PM CDT procedure are in the results section. SMEAR REVIEW Routine 09/26/2017 Results for this 1:00 PM CDT procedure are in the results section. HC COMPLETE BLD COUNT Routine 09/26/2017 Myelodysplastic syndrome Results for this W/AUTO DIFF 1:00 PM CDT procedure are in the results section. SMEAR REVIEW Routine 09/12/2017 Results for this 1:01 PM [employer]ES [employer]IVITY MANAGER procedure are in the results section. HC COMPLETE BLD COUNT Routine 09/12/2017 Myelodysplastic syndrome Results for this W/AUTO DIFF 1:01 PM SALES ACTIVITY MANAGER procedure are in the results section. SMEAR REVIEW Routine 08/29/2017 Results for this 1:16 PM SALES ACTIVITY MANAGER procedure are in the results section. HC COMPLETE BLD COUNT Routine 08/29/2017 Myelodysplastic syndrome Results for this W/AUTO DIFF 1:16 PM SALES ACTIVITY MANAGER procedure are in the results section. MANUAL DIFFERENTIAL Routine 08/15/2017 Results for this 12:53 PM SALES ACTIVITY MANAGER procedure are in the results section. CBC WITH PLATELET AND Routine 08/15/2017 Myelodysplastic syndrome Results for this DIFFERENTIAL 12:53 PM SALES ACTIVITY MANAGER procedure are in the results section. SMEAR REVIEW Routine 07/04/2017 Results for this 12:58 PM SALES ACTIVITY MANAGER procedure are in the results section. HC COMPLETE BLD COUNT Routine 07/04/2017 Myelodysplastic syndrome Results for this W/AUTO DIFF 12:58 PM SALES ACTIVITY MANAGER procedure are in the results section. CALCIUM LEVEL STAT 06/20/2017 Chronic vertebral Results for this 1:05 PM SALES ACTIVITY MANAGER fracture due to procedure are in the osteoporosis with routine results section. healing, subsequent encounter Myelodysplastic syndrome MANUAL DIFFERENTIAL Routine 06/20/2017 Results for this 12:52 PM SALES ACTIVITY MANAGER procedure are in the results section. CBC WITH PLATELET AND Routine 06/20/2017 Myelodysplastic syndrome Results for this DIFFERENTIAL 12:52 PM SALES ACTIVITY MANAGER procedure are in the results section. ZZESTIMATED GFR STAT 06/06/2017 Results for this 1:20 PM SALES ACTIVITY MANAGER procedure are in the results section. COMPREHENSIVE METABOLIC STAT 06/06/2017 Results for this PANEL 1:20 PM SALES ACTIVITY MANAGER procedure are in the results section. IONIZED CALCIUM STAT 06/06/2017 Results for this 1:20 PM SALES ACTIVITY MANAGER procedure are in the results section. SMEAR REVIEW Routine 06/06/2017 Results for this 12:43 PM SALES ACTIVITY MANAGER procedure are in the results section. HC COMPLETE BLD COUNT Routine 06/06/2017 Myelodysplastic syndrome Results for this W/AUTO DIFF 12:43 PM SALES ACTIVITY MANAGER procedure are in the results section. SMEAR REVIEW STAT 05/22/2017 Results for this 11:29 AM SALES ACTIVITY MANAGER procedure are in the results section. HC COMPLETE BLD COUNT STAT 05/22/2017 Myelodysplastic syndrome Results for this W/AUTO DIFF 11:29 AM SALES ACTIVITY MANAGER procedure are in the results section. CALCIUM LEVEL STAT 05/22/2017 Chronic vertebral Results for this 11:29 AM SALES ACTIVITY MANAGER fracture due to procedure are in the osteoporosis with routine results section. healing, subsequent encounter Myelodysplastic syndrome SMEAR REVIEW Routine 05/16/2017 Results for this 12:56 PM SALES ACTIVITY MANAGER procedure are in the results section. HC COMPLETE BLD COUNT Routine 05/16/2017 Myelodysplastic syndrome Results for this W/AUTO DIFF 12:56 PM SALES ACTIVITY MANAGER procedure are in the results section. SMEAR REVIEW Routine 05/02/2017 Results for this 1:04 PM CDT procedure are in the results section. HC COMPLETE BLD COUNT Routine 05/02/2017 Myelodysplastic syndrome Results for this W/AUTO DIFF 1:04 PM CDT procedure are in the results section. SMEAR REVIEW Routine 04/18/2017 Results for this 1:02 PM CDT procedure are in the results section. HC COMPLETE BLD COUNT Routine 04/18/2017 Myelodysplastic syndrome Results for this W/AUTO DIFF 1:02 PM CDT procedure are in the results section. after 04/11/2017 Results * Smear review (03/30/2018 1:19 PM) Only the most recent of 18 results within the time period is included. Platelet slide review Efrain adequate [facility] DEPARTMENT OF PATHOLOGY AND GENOMIC MEDICINE Tear drop cells Occasional [facility] DEPARTMENT OF PATHOLOGY AND GENOMIC MEDICINE Schistocytes Occasional [facility] DEPARTMENT OF PATHOLOGY AND GENOMIC MEDICINE Ovalocytes Moderate [facility] DEPARTMENT OF PATHOLOGY AND GENOMIC MEDICINE Enlarged platelets Moderate (A) [facility] DEPARTMENT OF PATHOLOGY AND GENOMIC MEDICINE Performing Organization Address City/State/Zipcode Phone Number [address] [address] PATHOLOGY AND GENOMIC MEDICINE * CBC with platelet and differential (03/30/2018 1:19 PM) Only the most recent of 23 results within the time period is included. WBC 5.23 4.50 - 11.00 k/uL [facility] DEPARTMENT OF PATHOLOGY AND GENOMIC MEDICINE RBC 3.18 (L) 4.20 - 5.50 m/uL [facility] DEPARTMENT OF PATHOLOGY AND GENOMIC MEDICINE HGB 8.3 (L) 12.0 - 16.0 g/dL [facility] DEPARTMENT OF PATHOLOGY AND GENOMIC MEDICINE HCT 27.5 (L) 37.0 - 47.0 % [facility] DEPARTMENT OF PATHOLOGY AND GENOMIC MEDICINE MCV 86.5 82.0 - 100.0 fL [facility] DEPARTMENT OF PATHOLOGY AND GENOMIC MEDICINE MCH 26.1 (L) 27.0 - 34.0 pg [facility] DEPARTMENT OF PATHOLOGY AND GENOMIC MEDICINE MCHC 30.2 (L) 31.0 - 37.0 g/dL [facility] DEPARTMENT OF PATHOLOGY AND GENOMIC MEDICINE RDW - SD 70.3 (H) 37.0 - 55.0 fL [facility] DEPARTMENT OF PATHOLOGY AND GENOMIC MEDICINE MPV SEE COMMENTComment: No report 8.8 - 13.2 fL [facility] DEPARTMENT OF PATHOLOGY AND GENOMIC MEDICINE Platelet count 173 150 - 400 k/uL [facility] DEPARTMENT OF PATHOLOGY AND GENOMIC MEDICINE Neutrophils 60.6 39.0 - 69.0 % [facility] DEPARTMENT OF PATHOLOGY AND GENOMIC MEDICINE Lymphocytes 28.5 25.0 - 45.0 % [facility] DEPARTMENT OF PATHOLOGY AND GENOMIC MEDICINE Monocytes 7.1 0.0 - 10.0 % [facility] DEPARTMENT OF PATHOLOGY AND GENOMIC MEDICINE Eosinophils 2.7 0.0 - 5.0 % [facility] DEPARTMENT OF PATHOLOGY AND GENOMIC MEDICINE Basophils 1.1 (H) 0.0 - 1.0 % [facility] DEPARTMENT OF PATHOLOGY AND GENOMIC MEDICINE Specimen Blood Performing Organization Address City/State/Zipcode Phone Number [address] [address] PATHOLOGY AND GENOMIC MEDICINE * Manual differential (03/16/2018 1:28 PM) Only the most recent of 5 results within the time period is included. Manual differential PERFORMED [facility] DEPARTMENT OF PATHOLOGY AND GENOMIC MEDICINE Neutrophils 69.0 39.0 - 69.0 % [facility] DEPARTMENT OF PATHOLOGY AND GENOMIC MEDICINE Lymphocytes 28.0 25.0 - 45.0 % [facility] DEPARTMENT OF PATHOLOGY AND GENOMIC MEDICINE Monocytes 3.0 0.0 - 10.0 % [facility] DEPARTMENT OF PATHOLOGY AND GENOMIC MEDICINE Eosinophils 0.0 0.0 - 5.0 % [facility] DEPARTMENT OF PATHOLOGY AND GENOMIC MEDICINE Basophils 0.0 0.0 - 1.0 % [facility] DEPARTMENT OF PATHOLOGY AND GENOMIC MEDICINE Metamyelocytes 0 % [facility] DEPARTMENT OF PATHOLOGY AND GENOMIC MEDICINE Promyelocytes 0 % [facility] DEPARTMENT OF PATHOLOGY AND GENOMIC MEDICINE Nucleated RBC 1 /100 WBC [facility] DEPARTMENT OF PATHOLOGY AND GENOMIC MEDICINE Platelet slide review Efrain adequate [facility] DEPARTMENT OF PATHOLOGY AND GENOMIC MEDICINE Anisocytosis Marked (A) [facility] DEPARTMENT OF PATHOLOGY AND GENOMIC MEDICINE Tear drop cells Occasional [facility] DEPARTMENT OF PATHOLOGY AND GENOMIC MEDICINE Ovalocytes Moderate [facility] DEPARTMENT OF PATHOLOGY AND GENOMIC MEDICINE Enlarged platelets Moderate (A) [facility] DEPARTMENT OF PATHOLOGY AND GENOMIC MEDICINE Performing Organization Address City/[facility] [place] [address] PATHOLOGY AND GENOMIC MEDICINE * Ionized calcium (12/19/2017 1:24 PM) Only the most recent of 2 results within the time period is included. pH 7.34 [facility] DEPARTMENT OF PATHOLOGY AND GENOMIC MEDICINE Ionized calcium 1.11 1.11 - 1.32 mmol/L [facility] DEPARTMENT OF PATHOLOGY AND GENOMIC MEDICINE Specimen Plasma specimen Performing Organization Address City/State/[place] [address] PATHOLOGY AND GENOMIC [facility] * Estimated GFR (12/19/2017 1:19 PM) Only the most recent of 2 results within the time period is included. GFR Non Af Amer 50 (A) mL/min/1.73 m2 [facility] DEPARTMENT OF PATHOLOGY AND GENOMIC MEDICINE GFR Af Amer 60 mL/min/1.73 m2 [facility] DEPARTMENT OF Comment: PATHOLOGY AND Chronic kidney disease: <60 GENOMIC MEDICINE mL/min/1.73m2 Kidney failure: <15 mL/min/1.73m2 The estimated GFR is calculated from the IDMS-traceable Modification of Diet in Renal Disease Equation. The accuracy of the calculation is poor when the creatinine is normal. Calculated values >90 mL/min/1.73m2 are not reported. This equation has not been validated in children (<18 years), women, the elderly (>70 years), or ethnic groups other than Caucasians and Americans. Specimen Plasma specimen Performing Organization Address City/State/[place] [address] PATHOLOGY AND GENOMIC MEDICINE * Vitamin D 25 hydroxy level (12/19/2017 1:19 PM) Vitamin D, 25-hydroxy 45.1 30.0 - 150.0 ng/mL [facility] DEPARTMENT OF Comment: PATHOLOGY AND This assay reports the sum of GENOMIC MEDICINE 25-hydroxy vitamin D3 and 25-hydroxy vitamin D2. Reference range: 0-17 years: Deficiency: less than 20ng/mL Optimum level: greater than or equal to 20 ng/mL. 18 years and older: Deficiency: less than 20ng/mL Insufficiency: 20-29 ng/mL Optimum Level: 30-80 ng/mL The assay reportable range is 3.4155.9 ng/mL. Levels higher than 150 ng/mL may be associated with toxicity. If toxicity is clinically suspected and the reported result is >155.9 ng/mL,contact lab for alternative methods to obtain a definitivelevel. If separate quantitation of 25-hydroxy vitamin D3 and 25-hydroxy vitamin D2 is needed, please contact lab for alternative methods. Specimen Blood Performing Organization Address [facility]/[place] [address] PATHOLOGY AND [employer] MEDICINE * Thyroid stimulating hormone (12/19/2017 1:19 PM) TSH 5.96 (H) 0.27 - 4.20 uIU/mL [facility] DEPARTMENT OF PATHOLOGY AND [employer] MEDICINE Specimen Plasma specimen Performing Organization Address City/[facility] [place] [address] PATHOLOGY AND [employer] MEDICINE * T4, free (12/19/2017 1:19 PM) T4, free 1.2 0.9 - 1.7 ng/dL [facility] DEPARTMENT OF PATHOLOGY AND GENOMIC MEDICINE Specimen Plasma specimen Performing Organization Address City/[facility]/[place] [address] PATHOLOGY AND [employer] MEDICINE * Comprehensive metabolic panel (12/19/2017 1:19 PM) Only the most recent of 2 results within the time period is included. Sodium 140 135 - 148 mEq/L [facility] DEPARTMENT OF PATHOLOGY AND GENOMIC MEDICINE Potassium 4.0 3.5 - 5.0 mEq/L [facility] DEPARTMENT OF PATHOLOGY AND GENOMIC MEDICINE Chloride 100 98 - 112 mEq/L [facility] DEPARTMENT OF PATHOLOGY AND GENOMIC MEDICINE CO2 31 24 - 31 mEq/L [facility] DEPARTMENT OF PATHOLOGY AND GENOMIC MEDICINE Anion gap 9@ANIO 7 - 15 mEq/L [facility] DEPARTMENT OF PATHOLOGY AND GENOMIC MEDICINE BUN 26 (H) 8 - 23 mg/dL [facility] DEPARTMENT OF PATHOLOGY AND GENOMIC MEDICINE Creatinine 1.1 (H) 0.5 - 0.9 mg/dL [facility] DEPARTMENT OF PATHOLOGY AND GENOMIC MEDICINE Glucose 85 65 - 99 mg/dL [facility] DEPARTMENT OF PATHOLOGY AND GENOMIC MEDICINE Calcium 9.0 8.8 - 10.2 mg/dL [facility] DEPARTMENT OF PATHOLOGY AND GENOMIC MEDICINE Protein 6.4 6.3 - 8.3 g/dL [facility] DEPARTMENT OF Comment: PATHOLOGY AND GENOMIC MEDICINE 4.6-7.0 g/dL 1 week 4.4-7.6 g/dL 7 months-1year 5.1-7.3 g/dL 1-2 years5.6-7 .5 g/dL >3 years6.0-8 .0 g/dL 18-150 6.3-8.3 g/dL Albumin 3.4 (L) 3.5 - 5.0 g/dL [facility] DEPARTMENT OF PATHOLOGY AND GENOMIC MEDICINE A/G ratio 1.1 0.7 - 3.8 [facility] DEPARTMENT OF PATHOLOGY AND GENOMIC MEDICINE Alkaline phosphatase 63 35 - 104 U/L [facility] DEPARTMENT OF PATHOLOGY AND GENOMIC MEDICINE AST 31 10 - 35 U/L [facility] DEPARTMENT OF PATHOLOGY AND GENOMIC MEDICINE ALT 18 5 - 50 U/L [facility] DEPARTMENT OF PATHOLOGY AND GENOMIC MEDICINE Total bilirubin 0.6 0.0 - 1.2 mg/dL [facility] DEPARTMENT OF PATHOLOGY AND GENOMIC MEDICINE Specimen Plasma specimen Performing Organization Address City/[facility] Phone Number [facility] DEPARTMENT [address] [address] PATHOLOGY AND GENOMIC MEDICINE * Calcium level (06/20/2017 1:05 PM) Only the most recent of 2 results within the time period is included. Calcium 9.6 8.8 - 10.2 mg/dL [facility] DEPARTMENT OF PATHOLOGY AND GENOMIC MEDICINE Specimen Plasma specimen Performing Organization Address City/[facility]ode Phone Number [facility] DEPARTMENT [address] [address] PATHOLOGY AND GENOMIC MEDICINE after 04/11/2017 Insurance Payer Benefit Subscriber ID Type Phone Address Plan / Group MEDICARE MEDICARE xxxxxxxxxxx Medicare [place] PART A AND B AARP AARP xxxxxxxxxxx Commercial SUPPLEMENT Work: [address] [place] [id number] Home: [employer] Self 1950 Work: [address] [facility] [place] [id number] Home:
--- OUTSIDE RECORDS SUMMARY | 2018-04-21 11:52 | XMS REPORT | Clinical Summary ---
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 traMADol (ULTRAM) 50 mg Take 1 tablet [...] Refill Internal Medicine Essie Dumont MD 2018 [facility] May Ruiz MA 03/16/2018 Nurse Only Oncology Rashad Lux MD Myelodysplastic syndrome (Primary Dx) 03/04/2018 Refill Internal Medicine Essie Dumont MD 03/02/2018 Nurse Only Oncology Rashad Lux MD Myelodysplastic syndrome (Primary Dx) 02/16/2018 Nurse Only Oncology Rashad Lux MD Myelodysplastic syndrome (Primary Dx) 02/02/2018 Nurse Only Oncology Rashad Lux MD Myelodysplastic syndrome (Primary Dx) 01/20/2018 Refill Internal Medicine StEssie montejo MD 01/16/2018 Nurse Only Oncology Rashad Lux MD Myelodysplastic syndrome (Primary Dx) 01/13/2018 Refill Internal Medicine Essie Dumont MD 01/02/2018 Nurse Only Oncology Rashad Lux [...] Dumont MD 12/17/2017 Orders Only Internal Medicine StEssie montejo MD Neuropathy (Primary Dx); Leg cramps 12/16/2017 Orders Only Internal Medicine May Ruiz MA 12/16/2017 Orders Only Endocrinology Nina Carlisle MA Vitamin D deficiency (Primary Dx); Thyroid dysfunction; Chronic vertebral fracture due to osteoporosis with routine healing, subsequent encounter 12/15/2017 Orders Only Hematology and Oncology Sayda Moreau NP 12/11/2017 Orders Only Endocrinology Nina Carlisle MA [...] Only Internal Medicine Essie Dumont MD 12/08/2017 [facility] May Ruiz MA 12/05/2017 Nurse [...] Only Internal Medicine Essie Dumont MD 10/24/2017 [facility] Hematology and Oncology Rashad Lux MD Chronic vertebral Encounter fracture due to osteoporosis with routine healing, subsequent encounter; Myelodysplastic syndrome 10/24/2017 Orders Only Hematology and Oncology Sayda Moreau, YAN 10/22/2017 Orders Only Pharmacy Bharath Kraft PharmD 10/21/2017 Refill Internal Medicine Essie Dumont MD 10/10/2017 [facility] Hematology and Oncology Rashad Lux MD Myelodysplastic syndrome Encounter 10/02/2017 Refill Internal Medicine Essie Dumont MD 09/26/2017 [facility] Hematology and Oncology Rashad Lux MD Myelodysplastic syndrome Encounter 09/22/2017 Orders Only Internal Medicine Essie Dumont MD 09/12/2017 [facility] Hematology and Oncology Rashad Lux MD Myelodysplastic syndrome Encounter 09/09/2017 Orders Only Internal Medicine Essie Dumont MD 09/08/2017 Refill Internal Medicine Essie Dumont MD 09/01/2017 Refill Internal Medicine Essie Dumont MD 08/29/2017 [facility] Hematology and Oncology Rashad Lux MD Myelodysplastic syndrome Encounter 08/18/2017 Office Visit Internal Medicine Essie Dumont MD Hospital discharge follow-up (Primary Dx); Hereditary angioneurotic edema; Fungal pneumonia; Anal warts 08/15/2017 [facility] Hematology and Oncology Rashad Lux MD Myelodysplastic syndrome Encounter 08/15/2017 Refill Internal Medicine Essie Dumont MD 08/07/2017 Telephone Internal Medicine May Ruiz MA 08/01/2017 [facility] Hematology and Oncology Rashad Lux MD Canceled (Patient) Encounter 07/21/2017 Refill Internal Medicine Essie Dumont MD 07/18/2017 [facility] Hematology and Oncology Rashad Lux MD Myelodysplastic syndrome Encounter 07/18/2017 Orders Only Hematology and Oncology Sayda Moreau, YAN 07/17/2017 Orders Only Hematology and Oncology Sayda Moreau, YAN 07/11/2017 Refill Internal Essie Cummings MD 07/09/2017 Orders Only Hematology and Oncology Sayda Moreau, YAN 07/04/2017 [facility] Hematology and Oncology Rashad Lux MD Myelodysplastic syndrome Encounter 06/27/2017 Telephone Internal Medicine May Ruiz MA 06/23/2017 Telephone Internal Medicine Xander Carl MA 06/22/2017 Refill Internal Medicine Essie Dumont MD 06/20/2017 [facility] Hematology and Oncology Kendy Alvarez MD Myelodysplastic syndrome Encounter 06/20/2017 [facility] Hematology and Oncology Rashad Lux MD Myelodysplastic syndrome; Encounter Chronic vertebral fracture due to osteoporosis with routine healing, subsequent encounter 06/06/2017 Nurse Only Hematology and Oncology Kendy Alvarez MD 06/06/2017 [facility] Hematology and Oncology Rashad Lux MD Myelodysplastic syndrome; Encounter Chronic vertebral fracture due to osteoporosis with routine healing, subsequent encounter 06/06/2017 Documentation Endocrinology Nina Carlisle MA 06/06/2017 Orders Only Endocrinology Kendy Alvarez MD Hypocalcemia (Primary Dx) 05/23/2017 Orders Only Endocrinology Nina Carlisle MA Hypocalcemia (Primary Dx) 05/22/2017 Infusion Neurology Kendy Alvarez MD Chronic vertebral BrownLacey, RN fracture due to osteoporosis with routine healing, subsequent encounter (Primary Dx); Myelodysplastic syndrome 05/22/2017 Orders Only Kendy Adkins MD Hypocalcemia (Primary Dx) 05/22/2017 Telephone Kendy Adkins MD 05/16/2017 [facility] Hematology and Oncology Rashad Lux MD Myelodysplastic syndrome Encounter 05/16/2017 Refill Internal Medicine Essie Dumont MD 05/15/2017 Refill Internal Medicine Essie Dumont MD 05/02/2017 [facility] Hematology and Oncology Rashad Lux MD Myelodysplastic syndrome Encounter 05/01/2017 Office Visit Internal Medicine Essie Dumont MD Essential hypertension (Primary Dx); Myelodysplastic syndrome; Arthralgia, unspecified joint 04/25/2017 Orders Only Endocrinology Nina Carlisle MA 04/18/2017 [facility] Hematology and Oncology Rashad Lux MD Myelodysplastic syndrome Encounter after 04/12/2017 Immunizations Name Dates Previously Given Next Due [...] 04/27/2018 Nurse Only Oncology Rashad Lux MD [address] [facility] [place] [address] [phone] 05/11/2018 Nurse Only Oncology Rashad Lux MD [address] [place] [address] [phone] 05/25/2018 Nurse Only Oncology Rashad Lux MD [address] [place] [address] [phone] 06/08/2018 Nurse Only Oncology Rashad Lux MD [address] [facility] [place] [address] [phone] 06/22/2018 Nurse Only Oncology Rashad Lux MD [address] [place] [address] [phone] Health Maintenance Due Date Last Done Comments BREAST CANCER SCREENING 2002 COLON CANCER SCREENING 2002 SHINGRIX VACCINE (#1) 2002 ZOSTER VACCINE 2012 PNEUMOCOCCAL 2017 POLYSACCHARIDE VACCINE AGE 65 AND OVER INFLUENZA VACCINE 02/04/2018 04/22/2017, 04/22/2017 PNEUMOCOCCAL-13 Completed 01/29/2017 Implants Implanted Type Area Patrol Community Service Officer Device Expiration Model / Identifier Date Serial / Lot Kit Cmnt Spinal Hiviscocty 11ml Spinal N/A: N/A DEPUY SPINE 01/03/2018 [id number] Confidence Plus - [id number] Implants / Implanted: 03/26/2016 (Quantity not / on file) HVHBGK Kit Mixer Bone Cmnt Kyphon Kyphx Surgical N/A: N/A KYPHON DIV OF 07/12/2017 C01B / Hv-R - [id number] Implants; MEDTRONIC SPINE / Implanted: 03/08/2016 (Quantity not Expanders; [id number] on file) Extenders; Surgical Wires Procedures Procedure [...] Routine 09/12/2017 Results for this 1:01 PM [employer]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 HC COMPLETE BLD COUNT Routine 09/12/2017 Myelodysplastic syndrome Results for this W/AUTO DIFF 1:01 PM 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 SMEAR REVIEW Routine 08/29/2017 Results for this 1:16 PM 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 HC COMPLETE BLD COUNT Routine 08/29/2017 Myelodysplastic syndrome Results for this W/AUTO DIFF 1:16 PM 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 MANUAL DIFFERENTIAL Routine 08/15/2017 Results for this 12:53 PM 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 CBC WITH PLATELET AND Routine 08/15/2017 Myelodysplastic syndrome Results for this DIFFERENTIAL 12:53 PM 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 SMEAR REVIEW Routine 07/04/2017 Results for this 12:58 PM 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 HC COMPLETE BLD COUNT Routine 07/04/2017 Myelodysplastic syndrome Results for this W/AUTO DIFF 12:58 PM 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 CALCIUM LEVEL STAT 06/20/2017 Chronic vertebral Results for this 1:05 PM [employer] INST[employer]ER fracture due to procedure are in the osteoporosis with routine results section. healing, subsequent encounter Myelodysplastic syndrome MANUAL DIFFERENTIAL Routine 06/20/2017 Results for this 12:52 PM 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 CBC WITH PLATELET AND Routine 06/20/2017 Myelodysplastic syndrome Results for this DIFFERENTIAL 12:52 PM 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 ZZESTIMATED GFR STAT 06/06/2017 Results for this 1:20 PM 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 COMPREHENSIVE METABOLIC STAT 06/06/2017 Results for this PANEL 1:20 PM 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 IONIZED CALCIUM STAT 06/06/2017 Results for this 1:20 PM 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 SMEAR REVIEW Routine 06/06/2017 Results for this 12:43 PM 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 HC COMPLETE BLD COUNT Routine 06/06/2017 Myelodysplastic syndrome Results for this W/AUTO DIFF 12:43 PM 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 SMEAR REVIEW STAT 05/22/2017 Results for this 11:29 AM 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 HC COMPLETE BLD COUNT STAT 05/22/2017 Myelodysplastic syndrome Results for this W/AUTO DIFF 11:29 AM 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 CALCIUM LEVEL STAT 05/22/2017 Chronic vertebral Results for this 11:29 AM [employer] INST[employer]ER fracture due to procedure are in the osteoporosis with routine results section. healing, subsequent encounter Myelodysplastic syndrome SMEAR REVIEW Routine 05/16/2017 Results for this 12:56 PM 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 HC COMPLETE BLD COUNT Routine 05/16/2017 Myelodysplastic syndrome Results for this W/AUTO DIFF 12:56 PM 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 SMEAR [...] procedure are in the results section. after 04/12/2017 Results * Smear review (03/30/2018 1:19 PM) Only the most recent of 18 results within the time period is included. Platelet slide review Efrain adequate [facility] OF PATHOLOGY AND GENOMIC MEDICINE Tear drop cells Occasional [facility]Y AND GENOMIC MEDICINE Schistocytes Occasional [facility]Y AND GENOMIC MEDICINE Ovalocytes Moderate [facility]Y AND GENOMIC MEDICINE Enlarged platelets Moderate (A) [facility] PATHOLOGY AND GENOMIC MEDICINE Performing Organization Address City/State/Zipcode Phone Number [facility] [address] [place] [address] PATHOLOGY AND GENOMIC MEDICINE * CBC with platelet and differential (03/30/2018 1:19 PM) Only the most recent of 23 results within the time period is included. WBC 5.23 4.50 - 11.00 k/uL [facility] OF PATHOLOGY AND GENOMIC MEDICINE RBC 3.18 (L) 4.20 - 5.50 m/uL [facility]OLOGY AND GENOMIC MEDICINE HGB 8.3 (L) 12.0 - 16.0 g/dL [facility] PATHOLOGY AND GENOMIC MEDICINE HCT 27.5 (L) 37.0 - 47.0 % [facility]OLOGY AND GENOMIC MEDICINE MCV 86.5 82.0 - 100.0 fL [facility]OLOGY AND GENOMIC MEDICINE MCH 26.1 (L) 27.0 - 34.0 pg [facility] PATHOLOGY AND GENOMIC MEDICINE MCHC 30.2 (L) 31.0 - 37.0 g/dL [facility] PATHOLOGY AND GENOMIC MEDICINE RDW - SD 70.3 (H) 37.0 - 55.0 fL [facility] OF PATHOLOGY AND GENOMIC MEDICINE MPV SEE COMMENTComment: No report 8.8 - 13.2 fL [facility] PATHOLOGY AND GENOMIC MEDICINE Platelet count 173 150 - 400 k/uL [facility] PATHOLOGY AND GENOMIC MEDICINE Neutrophils 60.6 39.0 - 69.0 % [facility]OLOGY AND GENOMIC MEDICINE Lymphocytes 28.5 25.0 - 45.0 % [facility] PATHOLOGY AND GENOMIC MEDICINE Monocytes 7.1 0.0 - 10.0 % [facility] PATHOLOGY AND GENOMIC MEDICINE Eosinophils 2.7 0.0 - 5.0 % [facility] PATHOLOGY AND GENOMIC MEDICINE Basophils 1.1 (H) 0.0 - 1.0 % [facility] PATHOLOGY AND GENOMIC MEDICINE Specimen Blood Performing Organization Address City/State/Zipcode Phone Number [address] [address] PATHOLOGY AND GENOMIC MEDICINE * Manual differential (03/16/2018 1:28 PM) Only the most recent of 5 results within the time period is included. Manual differential PERFORMED [facility] OF PATHOLOGY AND GENOMIC MEDICINE Neutrophils 69.0 39.0 - 69.0 % [facility] PATHOLOGY AND GENOMIC MEDICINE Lymphocytes 28.0 25.0 - 45.0 % [facility] OF PATHOLOGY AND GENOMIC MEDICINE Monocytes 3.0 0.0 - 10.0 % [facility] PATHOLOGY AND GENOMIC MEDICINE Eosinophils 0.0 0.0 - 5.0 % [facility] PATHOLOGY AND GENOMIC MEDICINE Basophils 0.0 0.0 - 1.0 % [facility] PATHOLOGY AND GENOMIC MEDICINE Metamyelocytes 0 % [facility] PATHOLOGY AND GENOMIC MEDICINE Promyelocytes 0 % [facility] PATHOLOGY AND GENOMIC MEDICINE Nucleated RBC 1 /100 WBC [facility] PATHOLOGY AND GENOMIC MEDICINE Platelet slide review Efrain adequate [facility] PATHOLOGY AND GENOMIC MEDICINE Anisocytosis Marked (A) [facility] PATHOLOGY AND GENOMIC MEDICINE Tear drop cells Occasional [facility] PATHOLOGY AND GENOMIC MEDICINE Ovalocytes Moderate [facility] PATHOLOGY AND GENOMIC MEDICINE Enlarged platelets Moderate (A) [facility]OLOGY AND GENOMIC MEDICINE Performing Organization Address City/[facility] [place] [address] PATHOLOGY AND GENOMIC MEDICINE * Ionized calcium (12/19/2017 1:24 PM) Only the most recent of 2 results within the time period is included. pH 7.34 [facility] PATHOLOGY AND GENOMIC MEDICINE Ionized calcium 1.11 1.11 - 1.32 mmol/L [facility] OF PATHOLOGY AND GENOMIC MEDICINE Specimen Plasma specimen Performing Organization Address [facility] Phone Number [address] [address] PATHOLOGY AND GENOMIC MEDICINE * Estimated GFR (12/19/2017 1:19 PM) Only the most recent of 2 results within the time period is included. GFR Non Af Amer 50 (A) mL/min/1.73 m2 [facility] PATHOLOGY AND GENOMIC MEDICINE GFR Af Amer 60 mL/min/1.73 m2 [facility] Comment: PATHOLOGY AND Chronic kidney [...] Americans. Specimen Plasma specimen Performing Organization Address City/[facility]/[place] [address] PATHOLOGY AND GENOMIC MEDICINE * Vitamin D 25 hydroxy level (12/19/2017 1:19 PM) Vitamin D, 25-hydroxy 45.1 30.0 - 150.0 ng/mL [facility] Comment: PATHOLOGY AND This assay reports the sum of [employer] 25-hydroxy vitamin D3 and 25-hydroxy vitamin D2. [...] alternative methods. Specimen Blood Performing Organization Address City/[facility]/[place] [address] PATHOLOGY AND [employer] [facility] * Thyroid stimulating hormone (12/19/2017 1:19 PM) TSH 5.96 (H) 0.27 - 4.20 uIU/mL [facility] DEPARTMENT OF PATHOLOGY [facility] [employer] MEDICINE Specimen Plasma specimen Performing Organization Address [facility] [place] [address] PATHOLOGY AND [employer] [facility] * T4, free (12/19/2017 1:19 PM) T4, free 1.2 0.9 - 1.7 ng/dL [facility] DEPARTMENT OF PATHOLOGY AND [employer] MEDICINE Specimen Plasma specimen Performing Organization Address [facility] [place] [address] PATHOLOGY AND [employer] [facility] * Comprehensive metabolic panel (12/19/2017 1:19 PM) Only the most recent of 2 results within the time period is included. Sodium 140 135 - 148 mEq/L [facility] OF PATHOLOGY AND GENOMIC MEDICINE Potassium 4.0 3.5 - 5.0 mEq/L [facility] OF PATHOLOGY AND GENOMIC MEDICINE Chloride 100 98 - 112 mEq/L [facility] OF PATHOLOGY AND GENOMIC MEDICINE CO2 31 24 - 31 mEq/L [facility] OF PATHOLOGY AND GENOMIC MEDICINE Anion gap 9@ANIO 7 - 15 mEq/L [facility] OF PATHOLOGY AND GENOMIC MEDICINE BUN 26 (H) 8 - 23 mg/dL [facility] PATHOLOGY AND GENOMIC MEDICINE Creatinine 1.1 (H) 0.5 - 0.9 mg/dL [facility] OF PATHOLOGY AND GENOMIC MEDICINE Glucose 85 65 - 99 mg/dL [facility] OF PATHOLOGY AND GENOMIC MEDICINE Calcium 9.0 8.8 - 10.2 mg/dL [facility] OF PATHOLOGY AND GENOMIC MEDICINE Protein 6.4 6.3 - 8.3 g/dL [facility] Comment: PATHOLOGY AND GENOMIC MEDICINE 4.6-7.0 g/dL 1 week 4.4-7.6 g/dL 7 months-1year 5.1-7.3 g/dL 1-2 years5.6-7 .5 g/dL >3 years6.0-8 .0 g/dL 18-150 6.3-8.3 g/dL Albumin 3.4 (L) 3.5 - 5.0 g/dL [facility] OF PATHOLOGY AND GENOMIC MEDICINE A/G ratio 1.1 0.7 - 3.8 [facility] OF PATHOLOGY AND GENOMIC MEDICINE Alkaline phosphatase 63 35 - 104 U/L [facility] OF PATHOLOGY AND GENOMIC MEDICINE AST 31 10 - 35 U/L [facility] OF PATHOLOGY AND GENOMIC MEDICINE ALT 18 5 - 50 U/L [facility] OF PATHOLOGY AND GENOMIC MEDICINE Total bilirubin 0.6 0.0 - 1.2 mg/dL [facility] OF PATHOLOGY AND GENOMIC MEDICINE Specimen Plasma specimen Performing Organization Address City/[facility] Phone Number [facility] [address] [place] [address] PATHOLOGY AND GENOMIC MEDICINE * Calcium level (06/20/2017 1:05 PM) Only the most recent of 2 results within the time period is included. Calcium 9.6 8.8 - 10.2 mg/dL [facility] OF PATHOLOGY AND GENOMIC MEDICINE Specimen Plasma specimen Performing Organization Address City/State/[facility] Phone Number [facility] [address] [place] [address] PATHOLOGY AND GENOMIC MEDICINE after 04/12/2017 Insurance Payer Benefit Subscriber ID Type Phone Address Plan / Group MEDICARE MEDICARE xxxxxxxxxxx Medicare [place], [place] PART A AND B AARP AARP xxxxxxxxxxx Commercial SUPPLEMENT Work: [id number] [place] [id number] Home: [employer] [employer] Self 1950 Work: [address] [place] [id number] Home:
[2018-04-21 12:00] VITALS: BP 161/63
--- NOTE | 2018-04-21 13:51 | Discharge Summary ---
PRIMARY CARE DOCTOR: Dr. Nasim Dumont. FINAL DIAGNOSIS: Acute respiratory failure due to pneumonia and chronic obstructive pulmonary disease exacerbation. SECONDARY DIAGNOSES 1. Acute renal failure, resolved. 2. Chronic blood loss anemia with myelodysplastic syndrome. 3. Chronic respiratory failure. CONSULTANTS 1. Dr. Lopez, pulmonary. 2. Dr. Etienne, hematology. PROCEDURES/STUDIES PERFORMED 1. Status post packed red blood cells x1. 2. Peripherally inserted central catheter line placement. HISTORY: Per H&P. HOSPITAL COURSE: Patient underwent a course of IV antibiotics for her pneumonia. She did well. Steroids were used as well for her COPD exacerbation. Patient was extubated. She did require 1 unit of packed red blood cells for her chronic blood loss anemia. As far as her debility, once again we offered retirement for skilled PT, and the is not interested. Patient is not interested either. Patient will go home on a prednisone taper down to 2.5 mg. Patient will follow up with Dr. Lopez. Nexium was written for her GERD. Patient was seen and examined today. I have discussed with Dr. Lopez today as well. It took 33 minutes total to discharge this patient today. CONDITION ON DISCHARGE: Improved. DISCHARGE MEDICATIONS: Please see medication reconciliation form. RUTH MILLIGAN M.D. Job#: [id number] EV cc:NASIM DUMONT MD
[2018-04-21] MEDS: LORAZEPAM 0.5 MG TAB PO PRN (14:12)
[2018-04-21] MEDS ORDERED: PREDNISONE20 MG PO (14:43)
--- NOTE | 2018-04-21 14:46 | Progress Note ---
DATE: April 21, 2018 PULMONARY MEDICINE PROGRESS NOTE SUBJECTIVE: Ms. Pan was seen and examined at bedside. She continues with steady progress. Patient remains slowly getting better. She was able to walk in the halls with a walker today. Out of discussion with her, she prefers to go home rather than go to a rehab facility. REVIEW OF SYSTEMS: No bleeding, no chest pain. OBJECTIVE VITAL SIGNS: Afebrile. Vital signs noted per electronic record. GENERALLY: No acute distress. HEENT: Normocephalic. NECK: Supple. LUNGS: Bilateral air entry. CARDIOVASCULAR: S1 and S2. ABDOMINAL: Soft. EXTREMITIES: She has 1+ edema of the legs. INTEGUMENT: Thin skin. LABS: Potassium 3.6, creatinine 0.7. White count 9, hematocrit 26. IMPRESSION AND PLAN 1. Acute respiratory failure, extubated. 2. Chronic obstructive pulmonary disease with exacerbation. 3. Hereditary angioedema. 4. Weakness. Solu-Medrol is now off. Continue prednisone taper all the way to 2.5 mg but continue at 2.5 mg. Avoid allergens. Patient needs aggressive treatment of her GERD. Her GERD is possibly what is accounting for some of these flareups. Job#: [id number] EV
--- NOTE | 2018-04-21 21:25 | Progress Note ---
DATE: April 21, 2018 FOLLOWUP NOTE CHIEF COMPLAINT: Ms. Pan is a 68-year-old female with multiple medical problems including known history of COPD, [id number] respiratory failure, hereditary angioedema, and myelodysplastic syndrome, admitted due to respiratory failure. She was intubated, required antibiotics support. Hematology-oncology was consulted due to myelodysplastic syndrome. She has been given blood transfusion with improved counts. She is going to be discharged with instructions to follow up as outpatient. Job#: [id number]
[2018-05-20] MEDS ORDERED: PREDNISONE10 MG PO ×3 (10:28→10:30)
== END 2018-04-21 15:46 | disposition home or self-care (01) | DRG 871 ==
LOC: ER 21:59 → ERHOLD 04-13 00:45 → ICU 04-13 01:46 → IMCU 04-14 13:30 → ICU 04-15 08:26 → IMCU 04-18 09:44
PROVIDERS: ADMIT Internal Medicine; ATTEND Internal Medicine
PROC: 5A1935Z Respiratory Ventilation, Less than 24 Consecutive Hours (ICD-10-PCS; principal; 2018-04-12)
PROC: 0BH17EZ Insertion of Endotracheal Airway into Trachea, Via Natural or Artificial Opening (ICD-10-PCS; 2018-04-12)
PROC: 30233N1 Transfusion of Nonautologous Red Blood Cells into Peripheral Vein, Percutaneous Approach (ICD-10-PCS; 2018-04-14)
PROC: 5A1945Z Respiratory Ventilation, 24-96 Consecutive Hours (ICD-10-PCS; 2018-04-15)
PROC: 0BH17EZ Insertion of Endotracheal Airway into Trachea, Via Natural or Artificial Opening (ICD-10-PCS; 2018-04-15)
PROC: 02HV33Z Insertion of Infusion Device into Superior Vena Cava, Percutaneous Approach (ICD-10-PCS; 2018-04-15)
DX: A41.9 Sepsis, unspecified organism (principal); J69.0 Pneumonitis due to inhalation of food and vomit; J15.9 Unspecified bacterial pneumonia; J96.21 Acute and chronic respiratory failure with hypoxia; J44.0 Chronic obstructive pulmonary disease with (acute) lower respiratory infection; J44.1 Chronic obstructive pulmonary disease with (acute) exacerbation; E87.1 Hypo-osmolality and hyponatremia; E44.1 Mild protein-calorie malnutrition; E87.2 Acidosis; N17.9 Acute kidney failure, unspecified; R65.20 Severe sepsis without septic shock; D84.1 Defects in the complement system; D46.9 Myelodysplastic syndrome, unspecified; E78.5 Hyperlipidemia, unspecified; K21.9 Gastro-esophageal reflux disease without esophagitis; Z83.3 Family history of diabetes mellitus; Z82.49 Family history of ischemic heart disease and other diseases of the circulatory system; Z88.5 Allergy status to narcotic agent; Z87.891 Personal history of nicotine dependence; I12.9 Hypertensive chronic kidney disease with stage 1 through stage 4 chronic kidney disease, or unspecified chronic kidney disease; N18.3 Chronic kidney disease, stage 3 (moderate); E83.51 Hypocalcemia; D50.0 Iron deficiency anemia secondary to blood loss (chronic); R13.10 Dysphagia, unspecified; L50.9 Urticaria, unspecified; R53.1 Weakness; R53.81 Other malaise
CPT/HCPCS: 31500; 36415; 36569; 36600; 51700; 71045; 74018; 80048; 80053; 80076; 80202; 81001; 82330; 82550; 82553; 82805; 82948; 83605; 83735; 83880; 84443; 84484; 85014; 85018; 85025; 85610; 85730; 86160; 86162; 86850; 86900; 86920; 87040; 87070; 87086; 87205; 93005; 94002; 94003; 94640; 94660; 94760; 96365; 96366; 96374; 97139; 99285; J0330; J0456; J0610; J0692; J1940; J2060; J2250; J2405; J2543; J2920; J2930; J3370; J3410; J7030; J7050; P9016